=== PATIENT | female | born 1950 | race American Indian/Alaskan Native ===

== ENCOUNTER 2018-04-27 08:47 | Outpatient (CLI) | payer MEDICARE ==
--- NOTE | 2018-04-27 12:02 | Cat Scan Report ---
FINAL REPORT EXAM: CT ABDOMEN PELVIS WO CON HISTORY: K43.2 INCISIONAL HERNIA WITHOUT OBSTRUCTION OR GANGRENE TECHNIQUE: CT of the abdomen and pelvis without IV contrast. Coronal and sagittal reconstructed imaging provided. PRIORS: None currently available. FINDINGS: ABDOMEN: Mild scarring discoid subsegmental atelectasis at the lung bases. Partially imaged mild cardiomegaly. Small pericardial effusion. Liver, gallbladder, stomach, spleen, pancreas, and adrenals unremarkable. Kidneys: No hydronephrosis. No nephroureteral stones. IVC is unremarkable. Mild aortic atherosclerotic disease. No aneurysm. No periaortic or retroperitoneal mass or adenopathy. Wall thickening and inflammatory stranding at the proximal sigmoid colon. Diverticulosis. No perforation. No abscess. [id number] stool in the remainder of the colon without wall thickening or inflammatory changes. Terminal ileum is unremarkable. Appendix is not clearly identified. No pericecal inflammatory changes. Small bowel loops are unremarkable. No obstructive pattern. No free air. No free fluid. Fat containing ventral hernias without strangulation. PELVIS: Enlarged heterogeneous uterus with calcifications suggests fibroid uterus with degenerating fibroids. Bladder is unremarkable. There is no pelvic mass or adenopathy. Inguinal regions are unremarkable. Bones: No suspicious osseous lesions on this limited examination of the skeleton. Metastatic disease better evaluated with bone scan. Degenerative changes are in the spine. IMPRESSION: Multiple fat containing ventral hernias without strangulation. Focal sigmoid diverticulitis without perforation or abscess. Cardiomegaly. Small pericardial effusion.
== END 2018-04-27 08:48 | disposition home or self-care (01) ==
LOC: CT 08:47
PROVIDERS: ATTEND Surgery
DX: K43.2 Incisional hernia without obstruction or gangrene (principal); K57.32 Diverticulitis of large intestine without perforation or abscess without bleeding; I51.7 Cardiomegaly; I31.3 Pericardial effusion (noninflammatory); J98.11 Atelectasis; M47.899 Other spondylosis, site unspecified; E11.65 Type 2 diabetes mellitus with hyperglycemia; I10 Essential (primary) hypertension
CPT/HCPCS: 74176

== ENCOUNTER 2018-12-24 12:10 | Inpatient (IN) | payer MEDICARE ==
--- NOTE | 2018-12-24 12:29 | Emergency Department Report ---
Blank Doc - Documentation Documentation: This is a 68-year-old female that felt very hot and had a syncopal episode. This initial assessment/diagnostic orders/clinical plan/treatment(s) is/are subject to change based on patient's health status, clinical progression and re- assessment by fellow clinical providers in the ED. Further treatment and workup at subsequent clinical providers discretion. Patient/guardians urged not to elope from the ED as their condition may be serious if not clinically assessed and managed. Initial orders include: 1- Patient sent to MAIN for further evaluation and treatment 2- labs 3- EKG 4- CT head
[2018-12-24 12:48] LABS: Basophils # (Auto) 0.1 K/mm3 (0.0-0.1); Basophils % (Auto) 1.1 % (0.0-1.8); Eosinophils # (Auto) 0.1 K/mm3 (0.0-0.4); Hematocrit 30.8 % (30.3-42.9); Lymphocytes # (Auto) 1.5 K/mm3 (1.2-5.4); Lymphocytes % (Auto) 26.5 % (13.4-35.0); Mean Corpuscular HGB Conc 33 % (30-34); Mean Corpuscular Volume 86 fl (79-97); Monocytes # (Auto) 0.4 K/mm3 (0.0-0.8); Monocytes % (Auto) 6.7 % (0.0-7.3); Platelet Count 261 K/mm3 (140-440)
[2018-12-24 12:57] LABS: INR 0.94 (0.87-1.13)
[2018-12-24 12:58] LABS: Partial Thromboplastin Time 28.9 Sec. (24.2-36.6)
--- NOTE | 2018-12-24 13:02 | XRay Report ---
Chest 2 views: History: Syncope. Findings: Borderline cardiomegaly. Trachea is midline. No consolidation, pneumothorax or pleural effusion. There is ill-defined nodular density measuring 2 cm in diameter noted overlying the anterior aspect of lower thoracic vertebral body at the level of the hilum. This may be osteophytes or a lung nodule. Impression: Findings as detailed above. Recommend CT scan for further evaluation.
[2018-12-24] MEDS ORDERED: NACL 0.9% 500 ML 500 ML IV ONE (13:17)
--- NOTE | 2018-12-24 13:18 | Emergency Department Report ---
ED General Adult HPI - General Chief complaint: Syncope Stated complaint: PASSED OUT/DIABETIC Time Seen by Provider: 12/24/18 12:26 Source: patient, EMS (ems notes not available at time of chart dictation), RN notes reviewed Mode of arrival: Stretcher Limitations: No Limitations - History of Present Illness Initial comments: This is a 68-year-old female. Patient is not known to this provider previously. Past medical history includes diabetes, and hypertension. She does not know the name of her primary care doctor. The patient reports feeling in her usual state of health today, when she was at a store, and began to feel "overheated" she reports that after the sensation of feeling overheated, she walked outside, and continued to feel overheated. She then reports nonspecific dizziness, which she describes as a sensation of lightheadedness, nausea, malaise, feeling queasy, and then felt like she was going to pass out. However, she did not pass out. She is not having physical pain. She currently denies headache, neck pain, chest pain, abdominal pain, nausea, shortness of breath, urinary symptoms. The patient denies DVT, pulmonary embolus risk factors. The patient reports that this has not happened to her in the past, that she can recall. -: Gradual Severity scale (0 -10): 0 Consistency: now resolved Improves with: none Worsens with: none - Related Data Previous Rx's Medication Instructions Recorded Last Taken Type Sulfamethoxazole/Trimethoprim 1 each PO BID #20 tablet 11/01/16 12/24/18 09:00 Rx [Bactrim DS TAB] amLODIPine [Norvasc] 5 mg PO DAILY #30 tab 11/01/16 12/24/18 09:00 Rx metFORMIN [Glucophage] 500 mg PO BID #60 tablet 11/01/16 12/24/18 09:00 Rx Allergies Allergy/AdvReac Type Severity Reaction Status Date / Time No Known Allergies Allergy Unverified 06/23/16 14:03 ED Review of Systems ROS: Stated complaint: PASSED OUT/DIABETIC Other details as noted in HPI Constitutional: malaise, weakness. denies: fever Eyes: denies: eye discharge, vision change ENT: denies: epistaxis Respiratory: denies: cough Cardiovascular: syncope. denies: chest pain Gastrointestinal: nausea, vomiting Genitourinary: denies: dysuria Musculoskeletal: denies: back pain Skin: denies: lesions Neurological: weakness Psychiatric: denies: anxiety ED Past Medical Hx - Past Medical History Hx Hypertension: Yes Hx Diabetes: Yes - Social History Smoking Status: Never Smoker Substance Use Type: None - Medications Home Medications: Home Medications Medication Instructions Recorded Confirmed Last Taken Type Sulfamethoxazole/Trimethoprim 1 each PO BID #20 tablet 11/01/16 12/24/18 12/24/18 09:00 Rx [Bactrim DS TAB] amLODIPine [Norvasc] 5 mg PO DAILY #30 tab 11/01/16 12/24/18 12/24/18 09:00 Rx metFORMIN [Glucophage] 500 mg PO BID #60 tablet 11/01/16 12/24/18 12/24/18 09:00 Rx ED Physical Exam - General Limitations: No Limitations General appearance: alert, in no apparent distress - Head Head exam: Present: atraumatic, normocephalic - Eye Eye exam: Present: normal appearance, PERRL, EOMI, other (visual acuity intact to finger counting, color perception, reading at a close distance). Absent: nystagmus - ENT ENT exam: Present: normal exam, normal orophraynx, mucous membranes moist, normal external ear exam - Neck Neck exam: Present: normal inspection, full ROM. Absent: tenderness, meningismus - Respiratory Respiratory exam: Present: normal lung sounds bilaterally. Absent: respiratory distress - Cardiovascular Cardiovascular Exam: Present: regular rate, normal rhythm. Absent: bradycardia, tachycardia, irregular rhythm, diastolic murmur, rubs, gallop - GI/Abdominal GI/Abdominal exam: Present: soft. Absent: distended, tenderness, guarding, rebound, rigid, pulsatile mass - Extremities Exam Extremities exam: Present: normal inspection, full ROM, pedal edema, other (2+ pulses noted in the bilateral upper, lower extremities. Compartments soft. No long bony tenderness. The pelvis is stable.). Absent: calf tenderness - Back Exam Back exam: Present: normal inspection, full ROM. Absent: tenderness, CVA tenderness (R), paraspinal tenderness, vertebral tenderness - Neurological Exam Neurological exam: Present: alert, other (Extraocular movements intact. Tongue midline. No facial droop. Facial sensation intact to light touch in the V1, V2, V3 distribution bilaterally. 5 and 5 strength in 4 extremities.. Sensation is intact to light touch in 4 extremities.). Absent: motor sensory deficit - Psychiatric Psychiatric exam: Present: normal affect, normal mood - Skin Skin exam: Present: warm, dry, intact, normal color. Absent: rash ED Course Vital Signs 12/24/18 12/24/18 12/24/18 12:26 13:19 13:20 Temperature 97.7 F Pulse Rate 62 65 Respiratory 18 14 13 Rate Blood Pressure 142/67 175/86 O2 Sat by Pulse 99 100 100 Oximetry 12/24/18 12/24/18 12/24/18 13:21 13:22 13:23 Temperature 99 F Pulse Rate 62 63 Respiratory 13 14 Rate Blood Pressure 175/86 175/86 O2 Sat by Pulse 100 100 Oximetry 12/24/18 12/24/18 12/24/18 13:30 13:31 13:33 Temperature Pulse Rate 64 65 66 Respiratory 14 14 15 Rate Blood Pressure 185/83 185/83 185/83 O2 Sat by Pulse 100 100 99 Oximetry 12/24/18 12/24/18 12/24/18 13:35 13:37 13:39 Temperature Pulse Rate 63 68 67 Respiratory 17 16 19 Rate Blood Pressure 185/83 185/83 185/83 O2 Sat by Pulse 98 98 100 Oximetry 12/24/18 12/24/18 12/24/18 13:41 13:43 13:45 Temperature Pulse Rate 68 67 66 Respiratory 14 13 13 Rate Blood Pressure 185/83 185/83 185/83 O2 Sat by Pulse 100 99 100 Oximetry 12/24/18 12/24/18 12/24/18 14:05 14:07 14:09 Temperature Pulse Rate Respiratory Rate Blood Pressure 185/83 185/83 185/83 O2 Sat by Pulse 98 97 97 Oximetry 12/24/18 12/24/18 12/24/18 14:11 14:13 14:15 Temperature Pulse Rate Respiratory Rate Blood Pressure 185/83 185/83 185/83 O2 Sat by Pulse 99 98 99 Oximetry 12/24/18 12/24/18 12/24/18 14:17 14:19 14:21 Temperature Pulse Rate Respiratory Rate Blood Pressure 185/83 185/83 185/83 O2 Sat by Pulse 99 99 98 Oximetry 12/24/18 12/24/18 12/24/18 14:23 14:25 14:27 Temperature Pulse Rate Respiratory Rate Blood Pressure 185/83 185/83 185/83 O2 Sat by Pulse 99 99 99 Oximetry 12/24/18 12/24/18 12/24/18 14:29 14:30 14:31 Temperature Pulse Rate Respiratory Rate Blood Pressure 185/83 175/86 185/83 O2 Sat by Pulse 99 98 98 Oximetry 12/24/18 12/24/18 12/24/18 14:33 14:35 14:37 Temperature Pulse Rate Respiratory Rate Blood Pressure 185/83 185/83 185/83 O2 Sat by Pulse 99 98 98 Oximetry 12/24/18 12/24/18 12/24/18 14:39 14:41 14:43 Temperature Pulse Rate Respiratory Rate Blood Pressure 185/83 185/83 185/83 O2 Sat by Pulse 98 98 98 Oximetry 12/24/18 12/24/18 12/24/18 14:45 14:46 14:47 Temperature Pulse Rate Respiratory Rate Blood Pressure 190/104 190/104 190/104 O2 Sat by Pulse 96 97 97 Oximetry 12/24/18 12/24/18 12/24/18 14:49 14:51 14:53 Temperature Pulse Rate Respiratory Rate Blood Pressure 190/104 190/104 190/104 O2 Sat by Pulse 97 97 97 Oximetry 12/24/18 12/24/18 12/24/18 14:55 14:57 14:59 Temperature Pulse Rate Respiratory Rate Blood Pressure 190/104 190/104 190/104 O2 Sat by Pulse 97 97 98 Oximetry 12/24/18 12/24/18 12/24/18 15:01 15:03 15:05 Temperature Pulse Rate Respiratory Rate Blood Pressure 194/148 194/148 194/148 O2 Sat by Pulse 98 99 98 Oximetry 12/24/18 12/24/18 12/24/18 15:07 15:09 15:11 Temperature Pulse Rate Respiratory Rate Blood Pressure 194/148 194/148 194/148 O2 Sat by Pulse 98 98 98 Oximetry 12/24/18 12/24/18 12/24/18 15:13 15:15 15:16 Temperature Pulse Rate Respiratory Rate Blood Pressure 194/148 173/81 173/81 O2 Sat by Pulse 97 98 97 Oximetry 12/24/18 12/24/18 15:17 15:19 Temperature Pulse Rate Respiratory Rate Blood Pressure 173/81 173/81 O2 Sat by Pulse 98 98 Oximetry - Reevaluation(s) Reevaluation #1: 04/04/19 20:00 The nuclear medicine study is low probability for pulmonary embolus. ED Medical Decision Making - Lab Data Result diagrams: 12/24/18 12:31 12/24/18 12:31 Vital Signs 12/24/18 12/24/18 12/24/18 12:26 13:19 13:20 Temperature 97.7 F Pulse Rate 62 65 Respiratory 18 14 13 Rate Blood Pressure 142/67 175/86 O2 Sat by Pulse 99 100 100 Oximetry 12/24/18 12/24/18 12/24/18 13:21 13:22 13:23 Temperature 99 F Pulse Rate 62 63 Respiratory 13 14 Rate Blood Pressure 175/86 175/86 O2 Sat by Pulse 100 100 Oximetry Lab Results 12/24/18 12/24/18 12/24/18 Range/Units 12:31 12:31 12:31 WBC 5.6 (4.5-11.0) K/mm3 RBC 3.60 L (3.65-5.03) M/mm3 Hgb 10.0 L (10.1-14.3) gm/dl Hct 30.8 (30.3-42.9) % MCV 86 (79-97) fl MCH 28 (28-32) pg MCHC 33 (30-34) % RDW 15.0 (13.2-15.2) % Plt Count 261 (140-440) K/mm3 Lymph % (Auto) 26.5 (13.4-35.0) % [place] % (Auto) 6.7 (0.0-7.3) % Eos % (Auto) 2.0 (0.0-4.3) % Baso % (Auto) 1.1 (0.0-1.8) % Lymph # 1.5 (1.2-5.4) K/mm3 [place] # 0.4 (0.0-0.8) K/mm3 Eos # 0.1 (0.0-0.4) K/mm3 Baso # 0.1 (0.0-0.1) K/mm3 Seg Neutrophils % 63.7 (40.0-70.0) % Seg Neutrophils # 3.5 (1.8-7.7) K/mm3 PT 13.1 (12.2-14.9) Sec. INR 0.94 (0.87-1.13) APTT 28.9 (24.2-36.6) Sec. D-Dimer (0-234) ng/mlDDU Sodium 144 (137-145) mmol/L Potassium 4.7 (3.6-5.0) mmol/L Chloride 108.6 H (98-107) mmol/L Carbon Dioxide 20 L (22-30) mmol/L Anion Gap 20 mmol/L BUN 34 H (7-17) mg/dL Creatinine 2.9 H (0.7-1.2) mg/dL Estimated GFR 19 ml/min BUN/Creatinine Ratio 12 % Glucose 180 H (65-100) mg/dL POC Glucose (70-105) Calcium 10.3 H (8.4-10.2) mg/dL Magnesium 2.00 (1.7-2.3) mg/dL Total Bilirubin 0.30 (0.1-1.2) mg/dL Direct Bilirubin < 0.2 (0-0.2) mg/dL Indirect Bilirubin 0.1 mg/dL AST 18 (5-40) units/L ALT 20 (7-56) units/L Alkaline Phosphatase 126 (35-129) units/L Total Creatine Kinase 159 H (30-135) units/L CK-MB (CK-2) 4.4 H (0.0-4.0) ng/mL CK-MB (CK-2) Rel Index 2.7 (0-4) Troponin T 0.052 H (0.00-0.029) ng/mL Total Protein 7.3 (6.3-8.2) g/dL Albumin 3.4 L (3.9-5) g/dL Albumin/Globulin Ratio 0.9 % Triglycerides 132 (2-149) mg/dL Cholesterol 231 H (50-199) mg/dL LDL Cholesterol Direct 170 H (50-130) mg/dL HDL Cholesterol 63 H (40-59) mg/dL Cholesterol/HDL Ratio 3.66 % TSH (0.270-4.200) mlU/mL 12/24/18 12/24/18 12/24/18 Range/Units 12:33 13:22 13:31 WBC (4.5-11.0) K/mm3 RBC (3.65-5.03) M/mm3 Hgb (10.1-14.3) gm/dl Hct (30.3-42.9) % MCV (79-97) fl MCH (28-32) pg MCHC (30-34) % RDW (13.2-15.2) % Plt Count (140-440) K/mm3 Lymph % (Auto) (13.4-35.0) % [place] % (Auto) (0.0-7.3) % Eos % (Auto) (0.0-4.3) % Baso % (Auto) (0.0-1.8) % Lymph # (1.2-5.4) K/mm3 [place] # (0.0-0.8) K/mm3 Eos # (0.0-0.4) K/mm3 Baso # (0.0-0.1) K/mm3 Seg Neutrophils % (40.0-70.0) % Seg Neutrophils # (1.8-7.7) K/mm3 PT (12.2-14.9) Sec. INR (0.87-1.13) APTT (24.2-36.6) Sec. D-Dimer (0-234) ng/mlDDU Sodium (137-145) mmol/L Potassium (3.6-5.0) mmol/L Chloride (98-107) mmol/L Carbon Dioxide (22-30) mmol/L Anion Gap mmol/L BUN (7-17) mg/dL Creatinine (0.7-1.2) mg/dL Estimated GFR ml/min BUN/Creatinine Ratio % Glucose (65-100) mg/dL POC Glucose 174 H 151 H (70-105) Calcium (8.4-10.2) mg/dL Magnesium (1.7-2.3) mg/dL Total Bilirubin (0.1-1.2) mg/dL Direct Bilirubin (0-0.2) mg/dL Indirect Bilirubin mg/dL AST (5-40) units/L ALT (7-56) units/L Alkaline Phosphatase (35-129) units/L Total Creatine Kinase (30-135) units/L CK-MB (CK-2) (0.0-4.0) ng/mL CK-MB (CK-2) Rel Index (0-4) Troponin T (0.00-0.029) ng/mL Total Protein (6.3-8.2) g/dL Albumin (3.9-5) g/dL Albumin/Globulin Ratio % Triglycerides (2-149) mg/dL Cholesterol (50-199) mg/dL LDL Cholesterol Direct (50-130) mg/dL HDL Cholesterol (40-59) mg/dL Cholesterol/HDL Ratio % TSH 3.130 (0.270-4.200) mlU/mL 12/24/18 12/24/18 Range/Units 13:31 Unknown WBC (4.5-11.0) K/mm3 RBC (3.65-5.03) M/mm3 Hgb (10.1-14.3) gm/dl Hct (30.3-42.9) % MCV (79-97) fl MCH (28-32) pg MCHC (30-34) % RDW (13.2-15.2) % Plt Count (140-440) K/mm3 Lymph % (Auto) (13.4-35.0) % [place] % (Auto) (0.0-7.3) % Eos % (Auto) (0.0-4.3) % Baso % (Auto) (0.0-1.8) % Lymph # (1.2-5.4) K/mm3 [place] # (0.0-0.8) K/mm3 Eos # (0.0-0.4) K/mm3 Baso # (0.0-0.1) K/mm3 Seg Neutrophils % (40.0-70.0) % Seg Neutrophils # (1.8-7.7) K/mm3 PT (12.2-14.9) Sec. INR (0.87-1.13) APTT (24.2-36.6) Sec. D-Dimer 305.08 H (0-234) ng/mlDDU Sodium (137-145) mmol/L Potassium (3.6-5.0) mmol/L Chloride (98-107) mmol/L Carbon Dioxide (22-30) mmol/L Anion Gap mmol/L BUN (7-17) mg/dL Creatinine (0.7-1.2) mg/dL Estimated GFR ml/min BUN/Creatinine Ratio % Glucose (65-100) mg/dL POC Glucose (70-105) Calcium (8.4-10.2) mg/dL Magnesium (1.7-2.3) mg/dL Total Bilirubin (0.1-1.2) mg/dL Direct Bilirubin (0-0.2) mg/dL Indirect Bilirubin mg/dL AST (5-40) units/L ALT (7-56) units/L Alkaline Phosphatase (35-129) units/L Total Creatine Kinase 161 H (30-135) units/L CK-MB (CK-2) (0.0-4.0) ng/mL CK-MB (CK-2) Rel Index (0-4) Troponin T (0.00-0.029) ng/mL Total Protein (6.3-8.2) g/dL Albumin (3.9-5) g/dL Albumin/Globulin Ratio % Triglycerides (2-149) mg/dL Cholesterol (50-199) mg/dL LDL Cholesterol Direct (50-130) mg/dL HDL Cholesterol (40-59) mg/dL Cholesterol/HDL Ratio % TSH (0.270-4.200) mlU/mL - EKG Data -: EKG Interpreted by Tn EKG shows normal: sinus rhythm Rate: normal - EKG Data 12/24/18 15:14 This is a sinus rhythm, 68 bpm, normal axis, QTC prolonged, poor R-wave progression, abnormal EKG, not having chest pain, borderline high left ventricu lar voltage lateral leads, abnormal EKG, not consistent with ST elevation myocardial infarction, Q waves noted in the inferior leads, appears unchanged from prior EKG from October 2016. - Radiology Data Radiology results: report reviewed, image reviewed Print Report Referring Physician: JANUSZ TOLENTINO Patient Name: ANATOLIY BARTHOLOMEW Date of : 1950 Sex: Female Report Date: 2018-12-24 Report Status: [place] [address] Cat Scan Report Signed Patient: ANATOLIY BARTHOLOMEW MR#: [id number] : 1950 Acct:[id number] Age/Sex: 68 / F ADM Date: 12/24/18 Loc: ED Attending Dr: Ordering Physician: JANUSZ TOLENTINO NP Date of Service: 12/24/18 Procedure(s): CT head/brain wo con Accession Number(s): [id number] cc: JANUSZ TOLENTINO NP CT scan of head without IV contrast: No previous studies available. History: Syncope. Findings: Ventricles are midline location. There is dilatation noted of the left ventricle compared to the right. There is ill-defined large area of low attenuation left posterior temporal parietal region. No extra-axial fluid collection. Normal brainstem and cerebellum appear Impression: Large ill- defined area of low attenuation left temporoparietal region is probably chronic ischemia and less likely neoplasm. Clinical correlation and if necessary further evaluation with MRI scan may be advised. Transcribed By: PTP Dictated By: CHAITANYA FAGAN MD Electronically Authenticated By: CHAITANYA FAGAN MD Signed Date/Time: 12/24/18 1358 Print Report Referring Physician: JANUSZ TOLENTINO Patient Name: ANATOLIY BARTHOLOMEW Date of : 1950 Sex: Female Report Date: 2018-12-24 Report Status: Finalized Findings [address] [address] XRay Report Signed Patient: ANATOLIY BARTHOLOMEW MR#: [id number] : 1950 Acct:[id number] Age/Sex: 68 / F ADM Date: 12/24/18 Loc: ED Attending Dr: Ordering Physician: JANUSZ TOLENTINO NP Date of Service: 12/24/18 P rocedure(s): XR chest routine 2V Accession Number(s): [id number] cc: JANUSZ TOLENTINO NP Fluoro Time In Minutes: Chest 2 views: History: Syncope. Findings: Borderline cardiomegaly. Trachea is midline. No consolidation, pneumothorax or pleural effusion. There is ill-defined nodular density measuring 2 cm in diameter noted overlying the anterior aspect of lower thoracic vertebral body at the level of the hilum. This may be osteophytes or a lung nodule. Impression: Findings as detailed above. Recommend CT scan for further evaluation. Transcribed By: PTP Dictated By: CHAITANYA FAGAN MD Electronically Authenticated By: CHAITANYA FAGAN MD Signed Date/Time: 12/24/18 1242 DD/ 1240 TD/TT: 12/24/18 1242 - Medical Decision Making Differential diagnosis, including but not limited to: Orthostasis, vasovagal event, structural cardiac disease, acute coronary syndrome, pulmonary embolus, dehydration, renal insufficiency, pneumonia, urinary tract infection Assessment and plan: 68-year-old female, advanced age, multiple cardiovascular risk factors, with nonspecific dizziness, lightheadedness, now resolved, sensation of near syncope, now resolved, GCS of 15, NIH score of 0, with abnormal EKG, acute renal insufficiency, elevated troponin, low risk by well's criteria, no pulmonary embolus or DVT risk factors. She is pain-free at this time. She will be given IV fluids. Nuclear medicine study is pending. Elevated troponin reviewed and appreciated, likely secondary to renal insufficiency, and probable dehydration. Hospital physician, Dr. Jamil, to admit patient to the medical service. Patient will require admission to the medical service for evaluation of near syncope, renal insufficiency, and elevated troponin. Critical care attestation.: If time is entered above; I have spent that time in minutes in the direct care of this critically ill patient, excluding procedure time. ED Disposition Clinical Impression: ESEQUIEL (acute kidney injury), Near syncope, Elevated troponin Disposition: OP ADMIT IP TO THIS HOSP Is pt being admited?: Yes Does the pt Need Aspirin: Yes Condition: Stable
[2018-12-24 13:26] LABS: Creatine Kinase MB 4.4 ng/mL (0.0-4.0)
[2018-12-24 13:28] LABS: Alanine Aminotransferase 20 units/L (7-56); Albumin 3.4 g/dL (3.9-5); BUN/Creatinine Ratio 12; Blood Urea Nitrogen 34 mg/dL (7-17); Calcium 10.3 mg/dL (8.4-10.2); Hemolysis Index 8
[2018-12-24 13:31] LABS: Bilirubin,Direct < 0.2 mg/dL (0-0.2)
[2018-12-24 13:44] LABS: Chol/HDL Ratio 3.66 %; HDL Cholesterol 63 mg/dL (40-59); LDL Cholesterol,Direct 170 mg/dL (50-130)
--- NOTE | 2018-12-24 14:19 | Cat Scan Report ---
CT scan of head without IV contrast: No previous studies available. History: Syncope. Findings: Ventricles are midline location. There is dilatation noted of the left ventricle compared to the right. There is ill-defined large area of low attenuation left posterior temporal parietal region. No extra-axial fluid collection. Normal brainstem and cerebellum appear Impression: Large ill-defined area of low attenuation left temporoparietal region is probably chronic ischemia and less likely neoplasm. Clinical correlation and if necessary further evaluation with MRI scan may be advised.
[2018-12-24] MEDS ORDERED: BABY ASPIRIN PO ONE (14:30)
--- NOTE | 2018-12-24 14:31 | History and Physical Report ---
History of Present Illness Chief complaint: I dont feel good History of present illness: 68 YO Female with HTN, DM, Dementia presents to ED for evaluation. Pt states that she has experienced feeling "dizzy", and "getting Overheated" as well as feeling weak and nauseated and feeling as if she was going to pass out. Pt denies passing out. Pt transported to [facility] ED via private vehicle. Pt seen and evaluated in ED. Pt denies fever, chills, CP, Palpitations, NVD, Syncope, Vertigo, Headache, Productive cough, BRBPR, unintentional weight loss, night sweats, skin rash, or recent ill contacts, prolonged travel/immobility, individual/family history of DVT/PE. Pt found to have ARF, Acidosis, as well as elevated D dimer. Pt admitted to [facility] unit. Nephrology consulted in ED. VQ scan ordered and is pending at time of admission. No prior admissions for review. All listed medication reconciled at time of admission. Past History Past Medical History: diabetes, hypertension, other (Dementia) Past Surgical History: No surgical history, Other (reviewed) Social history: , lives with family. denies: smoking, alcohol abuse, p rescription drug abuse Family history: no significant family history (reviewed) Medications and Allergies Allergies Allergy/AdvReac Type Severity Reaction Status Date / Time No Known Allergies Allergy Unverified 06/23/16 14:03 Home Medications Medication Instructions Recorded Confirmed Last Taken Type Sulfamethoxazole/Trimethoprim 1 each PO BID #20 tablet 11/01/16 Unknown Rx [Bactrim DS TAB] amLODIPine [Norvasc] 5 mg PO DAILY #30 tab 11/01/16 Unknown Rx metFORMIN [Glucophage] 500 mg PO BID #60 tablet 11/01/16 Unknown Rx Review of Systems Constitutional: weakness, malaise, no weight loss, no weight gain, no fever, no chills Ears, nose, mouth and throat: no ear pain, no tinnitis, no decreased hearing, no nose pain Breasts: no change in shape, no swelling, no mass Cardiovascular: no chest pain, no orthopnea, no palpitations, no rapid/irregular heart beat, no edema Respiratory: no cough, no cough with sputum, no excessive sputum, no hemoptysis, no shortness of breath Gastrointestinal: no nausea, no vomiting, no diarrhea, no constipation Genitourinary Female: no pelvic pain, no flank pain, no menorrhagia, no dysuria, no urinary frequency, no urgency Rectal: no pain, no incontinence, no bleeding Musculoskeletal: no neck stiffness, no neck pain, no arm numbness/tingling, no low back pain Integumentary: no rash, no pruritis, no redness, no sores, no wounds Neurological: no head injury, no transient paralysis, no paralysis, no weakness, no parathesias Psychiatric: no anxiety, no memory loss, no hypersomnia, no change in libido, no suicidal ideation Endocrine: no cold intolerance, no heat intolerance, no polyphagia, no excessive thirst, no polydipsia, no polyuria, no nocturia Hematologic/Lymphatic: no easy bruising, no easy bleeding, no lymphadenopathy, no lymphedema Allergic/Immunologic: no urticaria, no allergic rhinitis, no wheezing, no persistent infections, no anaphylaxis Exam - Constitutional Vitals: Temp Pulse Resp BP Pulse Ox 99 F 63 14 175/86 100 12/24/18 13:23 12/24/18 13:22 12/24/18 13:22 12/24/18 13:22 12/24/18 13:22 General appearance: Present: mild distress - EENT Eyes: Present: PERRL ENT: hearing intact, clear oral mucosa - Neck Neck: Present: supple, normal ROM - Respiratory Respiratory effort: normal Respiratory: bilateral: CTA - Cardiovascular Heart Sounds: Present: S1 & S2. Absent: rub, click - Extremities Extremities: pulses symmetrical, No edema Peripheral Pulses: within normal limits - Abdominal General gastrointestinal: Present: soft, non-tender, non-distended, normal bowel sounds Female genitourinary: Present: normal - Integumentary Integumentary: Present: clear, warm, dry - Musculoskeletal Musculoskeletal: gait normal, strength equal bilaterally - Psychiatric Psychiatric: appropriate mood/affect, intact judgment & insight - Neurologic Neurologic: CNII-XII intact, moves all extremities Results - Labs CBC & Chem 7: 12/24/18 12:31 12/24/18 12:31 Labs: Abnormal lab results 12/24/18 12/24/18 12/24/18 Range/Units 12:31 12:31 12:33 RBC 3.60 L (3.65-5.03) M/mm3 Hgb 10.0 L (10.1-14.3) gm/dl D-Dimer (0-234) ng/mlDDU Chloride 108.6 H (98-107) mmol/L Carbon Dioxide 20 L (22-30) mmol/L BUN 34 H (7-17) mg/dL Creatinine 2.9 H (0.7-1.2) mg/dL Glucose 180 H (65-100) mg/dL POC Glucose 174 H (70-105) Calcium 10.3 H (8.4-10.2) mg/dL Total Creatine Kinase 159 H (30-135) units/L CK-MB (CK-2) 4.4 H (0.0-4.0) ng/mL Troponin T 0.052 H (0.00-0.029) ng/mL Albumin 3.4 L (3.9-5) g/dL Cholesterol 231 H (50-199) mg/dL LDL Cholesterol Direct 170 H (50-130) mg/dL HDL Cholesterol 63 H (40-59) mg/dL 12/24/18 12/24/18 Range/Units 13:22 Unknown RBC (3.65-5.03) M/mm3 Hgb (10.1-14.3) gm/dl D-Dimer 305.08 H (0-234) ng/mlDDU Chloride (98-107) mmol/L Carbon Dioxide (22-30) mmol/L BUN (7-17) mg/dL Creatinine (0.7-1.2) mg/dL Glucose (65-100) mg/dL POC Glucose 151 H (70-105) Calcium (8.4-10.2) mg/dL Total Creatine Kinase (30-135) units/L CK-MB (CK-2) (0.0-4.0) ng/mL Troponin T (0.00-0.029) ng/mL Albumin (3.9-5) g/dL Cholesterol (50-199) mg/dL LDL Cholesterol Direct (50-130) mg/dL HDL Cholesterol (40-59) mg/dL Assessment and Plan - Patient Problems (1) ARF (acute renal failure) with tubular necrosis Current Visit: Yes Status: Acute Plan to address problem: INF resuscitation therapy, Nephrology consulted, renal ultrasound, urine electrolytes, hepatitis panel, (2) Acidosis Current Visit: Yes Status: Acute (3) HLD (hyperlipidemia) Current Visit: Yes Status: Acute Plan to address problem: low cholesterol diet, supportive care. (4) D-dimer, elevated Current Visit: Yes Status: Acute Plan to address problem: VQ Scan, Pending at time of admission. (5) Abnormal brain scan Current Visit: Yes Status: Acute Plan to address problem: Frontotemporal hypoattenuation on CT Scan of brain, Neurology consulted, MRI brain, Neuro checks, seizure precautions, (6) DVT prophylaxis Current Visit: Yes Status: Acute Plan to address problem: SCD to BLE while in bed, (7) Diabetes Current Visit: Yes Status: Acute Qualifiers: Diabetes mellitus complication status: with other specified complication Plan to address problem: ADA diet, insulin, accu check
[2018-12-24] MEDS ORDERED: D50W (25GM) Syringe IV PRN (14:32)
[2018-12-24] MEDS ORDERED: ZOFRAN IV PRN (14:51)
[2018-12-24] MEDS ORDERED: SODIUM CHLORIDE FLUSH SYRINGE 10 ML IV PRN (14:51)
[2018-12-24] MEDS ORDERED: TYLENOL PO PRN (14:51)
[2018-12-24] MEDS ORDERED: PROVENTIL IH PRN (14:51)
--- NOTE | 2018-12-24 16:31 | Nuclear Medicine Report ---
PROCEDURE: Nuclear medicine ventilation and perfusion lung scan. TECHNIQUE: Ventilation imaging was done in the posterior projection using 13.56 mCi of xenon-133 gas . Perfusion imaging was done in multiple projections using 3.99 mCi of technetium 99m MAA. HISTORY: Syncope. COMPARISONS: None. FINDINGS: There is slightly inhomogeneous ventilation bilaterally. There is some trapping of xenon gas bilatera lly during the washout phase. This is worse in the left lung. The perfusion images are more homogeneo us than the ventilation images. There are no perfusion defects identified. The scan caries a very low probability of pulmonary embolism. IMPRESSION: Very low probability of pulmonary embolism. This document is electronically signed by Will Bland MD., December 24 2018 04:30:05 PM ET
[2018-12-24 17:17] LABS: Free T4 (Free Thyroxine) 0.89 ng/dL (0.76-1.46); Hepatitis B Surface Antigen Non-Reactive (Negative); Hepatitis C Virus Antibody Non-Reactive (NonReactive)
[2018-12-24] MEDS: HumaLOG SUB-Q SCH ×2 (18:09→22:33)
[2018-12-24 18:33] LABS: Bacteria,Urine 1+ /HPF (Negative); Bilirubin,Urine NEG (Negative); Blood,Urine SM (Negative); Color,Urine Yellow (Yellow); Mucus,Urine FEW /HPF; Urobilinogen,Urine < 2.0 mg/dL (<2.0)
[2018-12-24 18:39] LABS: Creatinine,Urine 64.4 mg/dL (0.1-20.0)
[2018-12-24 18:46] LABS: Protein,Urine >500 mg/dL (Negative)
[2018-12-24] MEDS: SODIUM CHLORIDE FLUSH SYRINGE 10 ML IV SCH (22:34)
[2018-12-25 07:42] LABS: Calcium 9.6 mg/dL (8.4-10.2)
--- NOTE | 2018-12-25 07:48 | Consultation ---
History of Present Illness - Reason for Consult Consult date: 12/25/18 acute renal failure - History of Present Illness Patient is a 68 YO Female with history significant for HTN, DM type 2 and D ementia who presented to [facility] ED yesterday with c/o profuse sweating and felt like overheated. Patient is a poor historian and vague about the symptoms. She also reports having weakness, nausea and some dizziness. No h/o fever, chills, CP, Palpitations, vomiting, diarrhea, abd pain, Syncope, Headache, cough, rash or leg swelling. She was found to have creatinine of 2.9, increased from 1.2 about 2 years ago. Nephrology was consulted for further evaluation. Past History Past Medical History: diabetes, hypertension, other (Dementia) Past Surgical History: No surgical history, Other (reviewed) Social history: , lives with family. denies: smoking, alcohol abuse, prescription drug abuse Family history: no significant family history (reviewed) Medications and Allergies Allergies Allergy/AdvReac Type Severity Reaction Status Date / Time No Known Allergies Allergy Unverified 06/23/16 14:03 Home Medications Medication Instructions Recorded Confirmed Last Taken Type Sulfamethoxazole/Trimethoprim 1 each PO BID #20 tablet 11/01/16 12/24/18 12/24/18 09:00 Rx [Bactrim DS TAB] amLODIPine [Norvasc] 5 mg PO DAILY #30 tab 11/01/16 12/24/18 12/24/18 09:00 Rx metFORMIN [Glucophage] 500 mg PO BID #60 tablet 11/01/16 12/24/18 12/24/18 09:00 Rx Active Meds: Active Medications Acetaminophen (Tylenol) 650 mg PO Q4H PRN PRN Reason: Pain MILD(1-3)/Fever >100.5/VICTORIA Albuterol (Proventil) 2.5 mg IH Q4HRT PRN PRN Reason: Shortness Of Breath Amlodipine Besylate (Norvasc) 5 mg PO DAILY ZACARIAS Dextrose (D50w (25gm) Syringe) 50 ml IV PRN PRN PRN Reason: Hypoglycemia Insulin Human Lispro (Humalog) 0 unit SUB-Q ACHS ZACARIAS; Protocol Last Admin: 12/24/18 22:33 Dose: 2 unit Documented by: Ondansetron HCl (Zofran) 4 mg IV Q8H PRN PRN Reason: Nausea And Vomiting Sodium Chloride (Sodium Chloride Flush Syringe 10 Ml) 10 ml IV BID ZACARIAS Last Admin: 12/24/18 22:34 Dose: 10 ml Documented by: Sodium Chloride (Sodium Chloride Flush Syringe 10 Ml) 10 ml IV PRN PRN PRN Reason: LINE FLUSH Review of Systems Constitutional: no weight loss, no weight gain, no fever, no chills Breasts: deferred Cardiovascular: lightheadedness, high blood pressure, no chest pain, no orthopnea, no palpitations, no edema, no syncope, no shortness of breath, no leg edema Respiratory: no cough, no hemoptysis, no shortness of breath, no dyspnea on exer tion, no sleep apnea, no home oxygen Gastrointestinal: nausea, no abdominal pain, no vomiting, no diarrhea, no melena Genitourinary Female: no dysuria, no hematuria Rectal: no bleeding Integumentary: no wounds, no jaundice Neurological: no double vision, no loss of vision Exam - Vital Signs Vital signs: Vital Signs Temp Pulse Resp BP Pulse Ox 97.7 F 62 18 142/67 99 12/24/18 12:26 12/24/18 12:26 12/24/18 12:26 12/24/18 12:26 12/24/18 12:26 - General Appearance General appearance: well-developed, well-nourished, appears stated age, other ( not in distress) EENT: ATNC, PERRL, mucous membranes moist, hearing intact, vision intact Neck: Present: neck supple, trachea midline Respiratory: Clear to Ascultation Heart: regular, S1S2, no murmurs Gastrointestinal: Present: normoactive bowel sounds. Absent: tenderness, distended Integumentary: no rash, warm and dry Neurologic: no focal deficit, no asterixis Musculoskeletal: Present: other (no edema) Results - Lab Results 12/24/18 12:31 12/25/18 06:50 Most recent lab results Calcium 9.6 mg/dL (8.4-10.2) 12/25/18 06:50 Magnesium 2.00 mg/dL (1.7-2.3) 12/24/18 12:31 Urine Creatinine 64.4 mg/dL (0.1-20.0) H 12/24/18 18:08 Urine Sodium 65 mmol/L 12/24/18 18:08 - Image Kidney/bladder ultrasound: pending Assessment and Plan 1. Acute kidney injury: Likely vasomotor mediated ESEQUIEL superimposed on CKD. Suspect ATN. Patient was also taking Bactrim. Continue IV fluids. Renal US pending. Renal function is better. Monitor renal function. Avoid nephrotoxic agents. Meds dosage based on GFR. 2. FEN: Volume depletion, continue IV fluids. Mild hyeprcalcemia, 2/2 volume depletion, improved now. 3. Hypertension: Monitor BP. 4. Anemia: Present on admission.
[2018-12-25] MEDS ORDERED: NORVASC PO SCH (10:00)
[2018-12-25] MEDS: HumaLOG SUB-Q SCH ×2 (10:19→13:00)
[2018-12-25] MEDS: SODIUM CHLORIDE FLUSH SYRINGE 10 ML IV SCH ×2 (10:20→23:18)
--- NOTE | 2018-12-25 10:43 | Consultation ---
History of Present Illness Consult date: 12/25/18 Requesting physician: JOANNA KEY Reason for Consult: CT brain with attenuation History of present illness: This is a 68 year old right handed female who reports feeling in her usual state of health 12/24/18, when she was at a store, and began to feel "overheated" she reports that after the sensation of feeling overheated, she walked outside, and continued to feel overheated. She then reports nonspecific dizziness, which she describes as a sensation of lightheadedness, nausea, malaise, feeling queasy, and then felt like she was going to pass out. She presented to the ER where evaluation for PE was neg. She was found to have renal compromise. CY brain reveals a left frontal mass effect. The pt. denies headache, nausea, weakness of the extremities or numbness. She denies problems with balance or walking. She denies ever having a seizure. This a.m. she states that she feels well and the symptoms that occurred yesterday have resolved. Past History Past Medical History: diabetes, hypertension, other (Dementia) Past Surgical History: No surgical history, Other (reviewed) Social history: , lives with family. denies: smoking, alcohol abuse, prescription drug abuse Family history: no significant family history (reviewed) Medications and Allergies Allergies Allergy/AdvReac Type Severity Reaction Status Date / Time No Known Allergies Allergy Unverified 06/23/16 14:03 Home Medications Medication Instructions Recorded Confirmed Last Taken Type Sulfamethoxazole/Trimethoprim 1 each PO BID #20 tablet 11/01/16 12/24/18 12/24/18 09:00 Rx [Bactrim DS TAB] amLODIPine [Norvasc] 5 mg PO DAILY #30 tab 11/01/16 12/24/18 12/24/18 09:00 Rx metFORMIN [Glucophage] 500 mg PO BID #60 tablet 11/01/16 12/24/18 12/24/18 09:00 Rx Active Meds: Active Medications Acetaminophen (Tylenol) 650 mg PO Q4H PRN PRN Reason: Pain MILD(1-3)/Fever >100.5/VICTORIA Albuterol (Proventil) 2.5 mg IH Q4HRT PRN PRN Reason: Shortness Of Breath Amlodipine Besylate (Norvasc) 5 mg PO DAILY ZACARIAS Last Admin: 12/25/18 10:20 Dose: 5 mg Documented by: Dextrose (D50w (25gm) Syringe) 50 ml IV PRN PRN PRN Reason: Hypoglycemia Insulin Human Lispro (Humalog) 0 unit SUB-Q ACHS [facility]; Protocol Last Admin: 12/25/18 10:19 Dose: Not Given Documented by: Ondansetron HCl (Zofran) 4 mg IV Q8H PRN PRN Reason: Nausea And Vomiting Sodium Chloride (Sodium Chloride Flush Syringe 10 Ml) 10 ml IV BID [facility] Last Admin: 12/25/18 10:20 Dose: 10 ml Documented by: Sodium Chloride (Sodium Chloride Flush Syringe 10 Ml) 10 ml IV PRN PRN PRN Reason: LINE FLUSH Review of Systems All systems: negative Cardiovascular: lightheadedness Physical Examination - Vital Signs Vital Signs: Vital Signs Temp Pulse Resp BP Pulse Ox 97.7 F 62 18 142/67 99 12/24/18 12:26 12/24/18 12:26 12/24/18 12:26 12/24/18 12:26 12/24/18 12:26 - Physical Exam Narrative exam: General - Resting comfortably in bed Neurological exam - Speech fluent, relates history well. Oriented times 3. optimization consultant - EOMs full, face symmetric, tongue midline. V-1 thru V-3 intact bilaterally. Hearing intact. Motor - 5/5 throughout Reflexes - trace bilaterally. Sensory - intact to touch and sharp. Cerebellar - intact FTN, Nadia and fine finger movements. Results - Laboratory Findings CBC and BMP: 12/24/18 12:31 12/25/18 06:50 Abnormal Lab Findings: Abnormal Labs 12/24/18 12/24/18 12/24/18 12:31 12:31 12:33 RBC 3.60 L Hgb 10.0 L D-Dimer Chloride 108.6 H Carbon Dioxide 20 L BUN 34 H Creatinine 2.9 H Glucose 180 H POC Glucose 174 H Hemoglobin A1c Calcium 10.3 H Total Creatine Kinase 159 H CK-MB (CK-2) 4.4 H Troponin T 0.052 H Albumin 3.4 L Cholesterol 231 H LDL Cholesterol Direct 170 H HDL Cholesterol 63 H Urine Creatinine 12/24/18 12/24/18 12/24/18 13:22 13:31 15:32 RBC Hgb D-Dimer Chloride Carbon Dioxide BUN Creatinine Glucose POC Glucose 151 H 138 H Hemoglobin A1c Calcium Total Creatine Kinase 161 H CK-MB (CK-2) Troponin T Albumin Cholesterol LDL Cholesterol Direct HDL Cholesterol Urine Creatinine 12/24/18 12/24/18 12/24/18 17:27 18:08 21:58 RBC Hgb D-Dimer Chloride Carbon Dioxide BUN Creatinine Glucose POC Glucose 131 H 166 H Hemoglobin A1c Calcium Total Creatine Kinase CK-MB (CK-2) Troponin T Albumin Cholesterol LDL Cholesterol Direct HDL Cholesterol Urine Creatinine 64.4 H 12/24/18 12/24/18 12/25/18 Unknown Unknown 06:50 RBC Hgb D-Dimer 305.08 H Chloride 110.3 H Carbon Dioxide BUN 31 H Creatinine 2.4 H Glucose 106 H POC Glucose Hemoglobin A1c 7.4 H Calcium Total Creatine Kinase CK-MB (CK-2) Troponin T Albumin Cholesterol LDL Cholesterol Direct HDL Cholesterol Urine Creatinine Assessment and Plan 68 year old female who had a spell on 12/24/18 consisting of feeling hot, then light headed and nauseous. These symptoms have resolved. PE has been ruled out. Renal insufficiency was noted. CT reveals attenuation in left frontal lobe. An MRI scan has been ordered. Plan - Await results of MRI. Because of renal compromise she cannot have a contrast study.
--- NOTE | 2018-12-25 11:26 | Progress Note ---
Assessment and Plan Assessment and plan: 68-year-old woman who presents after feeling hot and nauseus and having an episode of syncope. It occurred when she was walking around in a store. Past medical history; hypertension, diabetes, dementia, peripheral vascular disease Labs show elevated creatinine, elevated d-dimer VQ scan is low probability for pulmonary Chest x-ray shows ill-defined nodular density measuring 2 cm in the lower thoracic vertebral body, maybe a osteophytes versus lung nodule CT head shows large ill-defined area of low attenuation in left temporoparietal region which is most likely chronic ischemia, less likely neoplasm Diagnoses Transient autonomic imbalance Dehydration Hypertension Diabetes , a1c 7.4 abnormal chest x-ray, questionable lung nodule Abnormal CT head, chronic ischemia versus neoplasm Acute kidney injury likely due to vasomotor nephropathy htn urgency Plan Syncope/abnormal CT head: , neurology input appreciated, awaiting MRI brain -Acute kidney injury; continue IV fluids, renal function is improving -Questionable lung nodule; obtain CT chest -Sliding-scale insulin for diabetes, optimize blood pressure medications DVT prophylaxis with Lovenox History Interval history: Review of systems Constitutional: No fevers, no malaise, no joint pains CVS: No chest pain, no orthopnea, no dyspnea on exertion, no pedal edema GI: No abdominal pain, no diarrhea, no vomiting, no constipation Respiratory: No shortness of breath, no wheezing, no coughing Hospitalist Physical - Physical exam Narrative exam: General.: Appears well, no distress, nontoxic HEENT: Moist mucous membranes, extraocular muscles intact, no lymphadenopathy Neck: supple Cardiac: S1-S2 heard Lungs: clear to auscultation bilaterally Abdomen: soft , nontender, nondistended, bowel sounds positive Extremities: no edema clubbing or cyanosis Skin: no rash or lesions Neurologic: no gross focal deficits Psych: calm, and cooperative - Constitutional Vitals: Temp Pulse Resp BP Pulse Ox 98.4 F 72 20 173/75 98 12/25/18 08:13 12/25/18 08:13 12/25/18 08:13 12/25/18 10:20 12/25/18 08:13 General appearance: Present: mild distress Results - Labs CBC & Chem 7: 12/24/18 12:31 12/25/18 06:50 Labs: Laboratory Last Values WBC 5.6 K/mm3 (4.5-11.0) 12/24/18 12:31 RBC 3.60 M/mm3 (3.65-5.03) L 12/24/18 12:31 Hgb 10.0 gm/dl (10.1-14.3) L 12/24/18 12:31 Hct 30.8 % (30.3-42.9) 12/24/18 12:31 MCV 86 fl (79-97) 12/24/18 12:31 MCH 28 pg (28-32) 12/24/18 12:31 MCHC 33 % (30-34) 12/24/18 12:31 RDW 15.0 % (13.2-15.2) 12/24/18 12:31 Plt Count 261 K/mm3 (140-440) 12/24/18 12:31 Lymph % (Auto) 26.5 % (13.4-35.0) 12/24/18 12:31 [place] % (Auto) 6.7 % (0.0-7.3) 12/24/18 12:31 Eos % (Auto) 2.0 % (0.0-4.3) 12/24/18 12:31 Baso % (Auto) 1.1 % (0.0-1.8) 12/24/18 12:31 Lymph # 1.5 K/mm3 (1.2-5.4) 12/24/18 12: [place] # 0.4 K/mm3 (0.0-0.8) 12/24/18 12:31 Eos # 0.1 K/mm3 (0.0-0.4) 12/24/18 12:31 Baso # 0.1 K/mm3 (0.0-0.1) 12/24/18 12:31 Seg Neutrophils % 63.7 % (40.0-70.0) 12/24/18 12: Seg Neutrophils # 3.5 K/mm3 (1.8-7.7) 12/24/18 12:31 PT 13.1 Sec. (12.2-14.9) 12/24/18 12:31 INR 0.94 (0.87-1.13) 12/24/18 12:31 APTT 28.9 Sec. (24.2-36.6) 12/24/18 12:31 D-Dimer 305.08 ng/mlDDU (0-234) H 12/24/18 Unknown Sodium 143 mmol/L (137-145) 12/25/18 06:50 Potassium 4.4 mmol/L (3.6-5.0) 12/25/18 06:50 Chloride 110.3 mmol/L (98-107) H 12/25/18 06:50 Carbon Dioxide 23 mmol/L (22-30) 12/25/18 06:50 Anion Gap 14 mmol/L 12/25/18 06:50 BUN 31 mg/dL (7-17) H 12/25/18 06:50 Creatinine 2.4 mg/dL (0.7-1.2) H 12/25/18 06:50 Estimated GFR 24 ml/min 12/25/18 06:50 BUN/Creatinine Ratio 13 % 12/25/18 06:50 Glucose 106 mg/dL (65-100) H 12/25/18 06:50 POC Glucose 102 (70-105) 12/25/18 09:11 Hemoglobin A1c 7.4 % (4-6) H 12/24/18 Unknown Calcium 9.6 mg/dL (8.4-10.2) 12/25/18 06:50 Magnesium 2.00 mg/dL (1.7-2.3) 12/24/18 12:31 Total Bilirubin 0.30 mg/dL (0.1-1.2) 12/24/18 12:31 Direct Bilirubin < 0.2 mg/dL (0-0.2) 12/24/18 12:31 Indirect Bilirubin 0.1 mg/dL 12/24/18 12:31 AST 18 units/L (5-40) 12/24/18 12:31 ALT 20 units/L (7-56) 12/24/18 12:31 Alkaline Phosphatase 126 units/L (35-129) 12/24/18 12:31 Total Creatine Kinase 161 units/L (30-135) H 12/24/18 13:31 CK-MB (CK-2) 4.4 ng/mL (0.0-4.0) H 12/24/18 12:31 CK-MB (CK-2) Rel Index 2.7 (0-4) 12/24/18 12:31 Troponin T 0.052 ng/mL (0.00-0.029) H 12/24/18 12:31 Total Protein 7.3 g/dL (6.3-8.2) 12/24/18 12:31 Albumin 3.4 g/dL (3.9-5) L 12/24/18 12:31 Albumin/Globulin Ratio 0.9 % 12/24/18 12:31 Triglycerides 132 mg/dL (2-149) 12/24/18 12:31 Cholesterol 231 mg/dL (50-199) H 12/24/18 12:31 LDL Cholesterol Direct 170 mg/dL (50-130) H 12/24/18 12:31 HDL Cholesterol 63 mg/dL (40-59) H 12/24/18 12:31 Cholesterol/HDL Ratio 3.66 % 12/24/18 12:31 TSH 2.250 mlU/mL (0.270-4.200) 12/24/18 16:09 Free T4 0.89 ng/dL (0.76-1.46) 12/24/18 16:09 Urine Color Yellow (Yellow) 12/24/18 17:55 Urine Turbidity Clear (Clear) 12/24/18 17:55 Urine pH 6.0 (5.0-7.0) 12/24/18 17:55 Ur Specific [place] 1.009 (1.003-1.030) 12/24/18 17:55 Urine Protein >500 mg/dL (Negative) 12/24/18 17:55 Urine Glucose (UA) 150 mg/dL (Negative) 12/24/18 17:55 Urine Ketones Neg mg/dL (Negative) 12/24/18 17:55 Urine Blood Sm (Negative) 12/24/18 17:55 Urine Nitrite Neg (Negative) 12/24/18 17:55 Urine Bilirubin Neg (Negative) 12/24/18 17:55 Urine Urobilinogen < 2.0 mg/dL (<2.0) 12/24/18 17:55 Ur Leukocyte Esterase Neg (Negative) 12/24/18 17:55 Urine WBC (Auto) 2.0 /HPF (0.0-6.0) 12/24/18 17:55 Urine RBC (Auto) 3.0 /HPF (0.0-6.0) 12/24/18 17:55 U Epithel Cells (Auto) < 1.0 /HPF (0-13.0) 12/24/18 17:55 Urine Bacteria (Auto) 1+ /HPF (Negative) 12/24/18 17:55 Urine Mucus Few /HPF 12/24/18 17:55 Urine Creatinine 64.4 mg/dL (0.1-20.0) H 12/24/18 18:08 Urine Sodium 65 mmol/L 12/24/18 18:08 Hepatitis A IgM Ab Non-reactive (NonReactive) 12/24/18 16:09 Hep Bs Antigen Non-reactive (Negative) 12/24/18 16:09 Hep B Core IgM Ab Non-reactive (NonReactive) 12/24/18 16:09 Hepatitis C Antibody Non-reactive (NonReactive) 12/24/18 16:09 Active Medications - Current Medications Current Medications: Generic Name Dose Route Start Last Admin Trade Name Freq PRN Reason Stop Dose Admin Acetaminophen 650 mg 12/24/18 14:51 Tylenol PO Q4H PRN Pain MILD(1-3)/Fever >100.5/VICTORIA Albuterol 2.5 mg 12/24/18 14:51 Proventil IH Q4HRT PRN Shortness Of Breath Amlodipine Besylate 5 mg 12/25/18 10:00 12/25/18 10:20 Norvasc PO 5 mg DAILY ZACARIAS Administration Dextrose 50 ml 12/24/18 14:32 D50w (25gm) Syringe IV PRN PRN Hypoglycemia Insulin Human Lispro 0 unit 12/24/18 16:30 12/25/18 10:19 Humalog SUB-Q Not Given ACHS [facility] Protocol Ondansetron HCl 4 mg 12/24/18 14:51 Zofran IV Q8H PRN Nausea And Vomiting Sodium Chloride 10 ml 12/24/18 22:00 12/25/18 10:20 Sodium Chloride Flush Syringe 10 Ml IV 10 ml BID ZACARIAS Administration Sodium Chloride 10 ml 12/24/18 14:51 Sodium Chloride Flush Syringe 10 Ml IV PRN PRN LINE FLUSH
[2018-12-25] MEDS ORDERED: APRESOLINE IV PRN (11:31)
[2018-12-25] MEDS: NACL 0.45% 1000 ML 1,000 ML IV SCH ×2 (13:01→23:24)
--- NOTE | 2018-12-25 18:52 | Cat Scan Report ---
PROCEDURE: CT CHEST WO CON TECHNIQUE: Axial images were performed from the lung apices to the bases. Multiplanar reformats were performed on the acquisition scanner. Total exam DLP 937.50 mGy-centimeter HISTORY: lung nodule on cxr COMPARISONS: Chest x-ray 12/24/2018 FINDINGS: No lung windows were provided. There is mild hypoventilatory changes most severe in both lung bases with crowding of the vasculature and bronchi. No pulmonary nodule or focal infiltrate is identified. There are small axillary lymph nodes. There is small to moderate pericardial effusion. Heart size is upper limits normal. Calcific coronary artery disease. Trace bilateral pleural effusions. Small mediastinal lymph nodes. Aorta has normal course and caliber with mild atheromatous disease. Imaged upper abdomen demonstrates distended gallbladder with possible dependent sludge and stone. Oth erwise unremarkable. Degenerative spondylitic change of the thoracic spine. Multiple degenerative sclerotic fissural white es of the endplates. Sclerotic appearing T2 vertebral body diffusely. IMPRESSION: Mild to moderate pericardial effusion. Trace bilateral pleural effusions. No focal nodule. Hypoventilatory changes in the lungs without focal infiltrate. Small lymph nodes in the mediastinum, limited without IV contrast ministration. Diffusely sclerotic T2 vertebral body of uncertain etiology. Correlate for any history of primary tristan plasm. Calcific coronary artery disease advanced for patient's gender. Gallstones and sludge.. This document is electronically signed by Gracia Castellon MD., December 25 2018 06:51:04 PM ET
[2018-12-25] MEDS: PROCARDIA XL PO SCH (23:18)
[2018-12-26 06:50] LABS: Calcium 9.8 mg/dL (8.4-10.2)
--- NOTE | 2018-12-26 07:39 | Progress Note ---
Assessment and Plan 1. Acute kidney injury: Likely vasomotor mediated ESEQUIEL superimposed on CKD. Suspect ATN. Continue IV fluids. Renal US pending. Renal function is better. Monitor renal function. Avoid nephrotoxic agents. Meds dosage based on GFR. 2. FEN: Volume depletion, IV fluids. Mild hypercalcemia, 2/2 volume depletion, improved now. 3. Hypertension: Monitor BP. 4. Anemia: Present on admission. Subjective Date of service: 12/26/18 Interval history: Patient was seen and examined at the bedside. Doing well. Objective - General Appearance General appearance: well-developed, well-nourished, appears stated age, obese, other (not in distress) EENT: ATNC, PERRL, mucous membranes moist, hearing intact, vision intact Neck: supple Respiratory: Present: Clear to Ascultation Cardiology: regular, S1S2, no murmurs Gastrointestinal: normoactive bowel sounds, no tenderness, no distended, obese Integumentary: no rash, warm and dry Neurologic: no focal deficit, no asterixis Musculoskeletal: other (no edema) Psychiatric: cooperative - Lab 12/24/18 12:31 12/27/18 05:27 Most recent lab results Calcium 9.8 mg/dL (8.4-10.2) 12/26/18 06:05 Magnesium 2.00 mg/dL (1.7-2.3) 12/24/18 12:31 Urine Creatinine 64.4 mg/dL (0.1-20.0) H 12/24/18 18:08 Urine Sodium 65 mmol/L 12/24/18 18:08 Medications & Allergies - Medications Allergies/Adverse Reactions: Allergies No Known Allergies Allergy (Unverified 06/23/16 14:03) Home Medications: Home Medications Medication Instructions Recorded Confirmed Last Taken Type Insulin Glargine [Lantus] 7 units SQ QHS #1 vial 12/27/18 Unknown Rx NIFEdipine XL [Procardia Xl] 60 mg PO Q12HR #60 tablet 12/27/18 Unknown Rx Active Medications: Generic Name Dose Route Start Last Admin Trade Name Freq PRN Reason Stop Dose Admin Acetaminophen 650 mg 12/24/18 14:51 Tylenol PO Q4H PRN Pain MILD(1-3)/Fever >100.5/VICTORIA Albuterol 2.5 mg 12/24/18 14:51 Proventil IH Q4HRT PRN Shortness Of Breath Dextrose 50 ml 12/24/18 14:32 D50w (25gm) Syringe IV PRN PRN Hypoglycemia Enoxaparin Sodium 30 mg 12/26/18 10:00 Lovenox SUB-Q QDAY ZACARIAS Hydralazine HCl 10 mg 12/25/18 11:31 Apresoline IV Q4HR PRN BP >160/100 Sodium Chloride 1,000 mls @ 125 mls/hr 12/25/18 12:00 12/25/18 23:24 Nacl 0.45% 1000 Ml IV 125 mls/hr DIRECT ZACARIAS Administration Insulin Human Lispro 0 unit 12/24/18 16:30 12/25/18 13:00 Humalog SUB-Q 2 unit ACHS ZACARIAS Administration Protocol Nifedipine 60 mg 12/25/18 22:00 12/25/18 23:18 Procardia Xl PO 60 mg Q12HR ZACARIAS Administration Ondansetron HCl 4 mg 12/24/18 14:51 Zofran IV Q8H PRN Nausea And Vomiting Sodium Chloride 10 ml 12/24/18 22:00 12/25/18 23:18 Sodium Chloride Flush Syringe 10 Ml IV 10 ml BID ZACARIAS Administration Sodium Chloride 10 ml 12/24/18 14:51 Sodium Chloride Flush Syringe 10 Ml IV PRN PRN LINE FLUSH
[2018-12-26] MEDS: HumaLOG SUB-Q SCH ×5 (08:00→23:20)
--- NOTE | 2018-12-26 09:10 | Progress Note ---
Assessment and Plan Assessment and plan: 68-year-old woman who presents after feeling hot and nauseus and having an episode of syncope. It occurred when she was walking around in a store. Past medical history; hypertension, diabetes, dementia, peripheral vascular disease Labs show elevated creatinine, elevated d-dimer VQ scan is low probability for pulmonary Chest x-ray shows ill-defined nodular density measuring 2 cm in the lower thoracic vertebral body, maybe a osteophytes versus lung nodule CT head shows large ill-defined area of low attenuation in left temporoparietal region which is most likely chronic ischemia, less likely neoplasm CT chest does not show any infiltrates or nodules MRI brain is done, report is pending Diagnoses Transient autonomic imbalance Dehydration Hypertension Diabetes , a1c 7.4 abnormal chest x-ray, Lung nodule ruled out Abnormal CT head, chronic ischemia versus neoplasm Acute kidney injury likely due to vasomotor nephropathy, upon CKD htn urgency Plan Syncope/abnormal CT head: , neurology input appreciated, awaiting MRI brain report -Acute kidney injury; continue IV fluids, renal function is improving -CT chest negative for any nodules or infiltrates -Sliding-scale insulin for diabetes, optimize blood pressure medications DVT prophylaxis with Lovenox History Interval history: Review of systems Constitutional: No fevers, no malaise, no joint pains CVS: No chest pain, no orthopnea, no dyspnea on exertion, no pedal edema GI: No abdominal pain, no diarrhea, no vomiting, no constipation Respiratory: No shortness of breath, no wheezing, no coughing Hospitalist Physical - Physical exam Narrative exam: General.: Appears well, no distress, nontoxic HEENT: Moist mucous membranes, extraocular muscles intact, no lymphadenopathy Neck: supple Cardiac: S1-S2 heard Lungs: clear to auscultation bilaterally Abdomen: soft , nontender, nondistended, bowel sounds positive Extremities: no edema clubbing or cyanosis Skin: no rash or lesions Neurologic: no gross focal deficits Psych: calm, and cooperative - Constitutional Vitals: Temp Pulse Resp BP Pulse Ox 98.3 F 69 20 174/63 96 12/25/18 19:37 12/25/18 19:37 12/25/18 19:37 12/25/18 19:37 12/25/18 19:37 General appearance: Present: mild distress Results - Labs CBC & Chem 7: 12/24/18 12:31 12/26/18 06:05 Labs: Laboratory Last Values WBC 5.6 K/mm3 (4.5-11.0) 12/24/18 12:31 RBC 3.60 M/mm3 (3.65-5.03) L 12/24/18 12:31 Hgb 10.0 gm/dl (10.1-14.3) L 12/24/18 12:31 Hct 30.8 % (30.3-42.9) 12/24/18 12:31 MCV 86 fl (79-97) 12/24/18 12:31 MCH 28 pg (28-32) 12/24/18 12:31 MCHC 33 % (30-34) 12/24/18 12:31 RDW 15.0 % (13.2-15.2) 12/24/18 12:31 Plt Count 261 K/mm3 (140-440) 12/24/18 12:31 Lymph % (Auto) 26.5 % (13.4-35.0) 12/24/18 12:31 [place] % (Auto) 6.7 % (0.0-7.3) 12/24/18 12:31 Eos % (Auto) 2.0 % (0.0-4.3) 12/24/18 12:31 Baso % (Auto) 1.1 % (0.0-1.8) 12/24/18 12: Lymph # 1.5 K/mm3 (1.2-5.4) 12/24/18 12: [place] # 0.4 K/mm3 (0.0-0.8) 12/24/18 12: Eos # 0.1 K/mm3 (0.0-0.4) 12/24/18 12:31 Baso # 0.1 K/mm3 (0.0-0.1) 12/24/18 12: Seg Neutrophils % 63.7 % (40.0-70.0) 12/24/18 12: Seg Neutrophils # 3.5 K/mm3 (1.8-7.7) 12/24/18 12:31 PT 13.1 Sec. (12.2-14.9) 12/24/18 12:31 INR 0.94 (0.87-1.13) 12/24/18 12:31 APTT 28.9 Sec. (24.2-36.6) 12/24/18 12:31 D-Dimer 305.08 ng/mlDDU (0-234) H 12/24/18 Unknown Sodium 142 mmol/L (137-145) 12/26/18 06:05 Potassium 4.0 mmol/L (3.6-5.0) 12/26/18 06:05 Chloride 109.8 mmol/L (98-107) H 12/26/18 06:05 Carbon Dioxide 22 mmol/L (22-30) 12/26/18 06:05 Anion Gap 14 mmol/L 12/26/18 06:05 BUN 27 mg/dL (7-17) H 12/26/18 06:05 Creatinine 2.3 mg/dL (0.7-1.2) H 12/26/18 06:05 Estimated GFR 25 ml/min 12/26/18 06:05 BUN/Creatinine Ratio 12 % 12/26/18 06:05 Glucose 145 mg/dL (65-100) H 12/26/18 06:05 POC Glucose 124 (70-105) H 12/26/18 07:35 Hemoglobin A1c 7.4 % (4-6) H 12/24/18 Unknown Calcium 9.8 mg/dL (8.4-10.2) 12/26/18 06:05 Magnesium 2.00 mg/dL (1.7-2.3) 12/24/18 12:31 Total Bilirubin 0.30 mg/dL (0.1-1.2) 12/24/18 12:31 Direct Bilirubin < 0.2 mg/dL (0-0.2) 12/24/18 12:31 Indirect Bilirubin 0.1 mg/dL 12/24/18 12:31 AST 18 units/L (5-40) 12/24/18 12:31 ALT 20 units/L (7-56) 12/24/18 12:31 Alkaline Phosphatase 126 units/L (35-129) 12/24/18 12:31 Total Creatine Kinase 161 units/L (30-135) H 12/24/18 13:31 CK-MB (CK-2) 4.4 ng/mL (0.0-4.0) H 12/24/18 12:31 CK-MB (CK-2) Rel Index 2.7 (0-4) 12/24/18 12:31 Troponin T 0.052 ng/mL (0.00-0.029) H 12/24/18 12:31 Total Protein 7.3 g/dL (6.3-8.2) 12/24/18 12:31 Albumin 3.4 g/dL (3.9-5) L 12/24/18 12:31 Albumin/Globulin Ratio 0.9 % 12/24/18 12:31 Triglycerides 132 mg/dL (2-149) 12/24/18 12:31 Cholesterol 231 mg/dL (50-199) H 12/24/18 12:31 LDL Cholesterol Direct 170 mg/dL (50-130) H 12/24/18 12:31 HDL Cholesterol 63 mg/dL (40-59) H 12/24/18 12:31 Cholesterol/HDL Ratio 3.66 % 12/24/18 12:31 TSH 2.250 mlU/mL (0.270-4.200) 12/24/18 16:09 Free T4 0.89 ng/dL (0.76-1.46) 12/24/18 16:09 Urine Color Yellow (Yellow) 12/24/18 17:55 Urine Turbidity Clear (Clear) 12/24/18 17:55 Urine pH 6.0 (5.0-7.0) 12/24/18 17:55 Ur Specific [place] 1.009 (1.003-1.030) 12/24/18 17:55 Urine Protein >500 mg/dL (Negative) 12/24/18 17:55 Urine Glucose (UA) 150 mg/dL (Negative) 12/24/18 17:55 Urine Ketones Neg mg/dL (Negative) 12/24/18 17:55 Urine Blood Sm (Negative) 12/24/18 17:55 Urine Nitrite Neg (Negative) 12/24/18 17:55 Urine Bilirubin Neg (Negative) 12/24/18 17:55 Urine Urobilinogen < 2.0 mg/dL (<2.0) 12/24/18 17:55 Ur Leukocyte Esterase Neg (Negative) 12/24/18 17:55 Urine WBC (Auto) 2.0 /HPF (0.0-6.0) 12/24/18 17:55 Urine RBC (Auto) 3.0 /HPF (0.0-6.0) 12/24/18 17:55 U Epithel Cells (Auto) < 1.0 /HPF (0-13.0) 12/24/18 17:55 Urine Bacteria (Auto) 1+ /HPF (Negative) 12/24/18 17:55 Urine Mucus Few /HPF 12/24/18 17:55 Urine Creatinine 64.4 mg/dL (0.1-20.0) H 12/24/18 18:08 Urine Sodium 65 mmol/L 12/24/18 18:08 Hepatitis A IgM Ab Non-reactive (NonReactive) 12/24/18 16:09 Hep Bs Antigen Non-reactive (Negative) 12/24/18 16:09 Hep B Core IgM Ab Non-reactive (NonReactive) 12/24/18 16:09 Hepatitis C Antibody Non-reactive (NonReactive) 12/24/18 16:09 Active Medications - Current Medications Current Medications: Generic Name Dose Route Start Last Admin Trade Name Freq PRN Reason Stop Dose Admin Acetaminophen 650 mg 12/24/18 14:51 Tylenol PO Q4H PRN Pain MILD(1-3)/Fever >100.5/VICTORIA Albuterol 2.5 mg 12/24/18 14:51 Proventil IH Q4HRT PRN Shortness Of Breath Dextrose 50 ml 12/24/18 14:32 D50w (25gm) Syringe IV PRN PRN Hypoglycemia Enoxaparin Sodium 30 mg 12/26/18 10:00 Lovenox SUB-Q QDAY ZACARIAS Hydralazine HCl 10 mg 12/25/18 11:31 Apresoline IV Q4HR PRN BP >160/100 Sodium Chloride 1,000 mls @ 125 mls/hr 12/25/18 12:00 12/25/18 23:24 Nacl 0.45% 1000 Ml IV 125 mls/hr DIRECT ZACARIAS Administration Insulin Human Lispro 0 unit 12/24/18 16:30 12/25/18 13:00 Humalog SUB-Q 2 unit ACHS ZACARIAS Administration Protocol Nifedipine 60 mg 12/25/18 22:00 12/25/18 23:18 Procardia Xl PO 60 mg Q12HR ZACARIAS Administration Ondansetron HCl 4 mg 12/24/18 14:51 Zofran IV Q8H PRN Nausea And Vomiting Sodium Chloride 10 ml 12/24/18 22:00 12/25/18 23:18 Sodium Chloride Flush Syringe 10 Ml IV 10 ml BID ZACARIAS Administration Sodium Chloride 10 ml 12/24/18 14:51 Sodium Chloride Flush Syringe 10 Ml IV PRN PRN LINE FLUSH
[2018-12-26] MEDS: PROCARDIA XL PO SCH ×2 (09:48→21:17)
[2018-12-26] MEDS: LOVENOX SUB-Q SCH (09:48)
[2018-12-26] MEDS: SODIUM CHLORIDE FLUSH SYRINGE 10 ML IV SCH ×2 (09:49→21:17)
--- NOTE | 2018-12-26 09:50 | Magnetic Resonance Report ---
PROCEDURE: MR BRAIN WO CON TECHNIQUE: Multisequence, multiplanar MR imaging is obtained through the brain without contrast HISTORY: brain lesion COMPARISONS: Head CT 12/24/2018 FINDINGS: No abnormal susceptibility artifact in the brain. A small amount of cortical and linear subcortical r estricted diffusion is present in the superior left parietal occipital region on axial series 4, imag es 25-27. Subcortical volume loss/encephalomalacia with adjacent increased T2-weighted/FLAIR signal o n axial series 6 and series 7, images 17-21. No focal mass or mass effect is identified. Mild ex vacu o dilatation of the left occipital horn seen on axial series 7, image 13. Underlying mild parenchymal volume loss. Linear periventricular T2/FLAIR signal on series 7, image 15. There are no other areas of restricted diffusion. Normal spherical shape of the globe status post cat aract extraction. No significant abnormality within the paranasal sinuses or mastoid air cells. 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 Cortical necrosis and possible petech ial hemorrhage may be present with small areas of superimposed acute ischemia. No focal mass is prese nt. Underlying mild parenchymal volume loss and chronic sequela of microvascular angiopathy. Notification initiated via [employer] sales support technician following this dictation on 12/26/2018. This document is electronically signed by Will Houston MD., December 26 2018 09:48:06 AM ET
[2018-12-26] MEDS: NACL 0.45% 1000 ML 1,000 ML IV SCH (18:11)
[2018-12-27 01:42] VITALS: BP 139/52
[2018-12-27] MEDS: NACL 0.45% 1000 ML 1,000 ML IV SCH (01:44)
[2018-12-27 06:28] LABS: Calcium 9.6 mg/dL (8.4-10.2)
[2018-12-27] MEDS: HumaLOG SUB-Q SCH ×2 (08:00→12:09)
--- NOTE | 2018-12-27 08:09 | Discharge Summary ---
Providers - Providers Date of Admission: 12/24/18 14:51 Attending physician: LISY WASSERMAN MD 12/24/18 14:56 Consult to Physician [CONS] Routine Comment: called office/[facility] Consulting Provider: SIENNA GU Physician Instructions: Reason For Exam: ARF 12/24/18 14:59 Consult to Physician [CONS] Routine Comment: called [facility]/ [facility] Consulting Provider: EMILIA DELGADILLO Physician Instructions: Reason For Exam: Brain attenuation on CT Scan 12/25/18 08:03 Physical Therapy Evaluation and Treat [CONS] Routine Comment: Reason For Exam: weakness 12/26/18 11:14 Consult to Dietitian/Nutrition [CONS] Routine Physician Instructions: Reason For Exam: Reason for Consult: Malnutrition Primary care physician: [employer]TER HELPER Hospitalization Condition: Stable Hospital course: 68-year-old woman who presents after feeling hot and nauseus and having an episode of syncope. It occurred when she was walking around in a store. Past medical history; hypertension, diabetes, dementia, peripheral vascular disease Labs show elevated creatinine, elevated d-dimer VQ scan is low probability for pulmonary Chest x-ray shows ill-defined nodular density measuring 2 cm in the lower thoracic vertebral body, maybe a osteophytes versus lung nodule CT head shows large ill-defined area of low attenuation in left temporoparietal region which is most likely chronic ischemia, less likely neoplasm CT chest does not show any infiltrates or nodules MRI brain is done, report is pending Diagnoses Transient autonomic imbalance Dehydration Hypertension Diabetes , a1c 7.4 abnormal chest x-ray, Lung nodule ruled out Abnormal CT head, chronic ischemia versus neoplasm Acute kidney injury likely due to vasomotor nephropathy, upon CKD htn urgency Plan Syncope/abnormal CT head: , neurology input appreciated, MRI brain is normal. 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 She has had improvement of kidney function following IV fluids -CT chest negative for any nodules or infiltrates -Insulins optimized she was in hospital, she received dietitian consult. She was counseled about lifestyle modification including diet and exercise, time spent greater than 30 minutes -Bp meds were optimized DVT prophylaxis with Lovenox Disposition: TO HOME OR SELFCARE Time spent for discharge: 33 mins Core Measure Documentation - Palliative Care Palliative Care/ Comfort Measures: Not Applicable - Core Measures Any of the following diagnoses?: none Exam - Constitutional Vitals: Temp Pulse Resp BP Pulse Ox 98.8 F 72 20 139/52 97 12/27/18 01:39 12/27/18 01:39 12/27/18 01:39 12/27/18 01:39 12/27/18 01:39 General appearance: Present: no acute distress, well-nourished - EENT Eyes: Present: PERRL ENT: hearing intact, clear oral mucosa - Neck Neck: Present: supple, normal ROM - Respiratory Respiratory effort: normal Respiratory: bilateral: CTA - Cardiovascular Heart Sounds: Present: S1 & S2. Absent: rub, click - Extremities Extremities: pulses symmetrical, No edema Peripheral Pulses: within normal limits - Abdominal General gastrointestinal: Present: soft, non-tender, non-distended, normal bowel sounds Female genitourinary: Present: normal - Integumentary Integumentary: Present: clear, warm, dry - Musculoskeletal Musculoskeletal: gait normal, strength equal bilaterally - Psychiatric Psychiatric: appropriate mood/affect, intact judgment & insight - Neurologic Neurologic: CNII-XII intact, moves all extremities Plan Follow up with: PRIMARY CAREMD [Primary Care Provider] - 3-5 Days SIENNA GU MD [Staff Physician] - 7 Days Prescriptions: Insulin Glargine [Lantus] 7 units SQ QHS #1 vial NIFEdipine XL [Procardia Xl] 60 mg PO Q12HR #60 tablet
[2018-12-27] MEDS: LOVENOX SUB-Q SCH (09:23)
[2018-12-27] MEDS: PROCARDIA XL PO SCH (09:27)
[2018-12-27] MEDS: SODIUM CHLORIDE FLUSH SYRINGE 10 ML IV SCH (09:27)
--- NOTE | 2018-12-27 10:28 | Progress Note ---
Assessment and Plan 1. Acute kidney injury: Likely vasomotor mediated ESEQUIEL superimposed on CKD. Renal US pending. Renal function is slightly better. Creatinine level is stable. Suspect CKD stage 4. Monitor renal function. Avoid nephrotoxic agents. Meds dosage based on GFR. 2. FEN: Volume depletion, improved. Mild hypercalcemia, 2/2 volume depletion, improved now. 3. Hypertension: Monitor BP. 4. Anemia: Present on admission. F/u with me in 1-2 weeks. Subjective Date of service: 12/27/18 Interval history: Patient was seen and examined at the bedside. Doing well. Objective - Vital Signs Vital signs: Vital Signs - 12hr 12/27/18 01:39 Temperature 98.8 F Pulse Rate 72 Respiratory 20 Rate Blood Pressure 139/52 O2 Sat by Pulse 97 Oximetry - General Appearance General appearance: well-developed, well-nourished, appears stated age, obese, other (not in distress) EENT: ATNC, PERRL, mucous membranes moist, hearing intact, vision intact Neck: supple Respiratory: Present: Clear to Ascultation Cardiology: regular, S1S2, no murmurs Gastrointestinal: normoactive bowel sounds, no tenderness, no distended Integumentary: no rash, warm and dry Neurologic: no focal deficit, no asterixis Musculoskeletal: other (no edema) - Lab 12/24/18 12:31 12/27/18 05:27 Most recent lab results Calcium 9.6 mg/dL (8.4-10.2) 12/27/18 05:27 Magnesium 2.00 mg/dL (1.7-2.3) 12/24/18 12:31 Urine Creatinine 64.4 mg/dL (0.1-20.0) H 12/24/18 18:08 Urine Sodium 65 mmol/L 12/24/18 18:08 Medications & Allergies - Medications Allergies/Adverse Reactions: Allergies No Known Allergies Allergy (Unverified 06/23/16 14:03) Home Medications: Home Medications Medication Instructions Recorded Confirmed Last Taken Type Insulin Glargine [Lantus] 7 units SQ QHS #1 vial 12/27/18 Unknown Rx NIFEdipine XL [Procardia Xl] 60 mg PO Q12HR #60 tablet 12/27/18 Unknown Rx Active Medications: Generic Name Dose Route Start Last Admin Trade Name Freq PRN Reason Stop Dose Admin Acetaminophen 650 mg 12/24/18 14:51 Tylenol PO Q4H PRN Pain MILD(1-3)/Fever >100.5/VICTORIA Albuterol 2.5 mg 12/24/18 14:51 Proventil IH Q4HRT PRN Shortness Of Breath Dextrose 50 ml 12/24/18 14:32 D50w (25gm) Syringe IV PRN PRN Hypoglycemia Enoxaparin Sodium 30 mg 12/26/18 10:00 12/27/18 09:23 Lovenox SUB-Q 30 mg QDAY ZACARIAS Administration Hydralazine HCl 10 mg 12/25/18 11:31 Apresoline IV Q4HR PRN BP >160/100 Sodium Chloride 1,000 mls @ 125 mls/hr 12/25/18 12:00 12/27/18 01:44 Nacl 0.45% 1000 Ml IV 125 mls/hr DIRECT ZACARIAS Administration Insulin Human Lispro 0 unit 12/24/18 16:30 12/27/18 08:00 Humalog SUB-Q Not Given ACHS ZACARIAS Protocol Nifedipine 60 mg 12/25/18 22:00 12/27/18 09:27 Procardia Xl PO 60 mg Q12HR ZACARIAS Administration Ondansetron HCl 4 mg 12/24/18 14:51 Zofran IV Q8H PRN Nausea And Vomiting Sodium Chloride 10 ml 12/24/18 22:00 12/27/18 09:27 Sodium Chloride Flush Syringe 10 Ml IV 10 ml BID ZACARIAS Administration Sodium Chloride 10 ml 12/24/18 14:51 Sodium Chloride Flush Syringe 10 Ml IV PRN PRN LINE FLUSH
--- NOTE | 2018-12-28 09:21 | Ultrasound Report ---
Renal ultrasound: Renal failure. Transabdominal imaging of the right kidney demonstrates a slightly lobulated contour with a length of 12.3 cm. The left renal contour is also lobulated with a length of 12.7 cm. Both kidneys have a slightly increased echogenic pattern. No evidence of parenchymal narrowing. No evidence of mass and no obstructive uropathy nor calculus noted. Imaging of the urinary bladder is grossly normal. Impressions: The mild increased echogenicity is consistent with medical renal disease.
== END 2018-12-27 12:15 | disposition home or self-care (01) | DRG 73 ==
LOC: ED 12:10 → 2B-ACE 14:51
PROVIDERS: ADMIT Internal Medicine; ATTEND Internal Medicine
DX: G90.8 Other disorders of autonomic nervous system (principal); N17.0 Acute kidney failure with tubular necrosis; E87.2 Acidosis; I16.0 Hypertensive urgency; E78.5 Hyperlipidemia, unspecified; E86.9 Volume depletion, unspecified; E83.52 Hypercalcemia; D64.9 Anemia, unspecified; E86.0 Dehydration; I12.9 Hypertensive chronic kidney disease with stage 1 through stage 4 chronic kidney disease, or unspecified chronic kidney disease; N18.9 Chronic kidney disease, unspecified; E11.22 Type 2 diabetes mellitus with diabetic chronic kidney disease; E11.51 Type 2 diabetes mellitus with diabetic peripheral angiopathy without gangrene; F03.90 Unspecified dementia, unspecified severity, without behavioral disturbance, psychotic disturbance, mood disturbance, and anxiety; Z79.899 Other long term (current) drug therapy
CPT/HCPCS: 36415; 70450; 70551; 71046; 71250; 76770; 78582; 80048; 80061; 80074; 80076; 81001; 82550; 82553; 82570; 82962; 83036; 83735; 84300; 84439; 84443; 84484; 85025; 85379; 85610; 85730; 87086; 93005; 93010; G0378; A9540; A9558; J1650; J1815; J7030; J7040

== ENCOUNTER 2019-01-22 11:19 | Emergency (ER) | payer MEDICARE ==
--- NOTE | 2019-01-22 11:38 | Emergency Department Report ---
Blank Doc - Documentation Documentation: 68 Y/0 female referred to ER by her Nephrology since her BP was elevated in his office. Hx/o of HTN. Missed 1 dose of blood pressure medication. Currently on Procardia.
[2019-01-22] MEDS ORDERED: APRESOLINE IV ONE ×2 (11:48→13:23)
--- NOTE | 2019-01-22 11:51 | Emergency Department Report ---
HPI - General Chief Complaint: High BP Time Seen by Provider: 01/22/19 11:45 - HPI HPI: 68-year-old female presents to the emergency department, brought in by her daughter, from her nephrologists office secondary to very elevated blood pressure. The patient takes Procardia but did not take her morning dose today. She has a past medical history of end-stage renal disease not on dialysis, hypertension and diabetes. She denies any headache, vision change, chest pain, shortness of breath or any physical complaints. She is unable to tell me the name of her bone drier whom she saw today. ED Past Medical Hx - Past Medical History Previous Medical History?: Yes Hx Hypertension: Yes Hx Heart Attack/AMI: No Hx Diabetes: Yes Hx Liver Disease: No Hx Renal Disease: Yes - Surgical History Past Surgical History?: No - Social History Smoking Status: Never Smoker Substance Use Type: None - Medications Home Medications: Home Medications Medication Instructions Recorded Confirmed Last Taken Type Insulin Glargine [Lantus] 7 units SQ QHS #1 vial 12/27/18 Unknown Rx NIFEdipine XL [Procardia Xl] 60 mg PO Q12HR #60 tablet 12/27/18 Unknown Rx ED Review of Systems ROS: Stated complaint: HBP Other details as noted in HPI Comment: All other systems reviewed and negative Constitutional: denies: chills, fever Eyes: denies: eye pain, vision change ENT: denies: ear pain, throat pain Respiratory: denies: cough, shortness of breath Cardiovascular: denies: chest pain, palpitations Gastrointestinal: denies: abdominal pain, vomiting Genitourinary: denies: dysuria, discharge Musculoskeletal: denies: back pain, arthralgia Skin: denies: rash, lesions Neurological: denies: headache, weakness Physical Exam - Physical Exam Vital Signs: Vital Signs 01/22/19 11:31 Temperature 97.8 F Pulse Rate 66 Respiratory 18 Rate Blood Pressure 215/91 O2 Sat by Pulse 99 Oximetry Physical Exam: GENERAL: The patient is well-developed well-nourished. HENT: Normocephalic. Atraumatic. Patient has moist mucous membranes. EYES: Extraocular motions are intact. NECK: Supple. Trachea is midline. CHEST/LUNGS: Clear to auscultation. There is no respiratory distress noted. HEART/CARDIOVASCULAR: Regular. There is no tachycardia. There is no murmur. ABDOMEN: Abdomen is soft, nontender. Patient has normal bowel sounds. There is no abdominal distention. SKIN: Skin is warm and dry. NEURO: The patient is awake, alert, and cooperative. The patient has no focal neurologic deficits. The patient has normal speech. MUSCULOSKELETAL: There is no tenderness or deformity. There is no evidence of acute injury. ED Course Vital Signs 01/22/19 11:31 Temperature 97.8 F Pulse Rate 66 Respiratory 18 Rate Blood Pressure 215/91 O2 Sat by Pulse 99 Oximetry ED Medical Decision Making - Lab Data Result diagrams: 01/22/19 11:49 01/22/19 11:49 - Medical Decision Making Patient was sent in by Dr. Gu after she was found to have a blood pressure of about 240 systolic during a follow-up in his office. The patient has no physical complaints. Labs show some chronic kidney disease but otherwise are unremarkable. She was given 2 doses of IV blood pressure medication, hydralazine, and her blood pressure came down to a much more reasonable level. I spoke with her bone drier and updated him on the vitals and labs and he agrees that the patient appears safe for discharge home at this time. He suggested that she take her medications as prescribed but no new medications or orders have been added. She will return to the ER with any worsening of her symptoms or any acute distress. Critical Care Time: No Critical care attestation.: If time is entered above; I have spent that time in minutes in the direct care of this critically ill patient, excluding procedure time. ED Disposition Clinical Impression: Asymptomatic hypertensive urgency CKD (chronic kidney disease) Qualifiers: Chronic kidney disease stage: unspecified stage Qualified Code(s): N18.9 - Chronic kidney disease, unspecified Disposition: - TO HOME OR SELFCARE Is pt being admited?: No Condition: Stable Instructions: Chronic Kidney Disease (ED), Hypertension (ED) Additional Instructions: Please follow-up with your primary care physician and her bone drier. Make sure to take all your medications as prescribed. Return to the emergency Department with any worsening of your symptoms or any acute distress. Referrals: SIENNA GU MD [Staff Physician] - 2-3 Days Time of Disposition: 15:03
[2019-01-22 12:19] LABS: Basophils # (Auto) 0.1 K/mm3 (0.0-0.1); Basophils % (Auto) 1.9 % (0.0-1.8); Eosinophils # (Auto) 0.1 K/mm3 (0.0-0.4); Eosinophils % (Auto) 2.4 % (0.0-4.3); Hematocrit 33.1 % (30.3-42.9); Hemoglobin 10.8 gm/dl (10.1-14.3); Lymphocytes # (Auto) 1.8 K/mm3 (1.2-5.4); Lymphocytes % (Auto) 30.1 % (13.4-35.0); Mean Corpuscular HGB Conc 33 % (30-34); Mean Corpuscular Volume 87 fl (79-97); Monocytes # (Auto) 0.5 K/mm3 (0.0-0.8); Monocytes % (Auto) 8.6 % (0.0-7.3); Platelet Count 282 K/mm3 (140-440)
[2019-01-22 12:38] LABS: Albumin 3.6 g/dL (3.9-5)
[2019-01-22 13:26] LABS: Bacteria,Urine 1+ /HPF (Negative); Bilirubin,Urine NEG (Negative); Blood,Urine SM (Negative); Color,Urine Yellow (Yellow); Urobilinogen,Urine < 2.0 mg/dL (<2.0)
[2019-01-22 13:28] LABS: Protein,Urine >500 mg/dL (Negative)
[2019-01-22 17:55] VITALS: BP 117/64
== END 2019-01-22 15:28 | disposition home or self-care (01) ==
LOC: ED 11:19
DX: E11.22 Type 2 diabetes mellitus with diabetic chronic kidney disease (principal); I12.9 Hypertensive chronic kidney disease with stage 1 through stage 4 chronic kidney disease, or unspecified chronic kidney disease; N18.9 Chronic kidney disease, unspecified
CPT/HCPCS: 36415; 80053; 81001; 82962; 85025; 96374; 96376; 99284; J0360

== ENCOUNTER 2019-03-29 11:52 | Inpatient (IN) | payer MEDICARE ==
--- NOTE | 2019-03-29 12:39 | Emergency Department Report ---
ED General Adult HPI - General Chief complaint: Syncope Stated complaint: OFF BALANCE Time Seen by Provider: 03/29/19 12:20 Source: patient, family, RN notes reviewed Mode of arrival: Wheelchair Limitations: Other (patient is demented. Patient is a poor historian) - History of Present Illness Initial comments: This is a 68-year-old female. Patient is known to this provider previously. The patient has no complaints. History is obtained entirely from the patient's youngest daughter. Primary care Dr.: Flora Flores, [facility] Neurology: Dr. Thais Balbuena; [phone] Nephrology: Dr. Som beard Past medical history includes dementia, renal insufficiency, diabetes, hypertension, abnormal CT scan of the brain in the past, had MRI in the past at this hospital, which suggested left occipital volume loss likely corresponding to prior infarct, cortical necrosis, and possible petechial hemorrhage, with superimposed ischemia. Does not carry a formal diagnosis of epilepsy or seizures, and does not take any antiepileptic drug medications. As per youngest daughter, who is currently accompanying the patient, patient's eldest daughter is the healthcare power of managing attorney, and advanced directives and goals of care have not been clarified. This is a 68-year-old female who presents to the ER with daughter for complaint of weakness, frequent falls, frequently loosing consciousness and passing out. Her latest episode of loss of consciousness was today, in the waiting room, apparently, the patient had an unwitnessed nontraumatic convulsive event, witnessed only by her youngest daughter, which was described as "I think it looks like a seizure." This has not happened to the patient in the past. No DVT or pulmonary embolus risk factors. Patient denies physical pain at this time. Patient indicates no exacerbating or relieving factors that she is aware of. Was evaluated for undifferentiated syncope at this hospital in December 2018, and had a low probability nuclear medicine study. The patient's youngest daughter is not sure if the patient started any new or different medications. The patient is also not certain at this time. -: Sudden Severity scale (0 -10): 7 Consistency: intermittent Improves with: none Worsens with: none - Related Data Previous Rx's Medication Instructions Recorded Last Taken Type Insulin Glargine [Lantus] 7 units SQ QHS #1 vial 12/27/18 Unknown Rx NIFEdipine XL [Procardia Xl] 60 mg PO Q12HR #60 tablet 12/27/18 Unknown Rx Allergies Allergy/AdvReac Type Severity Reaction Status Date / Time No Known Allergies Allergy Unverified 06/23/16 14:03 ED Review of Systems ROS: Stated complaint: OFF BALANCE Other details as noted in HPI Constitutional: denies: fever Eyes: denies: eye discharge ENT: denies: epistaxis Respiratory: denies: cough Cardiovascular: syncope Gastrointestinal: denies: abdominal pain, hematemesis, melena, hematochezia Genitourinary: denies: dysuria Musculoskeletal: denies: back pain Neurological: weakness, confusion Psychiatric: denies: anxiety Hematological/Lymphatic: denies: easy bleeding ED Past Medical Hx - Past Medical History Previous Medical History?: Yes Hx Hypertension: Yes Hx Heart Attack/AMI: No Hx Diabetes: Yes Hx Liver Disease: No Hx Renal Disease: Yes Additional medical history: dementia - Social History Smoking Status: Never Smoker Substance Use Type: None - Medications Home Medications: Home Medications Medication Instructions Recorded Confirmed Last Taken Type Insulin Glargine [Lantus] 7 units SQ QHS #1 vial 12/27/18 Unknown Rx NIFEdipine XL [Procardia Xl] 60 mg PO Q12HR #60 tablet 12/27/18 Unknown Rx ED Physical Exam - General Limitations: Altered Mental Status General appearance: alert, in no apparent distress - Head Head exam: Present: atraumatic, normocephalic - Eye Eye exam: Present: normal appearance (right pupil demonstrates evidence of old cataract surgery), EOMI, other (visual acuity intact to finger counting, color perception, reading at a close distance). Absent: nystagmus - ENT ENT exam: Present: normal exam, normal orophraynx, mucous membranes moist, normal external ear exam - Neck Neck exam: Present: normal inspection, full ROM. Absent: tenderness, meningismus - Respiratory Respiratory exam: Present: normal lung sounds bilaterally. Absent: respiratory distress - Cardiovascular Cardiovascular Exam: Present: regular rate, normal rhythm, normal heart sounds. Absent: bradycardia, tachycardia, irregular rhythm, systolic murmur, diastolic murmur, rubs, gallop - GI/Abdominal GI/Abdominal exam: Present: soft. Absent: distended, tenderness, guarding, rebound, rigid, pulsatile mass - Rectal Rectal exam: Present: normal inspection, normal rectal tone, heme (-) stool, other (chaperoned by ER product engineer Darryl De Leon) - Extremities Exam Extremities exam: Present: normal inspection, full ROM, other (2+ pulses noted in the bilateral upper, lower extremities. Compartments soft. No long bony tenderness. The pelvis is stable.). Absent: calf tenderness - Back Exam Back exam: Present: normal inspection, full ROM. Absent: tenderness, CVA tenderness (R), CVA tenderness (L), paraspinal tenderness, vertebral tenderness - Neurological Exam Neurological exam: Present: alert, other (Extraocular movements intact. Tongue midline. No facial droop. Facial sensation intact to light touch in the V1, V2, V3 distribution bilaterally. 5 and 5 strength in 4 extremities.. Sensation is intact to light touch in 4 extremities.). Absent: motor sensory deficit - Psychiatric Psychiatric exam: Present: normal affect, normal mood - Skin Skin exam: Present: warm, dry, intact, normal color. Absent: rash ED Course Vital Signs 03/29/19 03/29/19 03/29/19 12:19 12:20 13:00 Temperature 97.9 F Pulse Rate 62 63 Respiratory 13 12 17 Rate Blood Pressure 169/83 149/78 Blood Pressure 169/83 [Right] O2 Sat by Pulse 98 97 99 Oximetry 03/29/19 14:00 Temperature Pulse Rate Respiratory Rate Blood Pressure 212/85 Blood Pressure [Right] O2 Sat by Pulse 100 Oximetry - Reevaluation(s) Reevaluation #1: 03/29/19 13:06 Differential diagnosis, including but not limited to: Orthostasis, vagal event, structural cardiac disease, TIA, focal seizure, dementia, pneumonia, urinary tract infection, pulmonary embolism, acute coronary syndrome Assessment and plan: 68-year-old female, not tachycardic, not hypoxic, no endors ed pulmonary embolism or DVT risk factors, low risk by well's criteria, with episodes of unresponsiveness, loss of consciousness, question syncope, headache and loss of event today. NIH score chronically at 1 secondary to chronic confusion, patient not a TPA candidate as she has a low NIH score, and her NIH exam today is unchanged from her prior examination. Her history and physical are not consistent with a large vessel occlusion. Patient is not tachycardic, she is not hypoxic. Patient will be evaluated for pneumonia, urinary tract infection, pulmonary embolism. A noncontrast CT scan of the brain is pending at this time. Consulted stroke neurology, Dr. Stiles, we awaiting his recommendations. Reevaluation #2: 03/29/19 14:30 CT scan of the brain negative for acute disease. CT scan of the cervical spine negative for acute disease. X-ray of the chest negative for acute disease. Nuclear medicine study is pending interpretation at this time. Reevaluation #3: 03/29/19 14:31 Elevated troponin is chronic. This is likely a type II troponin leak. Hemoglobin, hematocrit lower than on prior evaluations. The patient is guaiac-negative on her examination. Reevaluation #4: 03/29/19 16:32 Nuclear medicine study is low probability for pulmonary embolus. Urinalysis suggests urinary tract infection. Hospital physician, Dr. Deborah Duvall, to admit ED Medical Decision Making - Lab Data Result diagrams: 03/29/19 12:50 03/29/19 12:50 Vital Signs 03/29/19 12:20 Temperature 97.9 F Pulse Rate 62 Respiratory 12 Rate Blood Pressure 169/83 Blood Pressure 169/83 [Right] O2 Sat by Pulse 97 Oximetry - EKG Data -: EKG Interpreted by [place] EKG shows normal: sinus rhythm Rate: normal - EKG Data 03/29/19 13:07 EKG today shows a normal sinus rhythm, normal axis, QTC 478 ms, left ventricular hypertrophy, QTC prolonged, and this EKG is abnormal, the EKG today appears to be unchanged from prior EKG from 12/24/2018. - Radiology Data Radiology results: pending Critical care attestation.: If time is entered above; I have spent that time in minutes in the direct care of this critically ill patient, excluding procedure time. ED Disposition Clinical Impression: Syncope, Convulsion, UTI (urinary tract infection) Disposition: OP ADMIT IP TO THIS HOSP Is pt being admited?: Yes Does the pt Need Aspirin: Yes Condition: Fair Instructions: Syncope (ED) Referrals: HANG EL MD [Primary Care Provider] - 3-5 Days - Assessment Assessment Interval: Baseline - Level of Consciousness 1a. Level of Consciousness: alert/keenly responsive - LOC Questions 1b. LOC Questions: answers 1 question correctly - LOC Command 1c. LOC Commands: performs tasks correctly - Best Gaze 2. Best Gaze: normal - Visual 3. Visual: no visual loss - Facial Palsy 4. Facial Palsy: normal symmetrical movement - Motor Arm 5a. Motor Arm Left: no drift 5b. Motor Arm Right: no drift - Motor Leg 6a. Motor Leg Left: no drift 6b. Motor Leg Right: no drift - Limb Ataxia 7. Limb Ataxia: absent - Sensory 8. Sensory: normal - Best Language 9. Best Language: no aphasia - Dysarthria 10. Dysarthria: normal - Extinction and Inattention 11. Extinction/Inattention: no abnormality - Scoring Total Score: 1 Stroke Severity: Minor Stroke
[2019-03-29 13:21] LABS: Basophils # (Auto) 0.1 K/mm3 (0.0-0.1); Eosinophils # (Auto) 0.2 K/mm3 (0.0-0.4); Eosinophils % (Auto) 2.4 % (0.0-4.3); Hematocrit 22.4 % (30.3-42.9); Hemoglobin 7.7 gm/dl (10.1-14.3); Lymphocytes # (Auto) 1.8 K/mm3 (1.2-5.4); Mean Corpuscular HGB Conc 34 % (30-34); Mean Corpuscular Volume 87 fl (79-97); Monocytes # (Auto) 0.4 K/mm3 (0.0-0.8); Platelet Count 320 K/mm3 (140-440); Red Blood Count 2.59 M/mm3 (3.65-5.03); Red Cell Distribution Width 13.7 % (13.2-15.2)
[2019-03-29 13:32] LABS: INR 1.01 (0.87-1.13); Partial Thromboplastin Time 24.7 Sec. (24.2-36.6)
[2019-03-29 13:35] LABS: Thrombin Time 16.8 Sec. (15.1-19.6)
[2019-03-29 13:39] LABS: Creatine Kinase MB 3.8 ng/mL (0.0-4.0)
[2019-03-29] MEDS ORDERED: KEPPRA 500 MG in D5W 100 ML IV ONE (13:42)
[2019-03-29 13:51] LABS: Chol/HDL Ratio 4.86 %
[2019-03-29 13:55] LABS: BUN/Creatinine Ratio TNR; Blood Urea Nitrogen TNR mg/dL (7-17); Calcium TNR mg/dL (8.4-10.2)
[2019-03-29 13:56] LABS: Hemolysis Index TNR
--- NOTE | 2019-03-29 14:00 | XRay Report ---
CHEST 1 VIEW INDICATION: Syncope for 2 weeks, weakness, seizure. COMPARISON: FINDINGS: Support devices: None. Heart: Within normal limits. Lungs/Pleura: No acute air space or interstitial disease. Additional findings: None. IMPRESSION: 1. No acute findings. Signer Name: Abiel Gee Jr, MD Signed: 03/29/2019 1:55 PM Workstation Name: [id number]
[2019-03-29] MEDS ORDERED: KEPPRA 1,000 MG/NS 0.75% 100ML 0 MG/0 ML BAG IV ONE (14:04)
--- NOTE | 2019-03-29 14:20 | Cat Scan Report ---
CT cervical spine without contrast INDICATION: Seizure, syncope for one day. Hypertension.. TECHNIQUE: Axial imaging performed through the cervical spine without the use of contrast. Sagittal and coronal reconstructed images were also reviewed. All CT scans at this location are performed us ing CT dose reduction for ALARA by means of automated exposure control. COMPARISON: None FINDINGS: Alignment: Spinal alignment is normal. Bones: There is no acute osseous abnormality. There is normal height and alignment of the cervical vertebral bodies. The disc spaces are normal height. The posterior elements are in appropriate relati onship. No significant degenerative disease. There is increased trabeculation and cortical thickenin g in the T2 vertebral body and posterior elements suggestive of Paget's disease. Soft tissues: No acute or significant incidental soft tissue abnormality. IMPRESSION: No evidence for acute injury of the cervical spine. Abnormal appearance of T2, Paget's d isease Signer Name: Abiel Gee Jr, MD Signed: 03/29/2019 2:16 PM Workstation Name: [id number]
--- NOTE | 2019-03-29 14:28 | Cat Scan Report ---
CT HEAD WITHOUT CONTRAST INDICATION : Seizure, syncope for one day. TECHNIQUE: Axial imaging performed from the skull apex through the skull base without the use of con trast. All CT scans at this location are performed using CT dose reduction for ALARA by means of aut omated exposure control. COMPARISON: 12/24/2018 FINDINGS: Parenchyma: Moderate chronic cortical infarct in the left parietal lobe measures up to 6.0 x 3.4 cm in axial plane. This is unchanged since the previous examination. Mild chronic small vessel disease i s identified in the white matter bilaterally but is most pronounced in the occipital regions. There i s no evidence for hemorrhage, mass, mass effect or extra-axial fluid collection. Ventricles: Ventricles are normal in size and appear symmetric. Soft tissues: Soft tissues including the orbits appear normal. Bones: No acute osseous abnormality. Sinuses: Sinuses and mastoid air cells are clear. IMPRESSION: No acute intracranial abnormality. 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 No ch kasey since 12/24/2018. Signer Name: Abiel Gee Jr, MD Signed: 03/29/2019 2:24 PM Workstation Name: [id number]
[2019-03-29 15:13] LABS: Bacteria,Urine 4+ /HPF (Negative); Bilirubin,Urine NEG (Negative); Blood,Urine SM (Negative); Color,Urine Yellow (Yellow); Hyaline Casts,Urine 3 /LPF; Mucus,Urine FEW /HPF; Urobilinogen,Urine < 2.0 mg/dL (<2.0)
[2019-03-29 15:17] LABS: Protein,Urine >500 mg/dL (Negative); WBC,Urine > 182.0 /HPF (0.0-6.0)
[2019-03-29] MEDS ORDERED: ROCEPHIN/NS 1 GM/50 ML 1 GM/50 ML BAG IV ONE ×2 (15:49→17:14)
--- NOTE | 2019-03-29 16:10 | Nuclear Medicine Report ---
VENTILATION PERFUSION PULMONARY SCINTIGRAPHY HISTORY: Syncope for 2 weeks COMPARISON: 03/29/2019 chest radiograph. TECHNIQUE: Radiopharmaceutical was inhaled. Tc-99m-MAA was then injected. Ventilation and perfusion images were acquired. RADIOPHARMACEUTICAL: mCi of Xe-133 inhaled mCi of Tc-99m-MAA injected FINDINGS: VENTILATION: No significant air trapping or defect. PERFUSION: No significant segmental or non-segmental defect. Additional Findings: None. IMPRESSION: 1. Low probability for pulmonary embolism. Signer Name: Abiel Gee Jr, MD Signed: 03/29/2019 4:06 PM Workstation Name: [id number]
--- NOTE | 2019-03-29 16:29 | Emergency Department Report ---
ED General Adult HPI - General Chief complaint: Syncope Stated complaint: OFF BALANCE Time Seen by Provider: 03/29/19 12:20 Source: patient, family, RN notes reviewed Mode of arrival: Wheelchair Limitations: Altered Mental Status - History of Present Illness Initial comments: [facility] Impression: Seizure, first time, and did not have a seizure before. She is back to normal herself, EEG, of her brain and MRI of her brain. CT head pending. Comments: STAT Recommendations: Start antiplatelet if no obvious contraindication Stroke protocol admission/ orderset suggested with placement on stroke floor tele monitoring Bedside swallow evaluation HOB less than 30 degrees IV Fluid hydration with NS Euglycemia avoid hyperthermia, PRN acetaminophen dvt ppx Consider inpatient neurology consultation Discussed with ED MD Please call with questions CC History of Present Illness MRs. Daigle with ESRd, and she had seizures, and accucheck was normal, she had a seizure, and MRI showed, petechial lesion on the brain and she was normal now. She was still confused, and she has baseline dementia, and is back at abase line. She has no documented history of diagnosed seizures, and has been going on. She is stage IV not on dialysis. She had a stroke previously, in 2017. She had to be cut upen in the middle of her stomach. She collapsed, on her, and she walked and was unbalanced. She did see a kidney doctor and primary care doctor. she was blacked out and eyes closed, and did not touch. Diagnostic: CT head is negative(OLD PARIEAL LEFT INFARCT) Exam: Patient is in no apparent distress. Patient appears as stated age. No obvious acute respiratory or cardiac distress. Patient is well groomed and well-nourished. NIHSS score: 1A: Level of Consciousness - Requires repeated stimulation to arouse 0 1B: Ask Month and Age - 0 Questions Right 0 1C: 'Blink Eyes' & 'Squeeze Hands' - Performs 0 Tasks 0 2: Test Horizontal Extraocular Movements - Partial Gaze Palsy: Corrects with Oculocephalic Reflex 0 3: Test Visual [place] - No Visual Loss 0 4: Test Facial Palsy - Normal symmetry 0 5A: Test Left Arm Motor Drift - Some Effort Against [place] 0 5B: Test Right Arm Motor Drift - Some Effort Against Gravity0 6A: Test Left Leg Motor Drift - Some Effort Against [place] 0 6B: Test Right Leg Motor Drift - Some Effort Against [place] 0 7: Test Limb Ataxia - Ataxia in 2 Limbs 0 8: Test Sensation - Complete Loss: Cannot Sense Being Touched At All 0 9: Test Language/Aphasia- Severe Aphasia: Fragmentary Expression, Inference Needed, Cannot Identify Materials 0 10: Test Dysarthria - Mute/Anarthric 0 11: Test Extinction/Inattention - Extinction to bilateral simultaneous stimulation 0 Medical Decision Making: - Extensive number of diagnosis or management options are considered above. - Extensive amount of complex data reviewed. - High risk of complication and/or morbidity or mortality are associated with differential diagnostic considerations above. - There may be Uncertain outcome and increased probability of prolonged functional impairment or high probability of severe prolonged functional impairment associated with some of these differential diagnosis. Medical Data Reviewed: 1.Data reviewed include clinical labs, radiology,Medical Tests; 2.Tests results discussed w/performing or interpreting physician; 3.Obtaining/reviewing old medical records; 4.Obtaining case history from another source; 5.Independent review of image, tracing or specimen Severity scale (0 -10): 7 Improves with: none Worsens with: none - Related Data Previous Rx's Medication Instructions Recorded Last Taken Type Insulin Glargine [Lantus] 7 units SQ QHS #1 vial 12/27/18 Unknown Rx NIFEdipine XL [Procardia Xl] 60 mg PO Q12HR #60 tablet 12/27/18 Unknown Rx Allergies Allergy/AdvReac Type Severity Reaction Status Date / Time No Known Allergies Allergy Unverified 06/23/16 14:03 ED Review of Systems ROS: Stated complaint: OFF BALANCE Other details as noted in HPI Constitutional: denies: fever Eyes: denies: eye discharge ENT: denies: epistaxis Respiratory: denies: cough Cardiovascular: syncope Gastrointestinal: denies: abdominal pain, hematemesis, melena, hematochezia Genitourinary: denies: dysuria Musculoskeletal: denies: back pain Neurological: weakness, confusion Psychiatric: denies: anxiety Hematological/Lymphatic: denies: easy bleeding ED Past Medical Hx - Past Medical History Previous Medical History?: Yes Hx Hypertension: Yes Hx Heart Attack/AMI: No Hx Diabetes: Yes Hx Liver Disease: No Hx Renal Disease: Yes Additional medical history: dementia - Social History Smoking Status: Never Smoker Substance Use Type: None - Medications Home Medications: Home Medications Medication Instructions Recorded Confirmed Last Taken Type Insulin Glargine [Lantus] 7 units SQ QHS #1 vial 12/27/18 Unknown Rx NIFEdipine XL [Procardia Xl] 60 mg PO Q12HR #60 tablet 12/27/18 Unknown Rx ED Physical Exam - General Limitations: Altered Mental Status General appearance: alert, in no apparent distress ED Course Vital Signs 03/29/19 03/29/19 03/29/19 12:19 12:20 13:00 Temperature 97.9 F Pulse Rate 62 63 Respiratory 13 12 17 Rate Blood Pressure 169/83 149/78 Blood Pressure 169/83 [Right] O2 Sat by Pulse 98 97 99 Oximetry 03/29/19 14:00 Temperature Pulse Rate Respiratory Rate Blood Pressure 212/85 Blood Pressure [Right] O2 Sat by Pulse 100 Oximetry ED Medical Decision Making - Lab Data Result diagrams: 03/29/19 12:50 03/29/19 12:50 Critical care attestation.: If time is entered above; I have spent that time in minutes in the direct care of this critically ill patient, excluding procedure time. ED Disposition Disposition: OP ADMIT IP TO THIS HOSP Condition: Fair Instructions: Syncope (ED) Referrals: HANG EL MD [Primary Care Provider] - 3-5 Days
[2019-03-29] MEDS ORDERED: BABY ASPIRIN PO ONE (16:32)
[2019-03-29 16:44] LABS: Calcium 10.3 mg/dL (8.4-10.2)
[2019-03-29] MEDS ORDERED: BABY ASPIRIN ONE (17:14)
[2019-03-29] MEDS ORDERED: APRESOLINE IV ONE (17:28)
[2019-03-29] MEDS ORDERED: APRESOLINE ONE (17:32)
[2019-03-29] MEDS ORDERED: NON-FORMULARY (Nifedipine [Nifedipine Er] 60 MG) PO SCH (22:00)
--- NOTE | 2019-03-29 22:07 | History and Physical Report ---
History of Present Illness Date of examination: 03/29/19 Date of admission: 03/29/19 16:32 Chief complaint: Recurrent syncopal episodes History of present illness: This is a 68-year-old female who presents to the ER with daughter for complaint of weakness, frequent falls, frequently loosing consciousness and passing out. Her latest episode of loss of consciousness was today, in the waiting room, apparently, the patient had an unwitnessed nontraumatic convulsive event, witnessed only by her youngest daughter, which was described as "I think it looks like a seizure." This has not happened to the patient in the past. No DVT or pulmonary embolus risk factors. Patient denies physical pain at this time. Patient indicates no exacerbating or relieving factors that she is aware of. Was evaluated for undifferentiated syncope at this hospital in December 2018, and had a low probability nuclear medicine study. The patient's youngest daughter is not sure if the patient started any new or different medications. The patient is also not certain at this time. - Past Medical History Previous Medical History?: Yes Hypertension: Yes Diabetes: Yes Renal Disease: Yes Additional medical history: dementia Surgical History None Social History Smoking Status: Never Smoker Substance Use Type: None Family history Htn - Medications Home Medications: Home Medications Medication Instructions Recorded Confirmed Last Taken Type Insulin Glargine [Lantus] 7 units SQ QHS #1 vial 12/27/18 Unknown Rx NIFEdipine XL [Procardia Xl] 60 mg PO Q12HR #60 tablet 12/27/18 Unknown Rx Review of Systems ROS: Stated complaint: OFF BALANCE Other details as noted in HPI Constitutional: denies: fever Eyes: denies: eye discharge ENT: denies: epistaxis Respiratory: denies: cough Cardiovascular: syncope Gastrointestinal: denies: abdominal pain, hematemesis, melena, hematochezia Genitourinary: denies: dysuria Musculoskeletal: denies: back pain Neurological: weakness, confusion Psychiatric: denies: anxiety Hematological/Lymphatic: denies: easy bleeding Medications and Allergies Allergies Allergy/AdvReac Type Severity Reaction Status Date / Time No Known Allergies Allergy Unverified 06/23/16 14:03 Home Medications Medication Instructions Recorded Confirmed Last Taken Type AtorvaSTATin [Lipitor] 40 mg PO DAILY 03/29/19 03/29/19 Unknown History Carvedilol [Coreg] 25 mg PO BID 03/29/19 03/29/1903/29/19 History Citalopram [celeXA] 10 mg PO QDAY 03/29/19 03/29/19 03/29/19 History Clopidogrel [Plavix] 75 mg PO QDAY 03/29/19 03/29/19 03/29/19 History Furosemide [Lasix TAB] 40 mg PO QDAY 03/29/19 03/29/19 03/29/19 History Insulin Glargine,Hum.rec.anlog 15 units SUB-Q QAM 03/29/19 03/29/19 03/29/19 History [Basaglar Kwikpen U-100] NIFEdipine [Nifedipine ER] 60 mg PO Q12H 03/29/19 03/29/19 03/29/19 History Active Meds: Active Medications Atorvastatin Calcium (Lipitor) 40 mg PO DAILY ZACARIAS Carvedilol (Coreg) 25 mg PO BID ZACARIAS Citalopram Hydrobromide (Celexa) 10 mg PO QDAY ZACARIAS Clopidogrel Bisulfate (Plavix) 75 mg PO QDAY ZACARIAS Furosemide (Lasix) 40 mg PO QDAY ZACARIAS Miscellaneous Medication (Insulin Glargine,Hum.Rec.Anlog [Basaglar Kwikpen U- 100]) 15 units SUB-Q QAM ZACARIAS Miscellaneous Medication (Nifedipine [Nifedipine Er]) 60 mg PO Q12H [facility] Exam - Constitutional Vitals: Temp Pulse Resp BP Pulse Ox 98.0 F 79 18 184/73 99 03/29/19 19:15 03/29/19 19:15 03/29/19 19:15 03/29/19 19:15 03/29/19 19:15 General appearance: Present: no acute distress, well-nourished - EENT Eyes: Present: PERRL ENT: hearing intact, clear oral mucosa - Neck Neck: Present: supple, normal ROM - Respiratory Respiratory effort: normal Respiratory: bilateral: CTA - Cardiovascular Heart rate: 78 Rhythm: regular Heart Sounds: Present: S1 & S2. Absent: rub, click - Extremities Extremities: pulses symmetrical, No edema Peripheral Pulses: within normal limits - Abdominal General gastrointestinal: Present: soft, non-tender, non-distended, normal bowel sounds Female genitourinary: Present: normal - Rectal Rectal Exam: deferred - Integumentary Integumentary: Present: clear, warm, dry - Musculoskeletal Musculoskeletal: gait normal, strength equal bilaterally - Psychiatric Psychiatric: appropriate mood/affect, intact judgment & insight - Neurologic Neurologic: CNII-XII intact, moves all extremities - Allied Health Allied health notes reviewed: nursing, case management Results - Labs CBC & Chem 7: 03/30/19 07:07 03/30/19 07:07 Labs: Laboratory Last Values WBC 6.5 K/mm3 (4.5-11.0) 03/29/19 12:50 RBC 2.59 M/mm3 (3.65-5.03) L 03/29/19 12:50 Hgb 7.7 gm/dl (10.1-14.3) L 03/29/19 12:50 Hct 22.4 % (30.3-42.9) L 03/29/19 12:50 MCV 87 fl (79-97) 03/29/19 12:50 MCH 30 pg (28-32) 03/29/19 12:50 MCHC 34 % (30-34) 03/29/19 12:50 RDW 13.7 % (13.2-15.2) 03/29/19 12:50 Plt Count 320 K/mm3 (140-440) 03/29/19 12:50 Lymph % (Auto) 28.0 % (13.4-35.0) 03/29/19 12:50 [place] % (Auto) 6.0 % (0.0-7.3) 03/29/19 12:50 Eos % (Auto) 2.4 % (0.0-4.3) 03/29/19 12:50 Baso % (Auto) 2.0 % (0.0-1.8) H 03/29/19 12:50 Lymph # 1.8 K/mm3 (1.2-5.4) 03/29/19 12:50 [place] # 0.4 K/mm3 (0.0-0.8) 03/29/19 12:50 Eos # 0.2 K/mm3 (0.0-0.4) 03/29/19 12:50 Baso # 0.1 K/mm3 (0.0-0.1) 03/29/19 12:50 Seg Neutrophils % 61.6 % (40.0-70.0) 03/29/19 12:50 Seg Neutrophils # 4.0 K/mm3 (1.8-7.7) 03/29/19 12:50 PT 13.0 Sec. (12.2-14.9) 03/29/19 12:50 INR 1.01 (0.87-1.13) 03/29/19 12:50 APTT 24.7 Sec. (24.2-36.6) 03/29/19 12:50 16.8 Sec. (15.1-19.6) 03/29/19 12:50 439.71 ng/mlDDU (0-234) H 03/29/19 12:50 Sodium 133 mmol/L (137-145) L 03/29/19 16:08 Potassium 4.3 mmol/L (3.6-5.0) 03/29/19 16:08 Chloride 99.8 mmol/L (98-107) 03/29/19 16:08 Carbon Dioxide 22 mmol/L (22-30) 03/29/19 16:08 16 mmol/L 03/29/19 16:08 BUN 30 mg/dL (7-17) H 03/29/19 16:08 2.6 mg/dL (0.7-1.2) H 03/29/19 16:08 Estimated GFR 22 ml/min 03/29/19 16:08 12 % 03/29/19 16:08 Glucose 216 mg/dL (65-100) H 03/29/19 16:08 POC Glucose 269 (70-105) H 03/29/19 20:08 Calcium 10.3 mg/dL (8.4-10.2) H 03/29/19 16:08 Magnesium 1.80 mg/dL (1.7-2.3) 03/29/19 12:50 155 units/L (30-135) H 03/29/19 12:50 CK-MB (CK-2) 3.8 ng/mL (0.0-4.0) 03/29/19 12:50 CK-MB (CK-2) Rel Index 2.4 (0-4) 03/29/19 12:50 0.054 ng/mL (0.00-0.029) H 03/29/19 12:50 Triglycerides 167 mg/dL (2-149) H 03/29/19 12:50 Cholesterol 248 mg/dL (50-199) H 03/29/19 12:50 166 mg/dL (50-130) H 03/29/19 12:50 51 mg/dL (40-59) 03/29/19 12:50 4.86 % 03/29/19 12:50 TSH 2.400 mlU/mL (0.270-4.200) 03/29/19 12:50 Yellow (Yellow) 03/29/19 14:24 Cloudy (Clear) 03/29/19 14:24 6.0 (5.0-7.0) 03/29/19 14:24 Ur Specific [place] 1.010 (1.003-1.030) 03/29/19 14:24 >500 mg/dL (Negative) 03/29/19 14:24 50 mg/dL (Negative) 03/29/19 14:24 Neg mg/dL (Negative) 03/29/19 14:24 Sm (Negative) 03/29/19 14:24 Neg (Negative) 03/29/19 14:24 Neg (Negative) 03/29/19 14:24 < 2.0 mg/dL (<2.0) 03/29/19 14:24 Ur Leukocyte Esterase Lg (Negative) 03/29/19 14:24 > 182.0 /HPF (0.0-6.0) H 03/29/19 14:24 18.0 /HPF (0.0-6.0) 03/29/19 14:24 U Epithel Cells (Auto) < 1.0 /HPF (0-13.0) 03/29/19 14:24 4+ /HPF (Negative) 03/29/19 14:24 Hyaline Casts 3 /LPF 03/29/19 14:24 Few /HPF 03/29/19 14:24 Salicylates < 0.3 mg/dL (2.8-20.0) L 03/29/19 12:50 Acetaminophen < 5.0 ug/mL (10.0-30.0) L 03/29/19 12:50 Short CBC 03/29/19 03/30/19 Range/Units 12:50 07:07 WBC 6.5 7.5 (4.5-11.0) K/mm3 Hgb 7.7 L 7.9 L (10.1-14.3) gm/dl Hct 22.4 L 23.7 L (30.3-42.9) % Plt Count 320 293 (140-440) K/mm3 BMP 03/29/19 03/29/19 03/30/19 12:50 16:08 07:07 Sodium TNR 133 L 139 Potassium TNR 4.3 3.9 Chloride TNR 99.8 104.4 Carbon Dioxide TNR 22 22 BUN TNR 30 H 32 H Creatinine TNR 2.6 H 2.6 H Glucose TNR 216 H 172 H Calcium TNR 10.3 H 9.9 Cardiac Enzymes 03/29/19 Range/Units 12:50 Total Creatine Kinase 155 H (30-135) units/L CK-MB (CK-2) 3.8 (0.0-4.0) ng/mL Troponin T 0.054 H (0.00-0.029) ng/mL Liver Function 03/30/19 Range/Units 07:07 Total Bilirubin 0.20 (0.1-1.2) mg/dL AST 18 (5-40) units/L ALT 15 (7-56) units/L Alkaline Phosphatase 115 (35-129) units/L Albumin 2.8 L (3.9-5) g/dL Urine 03/29/19 Range/Units 14:24 Urine Color Yellow (Yellow) Urine pH 6.0 (5.0-7.0) Ur Specific [place] 1.010 (1.003-1.030) Urine Protein >500 (Negative) mg/dL Urine Glucose (UA) 50 (Negative) mg/dL - Imaging and Cardiology EKG: report reviewed Chest x-ray: report reviewed (NAF) Imaging and Cardiology: CT scan of the brain negative for acute disease. CT scan of the cervical spine negative for acute disease. X-ray of the chest negative for acute disease. Nuclear medicine study is low probability for pulmonary embolus. Assessment and Plan Advance Directives: Yes (Full code) VTE prophylaxis?: Chemical Plan of care discussed with patient/family: Yes - Patient Problems (1) Syncope Current Visit: Yes Status: Acute Qualifiers: Syncope type: unspecified Qualified Code(s): R55 - Syncope and collapse Plan to address problem: Recurrent Echo CDS and Lexiscan ordered Tilt test as out patient (2) Seizure disorder Current Visit: Yes Status: Acute Plan to address problem: JENNIFER Fofana initiated Not sure whether she is having seizures and passing out Neuro consult requested (3) Anemia Current Visit: Yes Status: Chronic Qualifiers: Anemia type: unspecified type Qualified Code(s): D64.9 - Anemia, unspecified Plan to address problem: Anemia work up (4) ESEQUIEL (acute kidney injury) Current Visit: Yes Status: Acute Plan to address problem: sec to ATN Defer to Nephrology (5) HTN (hypertension) Current Visit: Yes Status: Chronic Qualifiers: Hypertension type: essential hypertension Qualified Code(s): I10 - Essential (primary) hypertension Plan to address problem: Cont antihypertensives (6) IDDM (insulin dependent diabetes mellitus) Current Visit: Yes Status: Chronic Plan to address problem: ContInsulinand coverage Check A1c (7) HLD (hyperlipidemia) Current Visit: Yes Status: Chronic Qualifiers: Hyperlipidemia type: mixed hyperlipidemia Qualified Code(s): E78.2 - Mixed hyperlipidemia Plan to address problem: COnt statins (8) Depression Current Visit: Yes Status: Chronic Plan to address problem: On Celexa (9) CAD (coronary artery disease) Current Visit: Yes Status: Chronic Qualifiers: Coronary Disease-Associated Artery/Lesion type: [place] artery [place] vs. transplanted heart: [place] heart Plan to address problem: On Plavix and ASA (10) DVT prophylaxis Current Visit: Yes Status: Acute Plan to address problem: On Lovenox and GI prophylaxis
[2019-03-29] MEDS ORDERED: PERCOCET 5/325 PO PRN (22:09)
[2019-03-29] MEDS ORDERED: DILAUDID IV PRN (22:09)
[2019-03-29] MEDS ORDERED: ZOFRAN IV PRN (22:09)
[2019-03-29] MEDS ORDERED: TYLENOL PO PRN (22:09)
[2019-03-29] MEDS ORDERED: SODIUM CHLORIDE FLUSH SYRINGE 10 ML IV PRN (22:09)
[2019-03-29] MEDS: PROCARDIA XL PO SCH (22:46)
[2019-03-29] MEDS: NACL 0.9% 1000 ML 1,000 ML IV SCH (22:46)
[2019-03-29] MEDS: KEPPRA 750 MG in D5W 100 ML IV SCH (22:46)
[2019-03-29] MEDS: COREG PO SCH (22:47)
[2019-03-29] MEDS: SODIUM CHLORIDE FLUSH SYRINGE 10 ML IV SCH (22:47)
[2019-03-30 07:38] LABS: Basophils # (Auto) 0.1 K/mm3 (0.0-0.1); Basophils % (Auto) 1.5 % (0.0-1.8); Eosinophils # (Auto) 0.2 K/mm3 (0.0-0.4); Hematocrit 23.7 % (30.3-42.9); Hemoglobin 7.9 gm/dl (10.1-14.3); Lymphocytes # (Auto) 2.2 K/mm3 (1.2-5.4); Lymphocytes % (Auto) 29.5 % (13.4-35.0); Mean Corpuscular HGB Conc 33 % (30-34); Mean Corpuscular Volume 86 fl (79-97); Monocytes # (Auto) 0.6 K/mm3 (0.0-0.8); Monocytes % (Auto) 8.4 % (0.0-7.3); Platelet Count 293 K/mm3 (140-440); Red Blood Count 2.76 M/mm3 (3.65-5.03); Red Cell Distribution Width 13.8 % (13.2-15.2)
[2019-03-30 07:52] LABS: Albumin 2.8 g/dL (3.9-5); Calcium 9.9 mg/dL (8.4-10.2)
[2019-03-30] MEDS: HumaLOG SUB-Q SCH ×4 (09:43→22:51)
[2019-03-30] MEDS: COREG PO SCH ×2 (09:43→22:48)
[2019-03-30] MEDS: PLAVIX PO SCH (09:43)
[2019-03-30] MEDS: PROCARDIA XL PO SCH ×2 (09:43→22:48)
[2019-03-30] MEDS: LASIX PO SCH (09:43)
[2019-03-30] MEDS: SODIUM CHLORIDE FLUSH SYRINGE 10 ML IV SCH ×2 (09:44→22:49)
[2019-03-30] MEDS ORDERED: INSULIN GLARGINE HUM REC ANLOG 15 UNIT SUB-Q SCH (10:00)
--- NOTE | 2019-03-30 10:22 | Vascular Lab Report ---
BILATERAL CAROTID DOPPLER ULTRASOUND INDICATION : Syncope for 2 weeks TECHNIQUE: Grayscale and color Doppler imaging performed through the neck. COMPARISON: None FINDINGS: Right: There is mild partially calcified plaque in the CCA and carotid bulb.. Peak systolic velocit y in the CCA is 91 cm/s with end-diastolic velocity of 23 cm/s. Peak systolic velocity in the proxima l ICA is 118 cm/s with end-diastolic velocity of 23 cm/s. ICA to CCA ratio is less than 2. There is a ntegrade flow in the ECA and the vertebral artery. Left: There is mild partially calcified plaque in the proximal ICA. Peak systolic velocity in the CCA is 110 cm/s with end-diastolic velocity of 24 cm/s. Peak systolic velocity in the proximal ICA is 80 cm/s with end-diastolic velocity of 25 cm/s. ICA to CCA ratio is less than 2. There is antegrade fl ow in the ECA and the vertebral artery. Velocities in the proximal left subclavian artery are elevated measuring 192 cm/s. IMPRESSION: No hemodynamically significant stenosis of the carotid systems by NASCET criteria. Mildly elevated velocities in the proximal left subclavian artery are identified suggestive of mild stenosi s. Correlate for subclavian steal syndrome. Signer Name: Abiel Gee Jr, MD Signed: 03/30/2019 10:18 AM Workstation Name: [id number]
--- NOTE | 2019-03-30 10:54 | Consultation ---
History of Present Illness Consult date: 03/30/19 Consult reason: syncope History of present illness: This is a 68 year old woman with a history of Dementia, Hypertension, chronic kidney disease, Diabetes, and prior CVA on plavix therapy. There is no history of coronary artery disease and she had no prior cardiac workup. Patient was brought to the emergency department with reports of syncope during an outpatient lab draw. In addition, while in the waiting area, family member at the bedside reports the patient became unresponsive and appeared to have had a seizure. A cardiac consultation has been requested for evaluation of syncope. Patient denies chest pain, denies shortness of breath, denies palpitations and denies dizziness. Chest x-ray is negative and a ventilation perfusion scan reports a low probability for PE. Head CT reports chronic left parietal lobe infarct. No acute intracranial abnormalities. Labs revealed a hematocrit of 22.4 and a creatinine of 2.6. Urinalysis suggestive of UTI. 12 lead ECG is sinus rhythm with LVH. No acute ischemic changes. Medications and Allergies Allergies Allergy/AdvReac Type Severity Reaction Status Date / Time No Known Allergies Allergy Unverified 06/23/16 14:03 Home Medications Medication Instructions Recorded Confirmed Last Taken Type AtorvaSTATin [Lipitor] 40 mg PO DAILY 03/29/19 03/29/19 Unknown History Carvedilol [Coreg] 25 mg PO BID 03/29/19 03/29/19 03/29/19 History Citalopram [celeXA] 10 mg PO QDAY 03/29/19 03/29/19 03/29/19 History Clopidogrel [Plavix] 75 mg PO QDAY 03/29/19 03/29/19 03/29/19 History Furosemide [Lasix TAB] 40 mg PO QDAY 03/29/19 03/29/19 03/29/19 History Insulin Glargine,Hum.rec.anlog 15 units SUB-Q QAM 03/29/19 03/29/19 03/29/19 History [Jaswinder Fallon U-100] NIFEdipine [Nifedipine ER] 60 mg PO Q12H 03/29/19 03/29/19 03/29/19 History Active Meds: Active Medications Acetaminophen (Tylenol) 650 mg PO Q4H PRN PRN Reason: Pain MILD(1-3)/Fever >100.5/VICTORIA Atorvastatin Calcium (Lipitor) 40 mg PO DAILY@2200 ZACARIAS Last Admin: 03/29/19 22:46 Dose: 40 mg Documented by: Carvedilol (Coreg) 25 mg PO BID [facility] Last Admin: 03/30/19 09:43 Dose: 25 mg Documented by: Citalopram Hydrobromide (Celexa) 10 mg PO QDAY [facility] Clopidogrel Bisulfate (Plavix) 75 mg PO QDAY [facility] Last Admin: 03/30/19 09:43 Dose: 75 mg Documented by: Furosemide (Lasix) 40 mg PO QDAY [facility] Last Admin: 03/30/19 09:43 Dose: 40 mg Documented by: Hydromorphone HCl (Dilaudid) 0.5 mg IV Q3H PRN PRN Reason: Pain , Severe (7-10) Sodium Chloride (Nacl 0.9% 1000 Ml) 1,000 mls @ 75 mls/hr IV DIRECT [facility] Stop: 03/30/19 23:59 Last Admin: 03/29/19 22:46 Dose: 75 mls/hr Documented by: Levetiracetam 750 mg/ Dextrose 107.5 mls @ 400 mls/hr IV Q12HR [facility] Last Admin: 03/29/19 22:46 Dose: 400 mls/hr Documented by: Ceftriaxone Sodium (Rocephin/Ns 1 Gm/50 Ml) 1 gm in 50 mls @ 100 mls/hr IV Q24HR [facility]; Protocol Insulin Glargine (Lantus) 15 units SUB-Q QAM [facility] Insulin Human Lispro (Humalog) 0 unit SUB-Q ACHS [facility]; Protocol Last Admin: 03/30/19 09:43 Dose: 2 unit Documented by: Nifedipine (Procardia Xl) 60 mg PO Q12H [facility] Last Admin: 03/30/19 09:43 Dose: 60 mg Documented by: Ondansetron HCl (Zofran) 4 mg IV Q8H PRN PRN Reason: Nausea And Vomiting Oxycodone/Acetaminophen (Percocet 5/325) 1 tab PO Q6H PRN PRN Reason: Pain, Moderate (4-6) Sodium Chloride (Sodium Chloride Flush Syringe 10 Ml) 10 ml IV BID [facility] Last Admin: 03/30/19 09:44 Dose: 10 ml Documented by: Sodium Chloride (Sodium Chloride Flush Syringe 10 Ml) 10 ml IV PRN PRN PRN Reason: LINE FLUSH Physical Examination Vital Signs Resp Pulse Ox 13 98 03/29/19 12:19 03/29/19 12:19 General appearance: no acute distress HEENT: Positive: PERRL Neck: Positive: trachea midline Cardiac: Positive: Reg Rate and Rhythm Lungs: Positive: Decreased Breath Sounds Neuro: Positive: Grossly Intact Extremities: Absent: edema Results 03/30/19 07:07 03/30/19 07:07 Cardiac Enzymes 03/29/19 03/30/19 Range/Units 12:50 07:07 AST 18 (5-40) units/L CK-MB (CK-2) 3.8 (0.0-4.0) ng/mL Coagulation 03/29/19 Range/Units 12:50 PT 13.0 (12.2-14.9) Sec. INR 1.01 (0.87-1.13) APTT 24.7 (24.2-36.6) Sec. Lipids 03/29/19 Range/Units 12:50 Triglycerides 167 H (2-149) mg/dL Cholesterol 248 H (50-199) mg/dL HDL Cholesterol 51 (40-59) mg/dL Cholesterol/HDL Ratio 4.86 % CBC 03/29/19 03/30/19 Range/Units 12:50 07:07 WBC 6.5 7.5 (4.5-11.0) K/mm3 RBC 2.59 L 2.76 L (3.65-5.03) M/mm3 Hgb 7.7 L 7.9 L (10.1-14.3) gm/dl Hct 22.4 L 23.7 L (30.3-42.9) % Plt Count 320 293 (140-440) K/mm3 Lymph # 1.8 2.2 (1.2-5.4) K/mm3 [place] # 0.4 0.6 (0.0-0.8) K/mm3 Eos # 0.2 0.2 (0.0-0.4) K/mm3 Baso # 0.1 0.1 (0.0-0.1) K/mm3 Comprehensive Metabolic Panel 03/29/19 03/29/19 03/30/19 Range/Units 12:50 16:08 07:07 Sodium TNR 133 L 139 Potassium TNR 4.3 3.9 Chloride TNR 99.8 104.4 Carbon Dioxide TNR 22 22 BUN TNR 30 H 32 H Creatinine TNR 2.6 H 2.6 H Glucose TNR 216 H 172 H Calcium TNR 10.3 H 9.9 AST 18 (5-40) units/L ALT 15 (7-56) units/L Alkaline Phosphatase 115 (35-129) units/L Total Protein 6.7 (6.3-8.2) g/dL Albumin 2.8 L (3.9-5) g/dL Assessment and Plan Syncope vs Seizure UTI Anemia Dementia Hypertension Chronic kidney disease Diabetes Prior CVA on plavix therapy Echocardiogram for LVEF assessment. Neurology consultation and evaluation of syncope.
[2019-03-30] MEDS: celeXA PO SCH (11:58)
[2019-03-30] MEDS: KEPPRA 750 MG in D5W 100 ML IV SCH (11:59)
[2019-03-30] MEDS: ROCEPHIN/NS 1 GM/50 ML 1 GM/50 ML BAG IV SCH (14:15)
--- NOTE | 2019-03-30 18:53 | Consultation ---
History of Present Illness Consult date: 03/30/19 Chief complaint: Loss of consciousness, altered mental status History of present illness: Patient is a 68-year-old woman with a history of end-stage renal disease not on hemodialysis, diabetes, hypertension, history of stroke with residual cognitive deficits and right-sided weakness and tremors. Patient is then noted to have frequent passing out and falling episodes over the past few months. Yesterday, patient was being taken by her daughter to have blood drawn. While there, patient was noted to fall forwards, and was noted to have her eyes open at the time. Her daughter then brought her to the emergency room, and while there in the waning, the daughter states that her mother once again lost consciousness and was noted to have generalized convulsions. She states that during the generalized convulsions, her eyes were closed. Upon waking up, the daughter noted that she seemed to be more confused. At baseline, the daughter states that she does have cognitive deficits, however she usually knows her age, the year, and the month. The daughter states that she has been confused since yesterday. Past History Past Medical History: hyperlipidemia, renal failure, stroke, other (HLD) Social history: no significant social history Family history: no significant family history Medications and Allergies Allergies Allergy/AdvReac Type Severity Reaction Status Date / Time No Known Allergies Allergy Unverified 06/23/16 14:03 Home Medications Medication Instructions Recorded Confirmed Last Taken Type AtorvaSTATin [Lipitor] 40 mg PO DAILY 03/29/19 03/29/19 Unknown History Carvedilol [Coreg] 25 mg PO BID 03/29/19 03/29/19 03/29/19 History Citalopram [celeXA] 10 mg PO QDAY 03/29/19 03/29/19 03/29/19 History Clopidogrel [Plavix] 75 mg PO QDAY 03/29/19 03/29/19 03/29/19 History Furosemide [Lasix TAB] 40 mg PO QDAY 03/29/19 03/29/19 03/29/19 History Insulin Glargine,Hum.rec.anlog 15 units SUB-Q QAM 03/29/19 03/29/19 03/29/19 History [Jaswinder Fallon U-100] NIFEdipine [Nifedipine ER] 60 mg PO Q12H 03/29/19 03/29/19 03/29/19 History Active Meds: Active Medications Acetaminophen (Tylenol) 650 mg PO Q4H PRN PRN Reason: Pain MILD(1-3)/Fever >100.5/VICTORIA Atorvastatin Calcium (Lipitor) 40 mg PO DAILY@2200 [facility] Last Admin: 03/29/19 22:46 Dose: 40 mg Documented by: Carvedilol (Coreg) 25 mg PO BID [facility] Last Admin: 03/30/19 09:43 Dose: 25 mg Documented by: Citalopram Hydrobromide (Celexa) 10 mg PO QDAY [facility] Last Admin: 03/30/19 11:58 Dose: 10 mg Documented by: Clopidogrel Bisulfate (Plavix) 75 mg PO QDAY [facility] Last Admin: 03/30/19 09:43 Dose: 75 mg Documented by: Furosemide (Lasix) 40 mg PO QDAY [facility] Last Admin: 03/30/19 09:43 Dose: 40 mg Documented by: Hydromorphone HCl (Dilaudid) 0.5 mg IV Q3H PRN PRN Reason: Pain , Severe (7-10) Sodium Chloride (Nacl 0.9% 1000 Ml) 1,000 mls @ 75 mls/hr IV DIRECT [facility] Stop: 03/30/19 23:59 Last Admin: 03/29/19 22:46 Dose: 75 mls/hr Documented by: Levetiracetam 750 mg/ Dextrose 107.5 mls @ 400 mls/hr IV Q12HR [facility] Last Admin: 03/30/19 11:59 Dose: 400 mls/hr Documented by: Ceftriaxone Sodium (Rocephin/Ns 1 Gm/50 Ml) 1 gm in 50 mls @ 100 mls/hr IV Q24HR [facility]; Protocol Last Admin: 03/30/19 14:15 Dose: 100 mls/hr Documented by: Insulin Glargine (Lantus) 15 units SUB-Q QAM [facility] Insulin Human Lispro (Humalog) 0 unit SUB-Q ACHS [facility]; Protocol Last Admin: 03/30/19 17:44 Dose: 1 unit Documented by: Nifedipine (Procardia Xl) 60 mg PO Q12H [facility] Last Admin: 03/30/19 09:43 Dose: 60 mg Documented by: Ondansetron HCl (Zofran) 4 mg IV Q8H PRN PRN Reason: Nausea And Vomiting Oxycodone/Acetaminophen (Percocet 5/325) 1 tab PO Q6H PRN PRN Reason: Pain, Moderate (4-6) Sodium Chloride (Sodium Chloride Flush Syringe 10 Ml) 10 ml IV BID [facility] Last Admin: 03/30/19 09:44 Dose: 10 ml Documented by: Sodium Chloride (Sodium Chloride Flush Syringe 10 Ml) 10 ml IV PRN PRN PRN Reason: LINE FLUSH Review of Systems All systems: negative Neurological: convulsions, confusion Physical Examination - Vital Signs Vital Signs: Vital Signs Resp Pulse Ox 13 98 03/29/19 12:19 03/29/19 12:19 - Constitutional General appearance: comfortable - EENT EENT: Present: ATNC, PERRL, mucous membranes moist - Respiratory Respiratory: Present: lungs clear, normal breath sounds - Cardiovascular Cardiovascular: Present: regular rate Extremities: Present: no peripheral edema bilatateraly, no clubbing, cyanosis - Gastrointestinal Gastrointestinal: Present: normoactive bowel sounds, soft, non-tender - Integumentary Integumentary: Present: normal - Neurologic Cranial nerve examination: PERRL, EOMI, other (Decreased vision on Rt. visual field) Speech examination: intact Motor examination - right side: 4/5: biceps, triceps, hip flexors, knee extensors, dorsiflexion, plantarflexion Motor examination - left side: 5/5: biceps, triceps, hip flexors, knee extensors, dorsiflexion, plantarflexion Detailed sensory examination: intact Reflex and gait examination: other (deferred) Reflexes: 2+: ankle, bicep, knee, tricep - Additional Exam Additional Exam: Alert, oriented to name and age, minus month. Follows 2-step commands intermittently Results - Laboratory Findings CBC and BMP: 03/30/19 07:07 03/30/19 07:07 Abnormal Lab Findings: Abnormal Labs 03/29/19 03/29/19 03/29/19 12:50 12:50 12:50 RBC 2.59 L Hgb 7.7 L Hct 22.4 L Branch % (Auto) Baso % (Auto) 2.0 H D-Dimer 439.71 H Sodium BUN Creatinine Glucose POC Glucose Hemoglobin A1c Calcium Total Creatine Kinase 155 H Troponin T 0.054 H Albumin Triglycerides 167 H Cholesterol 248 H LDL Cholesterol Direct 166 H Urine WBC (Auto) Salicylates Acetaminophen 03/29/19 03/29/19 03/29/19 12:50 12:50 14:24 RBC Hgb Hct Branch % (Auto) Baso % (Auto) D-Dimer Sodium BUN Creatinine Glucose POC Glucose Hemoglobin A1c Calcium Total Creatine Kinase Troponin T Albumin Triglycerides Cholesterol LDL Cholesterol Direct Urine WBC (Auto) > 182.0 H Salicylates < 0.3 L Acetaminophen < 5.0 L 03/29/19 03/29/19 03/29/19 16:08 20:08 22:10 RBC Hgb Hct Branch % (Auto) Baso % (Auto) D-Dimer Sodium 133 L BUN 30 H Creatinine 2.6 H Glucose 216 H POC Glucose 269 H Hemoglobin A1c 7.9 H Calcium 10.3 H Total Creatine Kinase Troponin T Albumin Triglycerides Cholesterol LDL Cholesterol Direct Urine WBC (Auto) Salicylates Acetaminophen 03/30/19 03/30/19 03/30/19 07:07 07:07 09:05 RBC 2.76 L Hgb 7.9 L Hct 23.7 L Branch % (Auto) 8.4 H Baso % (Auto) D-Dimer Sodium BUN 32 H Creatinine 2.6 H Glucose 172 H POC Glucose 154 H Hemoglobin A1c Calcium Total Creatine Kinase Troponin T 0.054 H Albumin 2.8 L Triglycerides Cholesterol LDL Cholesterol Direct Urine WBC (Auto) Salicylates Acetaminophen 03/30/19 17:33 RBC Hgb Hct Branch % (Auto) Baso % (Auto) D-Dimer Sodium BUN Creatinine Glucose POC Glucose 164 H Hemoglobin A1c Calcium Total Creatine Kinase Troponin T Albumin Triglycerides Cholesterol LDL Cholesterol Direct Urine WBC (Auto) Salicylates Acetaminophen Assessment and Plan Patient is a 68-year-old woman with a history of end-stage renal disease not on hemodialysis, diabetes, hypertension, history of stroke with residual cognitive deficits and right-sided weakness and tremors, who presents with loss of consciousness and convulsions. According the patient's clinical findings, it is possible that the patient has had a seizure. Alternatively, the patient may have had a syncopal event. The altered mental status is likely due to underlying UTI which was discovered on urinalysis. Plan: 1. Loss of consciousness: Will obtain an EEG to rule out seizures. We'll also perform MRI brain. We'll hold Keppra until EEG is performed. It is possible that the patient may have had a single seizure in the setting of UTI with history of stroke, and may not need long-term anticonvulsant therapy. Recommend checking orthostatic vital signs. 2. UTI: Continue to treat UTI per primary team. 3. History of stroke: Cont. statin and plavix. - Will continue to follow patient. - Plan was discussed with the patient's daughter, the patient, and primary team. Thank you for allowing me to take part in the care of this patient. Allen Winters MD Neurology - Patient Problems (1) Metabolic encephalopathy Current Visit: Yes Status: Acute (2) Convulsion Current Visit: Yes Status: Acute (3) Syncope Current Visit: Yes Status: Acute Qualifiers: Syncope type: unspecified Qualified Code(s): R55 - Syncope and collapse
--- NOTE | 2019-03-30 19:18 | Progress Note ---
Assessment and Plan Assessment and plan: Assessment and plan 68-year-old with history of weakness frequent falls and unsteady gait syncope presented with what appeared to be seizure. #1 syncope exact etiology at this particular time unknown. Could've potentially been seizure. Patient has a history of previous CVA current UTI. Clearly he victoria s potential to have seizure. Spoke with neurology and agree with not giving patient the diagnoses of chronic seizure prior to his central workup. And poor history all witnessed seizure. We'll perform EEG in a.m. Hold Keppra for now and treat with Ativan when necessary for any further seizure disorder. Additional workup for syncope has been unremarkable. Awaiting orthostatics. Underlying dementia is also on my differential. #2 anemia will rule out GI bleed obtain Hemoccult blood stool GI consult. Transfuse as tolerated. When required. 3 Acute on Chronic Kidney Disease Also Could Be a Potential for Making Patient Very Weak and Unsteady on Gait. Electrolytes Appear to Be Fairly Well Controlled. Obtain nephrology consult. Creatinine. To be at baseline 30 and 2.6 at this particular time. #3 hypertension fairly well controlled we'll rule out orthostatics. #4 insulin-dependent diabetes mellitus we'll continue to treat with sliding scale. Patient has poor appetite at this particular time. We'll not be too aggressive to prevent hypoglycemia. #5 hyperlipidemia LDL 166 we'll add statin. #6 depression continue antidepressant medications. #7 past history of coronary artery disease continue aspirin and Plavix as mentioned above. #8 minimal cognitive impairment. Workup of underlying dementia may be warranted. Disposition Plan: assessment and plan 68-year-old History Interval history: Patient 68-year-old that presents with weakness. Patient has a history of frequent falls unsteady gait, syncope dementia and unwitnessed seizure. According to family patient has had multiple syncopal episodes. CT scan presently negative cervical spine CT negative chest x-ray unremarkable and chest angiogram unremarkable for PE. It was initially thought the patient may have had a seizure was started on IV Keppra upon presentation. Patient able to lay in bed flat alert to me that she feels okay no seizures. Full conversation. Hospitalist Physical - Constitutional Vitals: Temp Pulse Resp BP Pulse Ox 98.3 F 67 18 141/65 96 03/30/19 17:27 03/30/19 17:27 03/30/19 17:27 03/30/19 17:27 03/30/19 17:27 General appearance: Present: no acute distress - EENT Eyes: Present: PERRL, EOM intact ENT: hearing intact, clear oral mucosa, dentition normal, poor dentition, no oropharyngeal erythema, no thrush - Neck Neck: Present: supple, normal ROM - Respiratory Respiratory: bilateral: CTA - Cardiovascular Rhythm: regular Heart Sounds: Present: S1 & S2 - Extremities Extremities: no ischemia, pulses intact, pulses symmetrical, No edema, normal temperature, normal color, Full ROM Peripheral Pulses: within normal limits - Abdominal General gastrointestinal: soft, non-tender, normal bowel sounds, other, no hepatomegaly, no splenomegaly - Integumentary Integumentary: Present: clear, warm, dry - Psychiatric Psychiatric: other - Neurologic Neurologic: moves all extremities, other (cognitive deficit.) Results - Labs CBC & Chem 7: 03/30/19 07:07 03/30/19 07:07 Labs: Laboratory Last Values WBC 7.5 K/mm3 (4.5-11.0) 03/30/19 07:07 RBC 2.76 M/mm3 (3.65-5.03) L 03/30/19 07:07 Hgb 7.9 gm/dl (10.1-14.3) L 03/30/19 07:07 Hct 23.7 % (30.3-42.9) L 03/30/19 07:07 MCV 86 fl (79-97) 03/30/19 07:07 MCH 29 pg (28-32) 03/30/19 07:07 MCHC 33 % (30-34) 03/30/19 07:07 RDW 13.8 % (13.2-15.2) 03/30/19 07:07 Plt Count 293 K/mm3 (140-440) 03/30/19 07:07 Lymph % (Auto) 29.5 % (13.4-35.0) 03/30/19 07:07 [place] % (Auto) 8.4 % (0.0-7.3) H 03/30/19 07:07 Eos % (Auto) 2.0 % (0.0-4.3) 03/30/19 07:07 Baso % (Auto) 1.5 % (0.0-1.8) 03/30/19 07:07 Lymph # 2.2 K/mm3 (1.2-5.4) 03/30/19 07:07 [place] # 0.6 K/mm3 (0.0-0.8) 03/30/19 07:07 Eos # 0.2 K/mm3 (0.0-0.4) 03/30/19 07:07 Baso # 0.1 K/mm3 (0.0-0.1) 03/30/19 07:07 Seg Neutrophils % 58.6 % (40.0-70.0) 03/30/19 07:07 Seg Neutrophils # 4.4 K/mm3 (1.8-7.7) 03/30/19 07:07 PT 13.0 Sec. (12.2-14.9) 03/29/19 12:50 INR 1.01 (0.87-1.13) 03/29/19 12:50 APTT 24.7 Sec. (24.2-36.6) 03/29/19 12:50 16.8 Sec. (15.1-19.6) 03/29/19 12:50 439.71 ng/mlDDU (0-234) H 03/29/19 12:50 Sodium 139 mmol/L (137-145) 03/30/19 07:07 Potassium 3.9 mmol/L (3.6-5.0) 03/30/19 07:07 Chloride 104.4 mmol/L (98-107) 03/30/19 07:07 Carbon Dioxide 22 mmol/L (22-30) 03/30/19 07:07 17 mmol/L 03/30/19 07:07 BUN 32 mg/dL (7-17) H 03/30/19 07:07 2.6 mg/dL (0.7-1.2) H 03/30/19 07:07 Estimated GFR 22 ml/min 03/30/19 07:07 12 % 03/30/19 07:07 Glucose 172 mg/dL (65-100) H 03/30/19 07:07 POC Glucose 164 (70-105) H 03/30/19 17:33 7.9 % (4-6) H 03/29/19 22:10 Calcium 9.9 mg/dL (8.4-10.2) 03/30/19 07:07 Magnesium 1.80 mg/dL (1.7-2.3) 03/29/19 12:50 0.20 mg/dL (0.1-1.2) 03/30/19 07:07 AST 18 units/L (5-40) 03/30/19 07:07 ALT 15 units/L (7-56) 03/30/19 07:07 115 units/L (35-129) 03/30/19 07:07 155 units/L (30-135) H 03/29/19 12:50 CK-MB (CK-2) 3.8 ng/mL (0.0-4.0) 03/29/19 12:50 CK-MB (CK-2) Rel Index 2.4 (0-4) 03/29/19 12:50 0.054 ng/mL (0.00-0.029) H 03/30/19 07:07 6.7 g/dL (6.3-8.2) 03/30/19 07:07 2.8 g/dL (3.9-5) L 03/30/19 07:07 0.7 % 03/30/19 07:07 Triglycerides 167 mg/dL (2-149) H 03/29/19 12:50 Cholesterol 248 mg/dL (50-199) H 03/29/19 12:50 166 mg/dL (50-130) H 03/29/19 12:50 51 mg/dL (40-59) 03/29/19 12:50 4.86 % 03/29/19 12:50 TSH 2.400 mlU/mL (0.270-4.200) 03/29/19 12:50 Yellow (Yellow) 03/29/19 14:24 Cloudy (Clear) 03/29/19 14:24 6.0 (5.0-7.0) 03/29/19 14:24 Ur Specific [place] 1.010 (1.003-1.030) 03/29/19 14:24 >500 mg/dL (Negative) 03/29/19 14:24 50 mg/dL (Negative) 03/29/19 14:24 Neg mg/dL (Negative) 03/29/19 14:24 Sm (Negative) 03/29/19 14:24 Neg (Negative) 03/29/19 14:24 Neg (Negative) 03/29/19 14:24 < 2.0 mg/dL (<2.0) 03/29/19 14:24 Ur Leukocyte Esterase Lg (Negative) 03/29/19 14:24 > 182.0 /HPF (0.0-6.0) H 03/29/19 14:24 18.0 /HPF (0.0-6.0) 03/29/19 14:24 U Epithel Cells (Auto) < 1.0 /HPF (0-13.0) 03/29/19 14:24 4+ /HPF (Negative) 03/29/19 14:24 Hyaline Casts 3 /LPF 03/29/19 14:24 Few /HPF 03/29/19 14:24 Salicylates < 0.3 mg/dL (2.8-20.0) L 03/29/19 12:50 Acetaminophen < 5.0 ug/mL (10.0-30.0) L 03/29/19 12:50 - Imaging and Cardiology EKG: image reviewed Chest x-ray: image reviewed CT Scan - head: report reviewed, image reviewed Imaging and Cardiology: Echocardiogram Active Medications - Current Medications Current Medications: Generic Name Dose Route Start Last Admin Trade Name Freq PRN Reason Stop Dose Admin Acetaminophen 650 mg 03/29/19 22:09 Tylenol PO Q4H PRN Pain MILD(1-3)/Fever >100.5/VICTORIA Atorvastatin Calcium 40 mg 03/29/19 22:00 03/29/19 22:46 Lipitor PO 40 mg DAILY@2200 [facility] Administration Carvedilol 25 mg 03/29/19 22:00 03/30/19 09:43 Coreg PO 25 mg BID [facility] Administration Citalopram Hydrobromide 10 mg 03/30/19 10:00 03/30/19 11:58 Celexa PO 10 mg QDAY [facility] Administration Clopidogrel Bisulfate 75 mg 03/30/19 10:00 03/30/19 09:43 Plavix PO 75 mg QDAY [facility] Administration Furosemide 40 mg 03/30/19 10:00 03/30/19 09:43 Lasix PO 40 mg QDAY [facility] Administration Hydromorphone HCl 0.5 mg 03/29/19 22:09 Dilaudid IV Q3H PRN Pain , Severe (7-10) Sodium Chloride 1,000 mls @ 75 mls/hr 03/29/19 23:00 03/29/19 22:46 Nacl 0.9% 1000 Ml IV 03/30/19 23:59 75 mls/hr DIRECT [facility]ARI[facility] Administration Levetiracetam 750 mg/ Dextrose 107.5 mls @ 400 mls/hr 03/29/19 23:00 03/30/19 11:59 IV 400 mls/hr Q12HR [facility] Administration Ceftriaxone Sodium 1 gm in 50 mls @ 100 mls/hr 03/30/19 10:00 03/30/19 14:15 Rocephin/Ns 1 Gm/50 Ml IV 100 mls/hr Q24HR [facility] Administration Protocol Insulin Glargine 15 units 03/30/19 10:00 Lantus SUB-Q QAM [facility] Insulin Human Lispro 0 unit 03/30/19 07:30 03/30/19 17:44 Humalog SUB-Q 1 unit ACHS [facility] Administration Protocol Nifedipine 60 mg 03/29/19 22:00 03/30/19 09:43 Procardia Xl PO 60 mg Q12H [facility] Administration Ondansetron HCl 4 mg 03/29/19 22:09 Zofran IV Q8H PRN Nausea And Vomiting Oxycodone/Acetaminophen 1 tab 03/29/19 22:09 Percocet 5/325 PO Q6H PRN Pain, Moderate (4-6) Sodium Chloride 10 ml 03/29/19 23:00 03/30/19 09:44 Sodium Chloride Flush Syringe 10 Ml IV 10 ml BID [facility] Administration Sodium Chloride 10 ml 03/29/19 22:09 Sodium Chloride Flush Syringe 10 Ml IV PRN PRN LINE FLUSH
[2019-03-30] MEDS: LANTUS SUB-Q SCH (19:48)
[2019-03-30] MEDS ORDERED: ATIVAN IV PRN (22:00)
[2019-03-30] MEDS: NACL 0.9% 1000 ML 1,000 ML IV SCH (22:48)
[2019-03-31 08:09] LABS: Basophils # (Auto) 0.1 K/mm3 (0.0-0.1); Eosinophils # (Auto) 0.1 K/mm3 (0.0-0.4); Eosinophils % (Auto) 2.5 % (0.0-4.3); Lymphocytes # (Auto) 1.7 K/mm3 (1.2-5.4); Lymphocytes % (Auto) 33.2 % (13.4-35.0); Mean Corpuscular HGB Conc 33 % (30-34); Mean Corpuscular Volume 86 fl (79-97); Monocytes # (Auto) 0.4 K/mm3 (0.0-0.8); Platelet Count 265 K/mm3 (140-440); Red Cell Distribution Width 14.1 % (13.2-15.2)
[2019-03-31 08:16] LABS: Hematocrit 33.5 % (30.3-42.9); Hemoglobin 11.1 gm/dl (10.1-14.3)
[2019-03-31] MEDS: HumaLOG SUB-Q SCH ×4 (08:44→21:52)
--- NOTE | 2019-03-31 08:55 | Progress Note ---
<HARINI LARA - Last Filed: 03/31/19 10:45> Assessment and Plan Syncope vs Seizure UTI Anemia Dementia Hypertension Chronic kidney disease Diabetes Prior CVA on plavix therapy PVD Echocardiogram reports a normal left ventricular function, ejection fraction 60- 65%. Recommendations: Continue telemetry monitoring. Further cardiac evaluation and likely would depend on clinical course. We will consider outpatient event monitoring if needed post hospitalization. Subjective Date of service: 03/31/19 Interval history: No events on telemetry monitoring. Objective Vital Signs Temp Pulse Resp BP Pulse Ox 03/31/19 03:37 97.9 F 63 18 143/61 96 03/31/19 00:01 98.0 F 63 18 158/79 95 03/30/19 22:48 66 137/61 03/30/19 20:36 65 03/30/19 20:34 18 96 03/30/19 20:12 98.1 F 66 18 137/61 95 03/30/19 19:51 95 03/30/19 19:44 98.3 F 67 18 149/69 97 03/30/19 17:27 98.3 F 67 18 141/65 96 03/30/19 13:02 98 03/30/19 10:00 65 18 97 03/30/19 09:43 78 03/30/19 08:59 98.2 F 69 18 108/52 96 - Physical Examination General: No Apparent Distress HEENT: Positive: PERRL Neck: Positive: trachea midline Cardiac: Positive: Reg Rate and Rhythm Lungs: Positive: Decreased Breath Sounds Neuro: Positive: Grossly Intact Extremities: Absent: edema - Labs and Meds CBC 03/31/19 Range/Units 07:28 WBC 5.0 (4.5-11.0) K/mm3 RBC 3.90 (3.65-5.03) M/mm3 Hgb 11.1 D (10.1-14.3) gm/dl Hct 33.5 D (30.3-42.9) % Plt Count 265 (140-440) K/mm3 Lymph # 1.7 (1.2-5.4) K/mm3 [place] # 0.4 (0.0-0.8) K/mm3 Eos # 0.1 (0.0-0.4) K/mm3 Baso # 0.1 (0.0-0.1) K/mm3 Comprehensive Metabolic Panel 03/31/19 Range/Units 07:28 Sodium 141 (137-145) mmol/L Potassium 3.9 (3.6-5.0) mmol/L Chloride 107.6 H (98-107) mmol/L Carbon Dioxide 24 (22-30) mmol/L BUN 32 H (7-17) mg/dL Creatinine 2.5 H (0.7-1.2) mg/dL Glucose 147 H (65-100) mg/dL Calcium 10.0 (8.4-10.2) mg/dL <LAZARO BOOKER - Last Filed: 03/31/19 19:03> Assessment and Plan I have seen and evaluated the patient and agree with the assessment and plan. Echo shows normal LV function. Check TSH and FT4. Check carotid dopplers. We will consider outpatient event monitoring if needed dependent on outcome of current workup. Objective Vital Signs Temp Pulse Resp BP Pulse Ox 03/31/19 17:05 98.1 F 79 18 177/78 98 03/31/19 12:44 97 03/31/19 11:36 90/53 03/31/19 11:33 145/58 03/31/19 11:32 131/68 03/31/19 10:00 60 20 03/31/19 03:37 97.9 F 63 18 143/61 96 03/31/19 00:01 98.0 F 63 18 158/79 95 03/30/19 22:48 66 137/61 03/30/19 20:36 65 03/30/19 20:34 18 96 03/30/19 20:12 98.1 F 66 18 137/61 95 03/30/19 19:51 95 03/30/19 19:44 98.3 F 67 18 149/69 97 - Labs and Meds CBC 03/31/19 Range/Units 07:28 WBC 5.0 (4.5-11.0) K/mm3 RBC 3.90 (3.65-5.03) M/mm3 Hgb 11.1 D (10.1-14.3) gm/dl Hct 33.5 D (30.3-42.9) % Plt Count 265 (140-440) K/mm3 Lymph # 1.7 (1.2-5.4) K/mm3 [place] # 0.4 (0.0-0.8) K/mm3 Eos # 0.1 (0.0-0.4) K/mm3 Baso # 0.1 (0.0-0.1) K/mm3 Comprehensive Metabolic Panel 03/31/19 Range/Units 07:28 Sodium 141 (137-145) mmol/L Potassium 3.9 (3.6-5.0) mmol/L Chloride 107.6 H (98-107) mmol/L Carbon Dioxide 24 (22-30) mmol/L BUN 32 H (7-17) mg/dL Creatinine 2.5 H (0.7-1.2) mg/dL Glucose 147 H (65-100) mg/dL Calcium 10.0 (8.4-10.2) mg/dL
[2019-03-31] MEDS ORDERED: NACL 0.9% 1000 ML 1,000 ML IV SCH (09:00)
--- NOTE | 2019-03-31 09:10 | Consultation ---
History of Present Illness - Reason for Consult Consult date: 03/31/19 chronic renal failure - History of Present Illness The patient is a 68 YO Female, who is followed by our service in the office for CKD, with history significant for HTN, DM type 2, CVA, Dementia and CKD stage 4 who presented to [facility] ED with complaint of weakness, frequent falls and frequently loosing consciousness. Patient passed out in the ED in the waiting room, witnessed only by her youngest daughter. Patient is a poor historian and no family member at the bedside. She denies any symptoms at this time. Patient was admitted for possible seizures. She was found to have creatinine of 2.6 on admission. Nephrology was consulted for further evaluation. Past History Past Medical History: hypertension, hyperlipidemia, renal failure, stroke, other (HLD) Social history: no significant social history Family history: no significant family history Medications and Allergies Allergies Allergy/AdvReac Type Severity Reaction Status Date / Time No Known Allergies Allergy Unverified 06/23/16 14:03 Home Medications Medication Instructions Recorded Confirmed Last Taken Type AtorvaSTATin [Lipitor] 40 mg PO DAILY 03/29/19 03/29/19 Unknown History Carvedilol [Coreg] 25 mg PO BID 03/29/19 03/29/19 03/29/19 History Citalopram [celeXA] 10 mg PO QDAY 03/29/19 03/29/19 03/29/19 History Clopidogrel [Plavix] 75 mg PO QDAY 03/29/19 03/29/19 03/29/19 History Furosemide [Lasix TAB] 40 mg PO QDAY 03/29/19 03/29/19 03/29/19 History Insulin Glargine,Hum.rec.anlog 15 units SUB-Q QAM 03/29/19 03/29/19 03/29/19 History [Basaglar Kwikpen U-100] NIFEdipine [Nifedipine ER] 60 mg PO Q12H 03/29/19 03/29/19 03/29/19 History Active Meds: Active Medications Acetaminophen (Tylenol) 650 mg PO Q4H PRN PRN Reason: Pain MILD(1-3)/Fever >100.5/VICTORIA Atorvastatin Calcium (Lipitor) 40 mg PO DAILY@2200 [facility] Last Admin: 03/30/19 22:48 Dose: 40 mg Documented by: Carvedilol (Coreg) 25 mg PO BID [facility] Last Admin: 03/30/19 22:48 Dose: 25 mg Documented by: Citalopram Hydrobromide (Celexa) 10 mg PO QDAY [facility] Last Admin: 03/30/19 11:58 Dose: 10 mg Documented by: Clopidogrel Bisulfate (Plavix) 75 mg PO QDAY [facility] Last Admin: 03/30/19 09:43 Dose: 75 mg Documented by: Furosemide (Lasix) 40 mg PO QDAY [facility] Last Admin: 03/30/19 09:43 Dose: 40 mg Documented by: Hydromorphone HCl (Dilaudid) 0.5 mg IV Q3H PRN PRN Reason: Pain , Severe (7-10) Ceftriaxone Sodium (Rocephin/Ns 1 Gm/50 Ml) 1 gm in 50 mls @ 100 mls/hr IV Q24HR [facility]; Protocol Last Admin: 03/30/19 14:15 Dose: 100 mls/hr Documented by: Sodium Chloride (Nacl 0.9% 1000 Ml) 1,000 mls @ 75 mls/hr IV DIRECT [facility] Insulin Glargine (Lantus) [facility] [place] Admin: 03/30/19 19:48 Dose: Not Given Documented by: Insulin Human Lispro (Humalog) 0 unit SUB-Q [facility]; Protocol Last Admin: 03/30/19 22:51 Dose: 2 unit Documented by: Lorazepam (Ativan) 1 mg IV ONCE PRN PRN Reason: Seizures Nifedipine (Procardia Xl) 60 mg PO Q12H [facility] Last Admin: 03/30/19 22:48 Dose: 60 mg Documented by: Ondansetron HCl (Zofran) 4 mg IV Q8H PRN PRN Reason: Nausea And Vomiting Oxycodone/Acetaminophen (Percocet 5/325) 1 tab PO Q6H PRN PRN Reason: Pain, Moderate (4-6) Sodium Chloride (Sodium Chloride Flush Syringe 10 Ml) 10 ml IV BID [facility] Last Admin: 03/30/19 22:49 Dose: 10 ml Documented by: Sodium Chloride (Sodium Chloride Flush Syringe 10 Ml) 10 ml IV PRN PRN PRN Reason: LINE FLUSH Review of Systems ROS unobtainable: due to mental status Exam - Vital Signs Vital signs: Vital Signs Resp Pulse Ox 13 98 03/29/19 12:19 03/29/19 12:19 - General Appearance General appearance: well-developed, well-nourished, appears stated age, other (no distress) EENT: ATNC, PERRL, vision intact, hearing diminished Neck: Present: neck supple, trachea midline Respiratory: Clear to Ascultation Heart: regular, S1S2, no murmurs Gastrointestinal: Present: normoactive bowel sounds. Absent: tenderness, distended Integumentary: no rash, warm and dry Neurologic: no focal deficit, no asterixis, confused, disoriented Musculoskeletal: Present: other (no edema) Results - Lab Results 03/31/19 07:28 03/31/19 07:28 Most recent lab results Calcium 10.0 mg/dL (8.4-10.2) 03/31/19 07:28 Magnesium 1.80 mg/dL (1.7-2.3) 03/29/19 12:50 Assessment and Plan 1. CKD stage 4: Patient with known h/o CKD stage 4. CKD likely secondary to hypertensive nephropathy. Renal function is around her baseline. Monitor renal function. Avoid nephrotoxic agents. Meds dosage based on GFR. 2. FEN: Monitor lytes. 3. Syncope vs Seizure: Followed by Neuro and Cards. Started on Keppra. 4. Anemia: 5. Orthostatic hypotension. 6. UTI. 7. DM type 2. 8. Cognitive impairment: Dementia per daughter.
--- NOTE | 2019-03-31 11:12 | Magnetic Resonance Report ---
MR brain wo con INDICATION / CLINICAL INFORMATION: 68 years Female; possible seizure. TECHNIQUE: Multiplanar, multisequence MR images of the brain were obtained. COMPARISON: None available. FINDINGS: BRAIN / INTRACRANIAL CONTENTS: Chronic, moderately sized branch MCA infarct seen in the left parietal region. Cortical laminar necrosis noted. Otherwise, no acute ischemia, acute hemorrhage, mass effect, midline shift, or hydrocephalus. Mild c erebral atrophy noted. Mild hippocampal atrophy noted as well. There are mild to moderate areas of increased signal intensity on FLAIR imaging in the white matter o f the cerebral hemispheres. These are nonspecific findings and may be related to microangiopathy (hyp ertension, diabetes, atherosclerosis), given the patient's age. Findings are also seen in the middle cerebellar peduncles bilaterally-right greater than left. Mild pontine disease noted. CRANIOCERVICAL JUNCTION: No significant abnormality. VASCULAR FLOW-VOIDS: No significant abnormality. ORBITS: No significant abnormality of visualized orbits. SINUSES / MASTOIDS: Moderate mucosal thickening seen in the ethmoids. There is mild mucosal thickenin g in the frontal sinuses and maxillary antra. ADDITIONAL FINDINGS: None. IMPRESSION: 1. No focal mass, hemorrhage, hydrocephalus, or acute ischemia. Signer Name: Demetrius Alas MD, III Signed: 03/31/2019 11:08 AM Workstation Name: [id number]
[2019-03-31] MEDS: PLAVIX PO SCH (11:41)
[2019-03-31] MEDS: LASIX PO SCH (11:41)
[2019-03-31] MEDS: LANTUS SUB-Q SCH (11:41)
[2019-03-31] MEDS: celeXA PO SCH (11:41)
[2019-03-31] MEDS: SODIUM CHLORIDE FLUSH SYRINGE 10 ML IV SCH ×2 (11:42→21:52)
[2019-03-31] MEDS: COREG PO SCH ×2 (11:42→21:52)
[2019-03-31] MEDS: PROCARDIA XL PO SCH ×2 (11:48→21:53)
[2019-03-31] MEDS: ROCEPHIN/NS 1 GM/50 ML 1 GM/50 ML BAG IV SCH (11:48)
--- NOTE | 2019-03-31 17:52 | Electroencephalogram Report ---
Electroencephalogram EEG Date of exam: 03/31/19 History: 68 y/o woman w/ a h/o stroke, DM, HTN, HLD, p/w syncope and possible seizure. Impression: Impression: Normal waking EEG. Description: The waking background shows an appropriate organization with well-defined anterior posterior voltage and frequency gradients. Posteriorly, there is a well-developed alpha rhythm of [9] Hz which is symmetrical and bilaterally reactive. Anteriorly, there is a pattern of lower voltage and slightly irregular theta and beta range frequencies. Patient did not sleep during EEG. Photic stimulation done, without photic drive noted. Throughout, the recording there are no epileptiform abnormalities, focal or lateralizing features, or significant interhemispheric findings. Artifact noted in F8 lead.
--- NOTE | 2019-03-31 18:20 | Progress Note ---
Assessment and Plan Patient is a 68-year-old woman with a history of end-stage renal disease not on hemodialysis, diabetes, hypertension, history of stroke with residual cognitive deficits and right-sided weakness and tremors, who presents with loss of consci ousness and convulsions. According the patient's clinical findings, it is possible that the patient has had a seizure. Alternatively, the patient may have had a syncopal event. The altered mental status is likely due to underlying UTI which was discovered on urinalysis. Plan: 1. Loss of consciousness/possible seizure: EEG did not show any epileptiform activity. MRI brain showed previous occipito-parietal stroke, but no acute abnormalities. It is possible that the patient may have had a single seizure in the setting of UTI with history of stroke. Discussed at length with daughter, Natalie (medical POA), regarding starting AED, and daughter decided that she would like to start Keppra at this time. Will start patient on keppra 500mg BID. Ordered ativan 1mg IV if patient has a seizure while inpatient. Please page neurology stat if patient has a seizure. 2. Orthostatic hypotension: Orthostatic vital signs positive yesterday. Recommend further management per primary team and cardiology, as it is likely that orthostatic hypotension has caused recent episodes of syncope. 3. UTI: Continue to treat UTI per primary team. 4. History of stroke: Cont. statin and plavix. -Recommend for patient to follow up with neurology outpatient for continuity of care for possible seizures, as well as dementia and h/o stroke. - Plan was discussed with the patient's daughter and patient. - Recommend for patient not to drive due to possible seizures, as well as h/o dementia. Patient and family understood and accepted this. - Will sign off. Please call with any questions. Allen Winters MD Neurology - Patient Problems (1) Metabolic encephalopathy Current Visit: Yes Status: Acute (2) Convulsion Current Visit: Yes Status: Acute (3) Syncope Current Visit: Yes Status: Acute Qualifiers: Syncope type: unspecified Qualified Code(s): R55 - Syncope and collapse Subjective Date of service: 03/31/19 Principal diagnosis: Syncope Interval history: No acute events overnight. Orthostatic vital signs showed orthostatic hy potension. Objective - Vital Sign Vital Signs - 12hr 03/31/19 03/31/19 10:00 12:44 Pulse Rate 60 Respiratory 20 Rate O2 Sat by Pulse 97 Oximetry - General Apperance Constitutional: comfortable - EENT EENT: ATNC, PERRL, mucous membranes moist - Respiratory Respiratory: lungs clear, normal breath sounds - Cardiovascular Cardiovascular: regular rate, normal S1, normal S2 Extremities: no peripheral edema bilat, no clubbing, cyanosis - Gastrointestinal Gastrointestinal: normoactive bowel sounds, soft, non-tender - Integumentary Integumentary: normal - Neurologic Cranial nerve examination: PERRL, EOMI, V1/V2/V3 grossly intact, face symmetric, tongue midline, intact shoulder shrug, other (Decreased vision in right visual field) Speech examination: intact Motor examination - right side: 5/5: biceps, triceps, bacteriology technician, hip flexors, knee extensors, dorsiflexion, plantarflexion Motor examination - left side: 5/5: biceps, triceps, bacteriology technician, hip flexors, knee extensors, dorsiflexion, plantarflexion Detailed sensory examination: intact, light touch Reflex and gait examination: other (deferred gait) Reflexes: 2+: ankle, bicep, knee, tricep Cerebellar examination: other (b/l intact FTN and HTS) - Musculoskeletal Musculoskeletal: no fluid collection, no pain, normal range of motion - Psychiatric Psychiatric: mood/affect appropriate (alert, oriented to name, age, minus year, month. Follows 2-step commands. ) - Laboratory Findings CBC and BMP: 03/31/19 07:28 03/31/19 07:28 Abnormal Lab Findings: Abnormal Labs 03/29/19 03/29/19 03/29/19 12:50 12:50 12:50 RBC 2.59 L Hgb 7.7 L Hct 22.4 L [place] % (Auto) Baso % (Auto) 2.0 H D-Dimer 439.71 H Sodium Chloride BUN Creatinine Glucose POC Glucose Hemoglobin A1c Calcium Total Creatine Kinase 155 H Troponin T 0.054 H Albumin Triglycerides 167 H Cholesterol 248 H LDL Cholesterol Direct 166 H Urine WBC (Auto) Salicylates Acetaminophen 03/29/19 03/29/19 03/29/19 12:50 12:50 14:24 RBC Hgb Hct [place] % (Auto) Baso % (Auto) D-Dimer Sodium Chloride BUN Creatinine Glucose POC Glucose Hemoglobin A1c Calcium Total Creatine Kinase Troponin T Albumin Triglycerides Cholesterol LDL Cholesterol Direct Urine WBC (Auto) > 182.0 H Salicylates < 0.3 L Acetaminophen < 5.0 L 03/29/19 03/29/19 03/29/19 16:08 20:08 22:10 RBC Hgb Hct [place] % (Auto) Baso % (Auto) D-Dimer Sodium 133 L Chloride BUN 30 H Creatinine 2.6 H Glucose 216 H POC Glucose 269 H Hemoglobin A1c 7.9 H Calcium 10.3 H Total Creatine Kinase Troponin T Albumin Triglycerides Cholesterol LDL Cholesterol Direct Urine WBC (Auto) Salicylates Acetaminophen 03/30/19 03/30/19 03/30/19 07:07 07:07 09:05 RBC 2.76 L Hgb 7.9 L Hct 23.7 L [place] % (Auto) 8.4 H Baso % (Auto) D-Dimer Sodium Chloride BUN 32 H Creatinine 2.6 H Glucose 172 H POC Glucose 154 H Hemoglobin A1c Calcium Total Creatine Kinase Troponin T 0.054 H Albumin 2.8 L Triglycerides Cholesterol LDL Cholesterol Direct Urine WBC (Auto) Salicylates Acetaminophen 03/30/19 03/30/19 03/31/19 17:33 22:57 07:28 RBC Hgb Hct [place] % (Auto) Baso % (Auto) D-Dimer Sodium Chloride 107.6 H BUN 32 H Creatinine 2.5 H Glucose 147 H POC Glucose 164 H 188 H Hemoglobin A1c Calcium Total Creatine Kinase Troponin T Albumin Triglycerides Cholesterol LDL Cholesterol Direct Urine WBC (Auto) Salicylates Acetaminophen 03/31/19 03/31/19 03/31/19 11:50 13:01 16:02 RBC Hgb Hct [place] % (Auto) Baso % (Auto) D-Dimer Sodium Chloride BUN Creatinine Glucose POC Glucose 224 H 230 H 158 H Hemoglobin A1c Calcium Total Creatine Kinase Troponin T Albumin Triglycerides Cholesterol LDL Cholesterol Direct Urine WBC (Auto) Salicylates Acetaminophen
--- NOTE | 2019-03-31 18:54 | Progress Note ---
Assessment and Plan Assessment and plan: Assessment and plan 68-year-old with history of weakness frequent falls and unsteady gait syncope presented with what appeared to be seizure. #1 syncope exact etiology at this particular time unknown. Potential seizure especially with a past history of CVA a UTI. Appreciate neurology note. Daughter wants to start Keppra 500 twice a day. We'll follow up outpatient with neurology.. She EEG is unremarkable. . Additional workup for syncope has been unremarkable. Awaiting orthostatics. Underlying dementia is also on my differential. #2 anemia will rule out GI bleed obtain Hemoccult blood stool GI consult. No anemia so needed this time stable. 3 Acute on Chronic Kidney Disease Also Could Be a Potential for Making Patient Very Weak and Unsteady on Gait. Electrolytes Appear to Be Fairly Well Controlled. Obtain nephrology consult. Creatinine. To be at baseline 30 and 2.6 at this particular time. 4 orthostatic hypotension. We'll encourage by mouth intake as well as increase fluids gently. A bradley at echocardiogram normal ejection fraction of 60%. #4 insulin-dependent diabetes mellitus we'll continue to treat with sliding scale. Patient has poor appetite at this particular time. We'll not be too aggressive to prevent hypoglycemia. We'll treat with Lantus at 15 units and titrate accordingly. #5 hyperlipidemia LDL 166 we'll add statin. #6 depression continue antidepressant medications. #7 past history of coronary artery disease continue aspirin and Plavix as mentioned above. #8 minimal cognitive impairment. Workup of underlying dementia may be warranted. #9 moderate malnutrition IV fluids as well as dietitian consult and control of diabetes. History Interval history: Patient 68-year-old that presents with weakness. Patient has a history of frequent falls unsteady gait, syncope dementia and unwitnessed seizure. Acco rding to family patient has had multiple syncopal episodes. CT scan presently negative cervical spine CT negative chest x-ray unremarkable and chest angiogram unremarkable for PE. It was initially thought the patient may have had a seizure was started on IV Keppra upon presentation. Patient able to lay in bed flat alert to me that she feels okay no seizures. Full conversation. No further seizures hospital course uncomplicated over p.m. Hospitalist Physical - Constitutional Vitals: Temp Pulse Resp BP Pulse Ox 98.1 F 79 18 177/78 98 03/31/19 17:05 03/31/19 17:05 03/31/19 17:05 03/31/19 17:05 03/31/19 17:05 General appearance: Present: no acute distress - EENT Eyes: Present: PERRL, EOM intact ENT: hearing intact, clear oral mucosa, dentition normal, oropharyngeal erythema, no poor dentition, no thrush, no ulcerations - Respiratory Respiratory: bilateral: CTA - Cardiovascular Rhythm: regular - Extremities Extremities: no ischemia, pulses intact, pulses symmetrical, No edema, normal te mperature, normal color Peripheral Pulses: within normal limits - Abdominal General gastrointestinal: soft, non-tender, non-distended, normal bowel sounds - Integumentary Integumentary: Present: clear, warm, dry - Psychiatric Psychiatric: appropriate mood/affect, intact judgment & insight, memory intact Results - Labs CBC & Chem 7: 03/31/19 07:28 03/31/19 07:28 Labs: Laboratory Last Values WBC 5.0 K/mm3 (4.5-11.0) 03/31/19 07:28 RBC 3.90 M/mm3 (3.65-5.03) 03/31/19 07:28 Hgb 11.1 gm/dl (10.1-14.3) D 03/31/19 07:28 Hct 33.5 % (30.3-42.9) D 03/31/19 07:28 MCV 86 fl (79-97) 03/31/19 07:28 MCH 28 pg (28-32) 03/31/19 07:28 MCHC 33 % (30-34) 03/31/19 07:28 RDW 14.1 % (13.2-15.2) 03/31/19 07:28 Plt Count 265 K/mm3 (140-440) 03/31/19 07:28 Lymph % (Auto) 33.2 % (13.4-35.0) 03/31/19 07:28 [place] % (Auto) 7.0 % (0.0-7.3) 03/31/19 07:28 Eos % (Auto) 2.5 % (0.0-4.3) 03/31/19 07:28 Baso % (Auto) [place] 03/31/19 07:28 Lymph # 1.7 K/mm3 (1.2-5.4) 03/31/19 07:28 [place] # 0.4 K/mm3 (0.0-0.8) 03/31/19 07:28 Eos # 0.1 K/mm3 (0.0-0.4) 03/31/19 07:28 Baso # 0.1 K/mm3 (0.0-0.1) 03/31/19 07:28 Seg Neutrophils % 55.8 % (40.0-70.0) 03/31/19 07:28 Seg Neutrophils # 2.8 K/mm3 (1.8-7.7) 03/31/19 07:28 PT 13.0 Sec. (12.2-14.9) 03/29/19 12:50 INR 1.01 (0.87-1.13) 03/29/19 12:50 APTT 24.7 Sec. (24.2-36.6) 03/29/19 12:50 16.8 Sec. (15.1-19.6) 03/29/19 12:50 439.71 ng/mlDDU (0-234) H 03/29/19 12:50 Sodium 141 mmol/L (137-145) 03/31/19 07:28 Potassium 3.9 mmol/L (3.6-5.0) 03/31/19 07:28 Chloride 107.6 mmol/L (98-107) H 03/31/19 07:28 Carbon Dioxide 24 mmol/L (22-30) 03/31/19 07:28 13 mmol/L 03/31/19 07:28 BUN 32 mg/dL (7-17) H 03/31/19 07:28 2.5 mg/dL (0.7-1.2) H 03/31/19 07:28 Estimated GFR 23 ml/min 03/31/19 07:28 13 % 03/31/19 07:28 Glucose 147 mg/dL (65-100) H 03/31/19 07:28 POC Glucose 158 (70-105) H 03/31/19 16:02 7.9 % (4-6) H 03/29/19 22:10 Calcium 10.0 mg/dL (8.4-10.2) 03/31/19 07:28 Magnesium 1.80 mg/dL (1.7-2.3) 03/29/19 12:50 0.20 mg/dL (0.1-1.2) 03/30/19 07:07 AST 18 units/L (5-40) 03/30/19 07:07 ALT 15 units/L (7-56) 03/30/19 07:07 115 units/L (35-129) 03/30/19 07:07 155 units/L (30-135) H 03/29/19 12:50 CK-MB (CK-2) 3.8 ng/mL (0.0-4.0) 03/29/19 12:50 CK-MB (CK-2) Rel Index 2.4 (0-4) 03/29/19 12:50 0.054 ng/mL (0.00-0.029) H 03/30/19 07:07 6.7 g/dL (6.3-8.2) 03/30/19 07:07 2.8 g/dL (3.9-5) L 03/30/19 07:07 0.7 % 03/30/19 07:07 Triglycerides 167 mg/dL (2-149) H 03/29/19 12:50 Cholesterol 248 mg/dL (50-199) H 03/29/19 12:50 166 mg/dL (50-130) H 03/29/19 12:50 51 mg/dL (40-59) 03/29/19 12:50 4.86 % 03/29/19 12:50 TSH 2.400 mlU/mL (0.270-4.200) 03/29/19 12:50 Yellow (Yellow) 03/29/19 14:24 Cloudy (Clear) 03/29/19 14:24 6.0 (5.0-7.0) 03/29/19 14:24 Ur Specific [place] 1.010 (1.003-1.030) 03/29/19 14:24 >500 mg/dL (Negative) 03/29/19 14:24 50 mg/dL (Negative) 03/29/19 14:24 Neg mg/dL (Negative) 03/29/19 14:24 Sm (Negative) 03/29/19 14:24 Neg (Negative) 03/29/19 14:24 Neg (Negative) 03/29/19 14:24 < 2.0 mg/dL (<2.0) 03/29/19 14:24 Ur Leukocyte Esterase Lg (Negative) 03/29/19 14:24 > 182.0 /HPF (0.0-6.0) H 03/29/19 14:24 18.0 /HPF (0.0-6.0) 03/29/19 14:24 U Epithel Cells (Auto) < 1.0 /HPF (0-13.0) 03/29/19 14:24 4+ /HPF (Negative) 03/29/19 14:24 Hyaline Casts 3 /LPF 03/29/19 14:24 Few /HPF 03/29/19 14:24 Salicylates < 0.3 mg/dL (2.8-20.0) L 03/29/19 12:50 Acetaminophen < 5.0 ug/mL (10.0-30.0) L 03/29/19 12:50 Active Medications - Current Medications Current Medications: Generic Name Dose Route Start Last Admin Trade Name Erick PRN Reason Stop Dose Admin Acetaminophen 650 mg 03/29/19 22:09 Tylenol PO Q4H PRN Pain MILD(1-3)/Fever >100.5/VICTORIA Atorvastatin Calcium 40 mg 03/29/19 22:00 03/30/19 22:48 Lipitor PO 40 mg DAILY@2200 [facility] Administration Carvedilol 25 mg 03/29/19 22:00 03/31/19 11:42 Coreg PO 25 mg BID [facility] Administration Citalopram Hydrobromide 10 mg 03/30/19 10:00 03/31/19 11:41 Celexa PO 10 mg QDAY [facility] Administration Clopidogrel Bisulfate 75 mg 03/30/19 10:00 03/31/19 11:41 Plavix PO 75 mg QDAY [facility] Administration Furosemide 40 mg 03/30/19 10:00 03/31/19 11:41 Lasix PO 40 mg QDAY [facility] Administration Hydromorphone HCl 0.5 mg 03/29/19 22:09 Dilaudid IV Q3H PRN Pain , Severe (7-10) Ceftriaxone Sodium 1 gm in 50 mls @ 100 mls/hr 03/30/19 10:00 03/31/19 11:48 Rocephin/Ns 1 Gm/50 Ml IV 100 mls/hr Q24HR [facility] Administration Protocol Sodium Chloride 1,000 mls @ 75 mls/hr 03/31/19 09:00 Nacl 0.9% 1000 Ml IV DIRECT [facility] Insulin Glargine 15 units 03/30/19 10:00 03/31/19 11:41 Lantus SUB-Q 15 units QAM [facility] Administration Insulin Human Lispro 0 unit 03/30/19 07:30 03/31/19 17:35 Humalog SUB-Q 2 unit ACHS [facility] Administration Protocol Levetiracetam 500 mg 03/31/19 22:00 Keppra PO BID [facility] Lorazepam 1 mg 03/30/19 22:00 Ativan IV ONCE PRN Seizures Nifedipine 60 mg 03/29/19 22:00 03/31/19 11:48 Procardia Xl PO 60 mg Q12H [facility] Administration Ondansetron HCl 4 mg 03/29/19 22:09 Zofran IV Q8H PRN Nausea And Vomiting Oxycodone/Acetaminophen 1 tab 03/29/19 22:09 Percocet 5/325 PO Q6H PRN Pain, Moderate (4-6) Sodium Chloride 10 ml 03/29/19 23:00 03/31/19 11:42 Sodium Chloride Flush Syringe 10 Ml IV 10 ml BID [facility] Administration Sodium Chloride 10 ml 03/29/19 22:09 Sodium Chloride Flush Syringe 10 Ml IV PRN PRN LINE FLUSH
[2019-03-31] MEDS: NACL 0.9% 1000 ML 1,000 ML IV SCH (19:49)
[2019-03-31] MEDS: KEPPRA PO SCH (21:52)
[2019-04-01] MEDS ORDERED: LEXISCAN IV ONE ×2 (07:23→07:32)
[2019-04-01] MEDS: HumaLOG SUB-Q SCH ×4 (08:16→23:12)
[2019-04-01 08:53] LABS: Calcium 9.9 mg/dL (8.4-10.2)
--- NOTE | 2019-04-01 09:47 | Progress Note ---
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 Plan: No further cardiac workup indicated. As an outpatient we will recommend a 30 day event monitor. Subjective Date of service: 04/01/19 Principal diagnosis: Syncope Interval history: No events on telemetry monitoring. Objective Vital Signs Temp Pulse Resp BP Pulse Ox 04/01/19 08:16 97.6 F 64 16 140/73 95 04/01/19 03:34 98.0 F 73 18 128/65 97 03/31/19 23:20 97.9 F 73 20 188/90 96 03/31/19 21:52 74 173/69 03/31/19 20:20 18 97 03/31/19 19:21 74 03/31/19 19:16 98.2 F 74 19 173/69 100 03/31/19 17:05 98.1 F 79 18 177/78 98 03/31/19 12:44 97 03/31/19 11:36 90/53 03/31/19 11:33 145/58 03/31/19 11:32 131/68 03/31/19 10:00 60 20 - Physical Examination General: No Apparent Distress HEENT: Positive: PERRL Neck: Positive: trachea midline Cardiac: Positive: Reg Rate and Rhythm Lungs: Positive: Decreased Breath Sounds Neuro: Positive: Grossly Intact Extremities: Absent: edema - Labs and Meds Comprehensive Metabolic Panel 04/01/19 Range/Units Unknown Sodium 135 L (137-145) mmol/L Potassium 4.3 (3.6-5.0) mmol/L Chloride 105.2 (98-107) mmol/L Carbon Dioxide 17 L D (22-30) mmol/L BUN 33 H (7-17) mg/dL Creatinine 2.3 H (0.7-1.2) mg/dL Glucose 139 H (65-100) mg/dL Calcium 9.9 (8.4-10.2) mg/dL - Imaging and Cardiology EKG: image reviewed
[2019-04-01] MEDS: ROCEPHIN/NS 1 GM/50 ML 1 GM/50 ML BAG IV SCH (10:06)
[2019-04-01] MEDS: KEPPRA PO SCH ×2 (10:07→23:12)
[2019-04-01] MEDS: LASIX PO SCH (10:07)
[2019-04-01] MEDS: PLAVIX PO SCH (10:07)
[2019-04-01] MEDS: COREG PO SCH ×2 (10:08→23:11)
[2019-04-01] MEDS: SODIUM CHLORIDE FLUSH SYRINGE 10 ML IV SCH ×2 (10:09→23:13)
[2019-04-01] MEDS: celeXA PO SCH (10:09)
[2019-04-01] MEDS: LANTUS SUB-Q SCH (10:16)
[2019-04-01] MEDS: PROCARDIA XL PO SCH ×2 (10:16→23:11)
--- NOTE | 2019-04-01 10:22 | Progress Note ---
Assessment and Plan 1. CKD stage 4: Patient with known h/o CKD stage 4. CKD likely secondary to hypertensive nephropathy. Renal function is around her baseline. Monitor renal function. Avoid nephrotoxic agents. Meds dosage based on GFR. 2. FEN: Monitor lytes. 3. Syncope vs Seizure: Followed by Neuro and Cards. On Keppra. 4. Anemia: 5. Orthostatic hypotension. 6. UTI. 7. DM type 2. 8. Cognitive impairment: Likely Dementia. Subjective Date of service: 04/01/19 Principal diagnosis: Syncope Interval history: Patient was seen and examined at the bedside. Doing ok. Objective - Vital Signs Vital signs: Vital Signs - 12hr 03/31/19 04/01/19 04/01/19 23:20 03:34 08:16 Temperature 97.9 F 98.0 F 97.6 F Pulse Rate 73 73 64 Respiratory 20 18 16 Rate Blood Pressure 188/90 128/65 140/73 O2 Sat by Pulse 96 97 95 Oximetry 04/01/19 10:08 Temperature Pulse Rate 64 Respiratory Rate Blood Pressure 140/73 O2 Sat by Pulse Oximetry - General Appearance General appearance: well-developed, well-nourished, appears stated age, other (no distress) EENT: ATNC, PERRL, hearing intact, vision intact Neck: supple Respiratory: Present: Clear to Ascultation Cardiology: regular, S1S2, no murmurs Gastrointestinal: normoactive bowel sounds, no tenderness, no distended Integumentary: no rash, warm and dry Neurologic: no focal deficit, no asterixis, confused, disoriented Musculoskeletal: other (no edema) Psychiatric: cooperative - Lab 04/01/19 12:01 04/01/19 Unknown Most recent lab results Calcium 9.9 mg/dL (8.4-10.2) 04/01/19 Unknown Phosphorus 4.10 mg/dL (2.5-4.5) 04/01/19 04:08 Magnesium 1.80 mg/dL (1.7-2.3) 03/29/19 12:50 Medications & Allergies - Medications Allergies/Adverse Reactions: Allergies No Known Allergies Allergy (Unverified 06/23/16 14:03) Home Medications: Home Medications Medication Instructions Recorded Confirmed Last Taken Type AtorvaSTATin [Lipitor] 40 mg PO DAILY 03/29/19 03/29/19 Unknown History Carvedilol [Coreg] 25 mg PO BID 03/29/19 03/29/19 03/29/19 History Citalopram [celeXA] 10 mg PO QDAY 03/29/19 03/29/19 03/29/19 History Clopidogrel [Plavix] 75 mg PO QDAY 03/29/19 03/29/19 03/29/19 History Furosemide [Lasix TAB] 40 mg PO QDAY 03/29/19 03/29/19 03/29/19 History Insulin Glargine,Hum.rec.anlog 15 units SUB-Q QAM 03/29/19 03/29/19 03/29/19 History [Basaglar Kwikpen U-100] NIFEdipine [Nifedipine ER] 60 mg PO Q12H 03/29/19 03/29/19 03/29/19 History Active Medications: Generic Name Dose Route Start Last Admin Trade Name Freq PRN Reason Stop Dose Admin Acetaminophen 650 mg 03/29/19 22:09 Tylenol PO Q4H PRN Pain MILD(1-3)/Fever >100.5/VICTORIA Atorvastatin Calcium 40 mg 03/29/19 22:00 03/31/19 21:52 Lipitor PO 40 mg DAILY@2200 ZACARIAS Administration Carvedilol 25 mg 03/29/19 22:00 04/01/19 10:08 Coreg PO 25 mg BID ZACARIAS Administration Citalopram Hydrobromide 10 mg 03/30/19 10:00 04/01/19 10:09 Celexa PO 10 mg QDAY ZACARIAS Administration Clopidogrel Bisulfate 75 mg 03/30/19 10:00 04/01/19 10:07 Plavix PO 75 mg QDAY ZACARIAS Administration Furosemide 40 mg 03/30/19 10:00 04/01/19 10:07 Lasix PO 40 mg QDAY ZACARIAS Administration Hydromorphone HCl 0.5 mg 03/29/19 22:09 Dilaudid IV Q3H PRN Pain , Severe (7-10) Ceftriaxone Sodium 1 gm in 50 mls @ 100 mls/hr 03/30/19 10:00 04/01/19 10:06 Rocephin/Ns 1 Gm/50 Ml IV 100 mls/hr Q24HR ZACARIAS Administration Protocol Sodium Chloride 1,000 mls @ 60 mls/hr 03/31/19 19:00 03/31/19 19:49 Nacl 0.9% 1000 Ml IV 100 mls/hr DIRECT ZACARIAS Administration Insulin Glargine 15 units 03/30/19 10:00 03/31/19 11:41 Lantus SUB-Q 15 units QAM ZACARIAS Administration Insulin Human Lispro 0 unit 03/30/19 07:30 04/01/19 08:16 Humalog SUB-Q Not Given ACHS [facility] Protocol Levetiracetam 500 mg 03/31/19 22:00 04/01/19 10:07 Keppra PO 500 mg BID ZACARIAS Administration Lorazepam 1 mg 03/30/19 22:00 Ativan IV ONCE PRN Seizures Nifedipine 60 mg 03/29/19 22:00 04/01/19 10:16 Procardia Xl PO 60 mg Q12H ZACARIAS Administration Ondansetron HCl 4 mg 03/29/19 22:09 Zofran IV Q8H PRN Nausea And Vomiting Oxycodone/Acetaminophen 1 tab 03/29/19 22:09 Percocet 5/325 PO Q6H PRN Pain, Moderate (4-6) Sodium Chloride 10 ml 03/29/19 23:00 04/01/19 10:09 Sodium Chloride Flush Syringe 10 Ml IV 10 ml BID ZACARIAS Administration Sodium Chloride 10 ml 03/29/19 22:09 Sodium Chloride Flush Syringe 10 Ml IV PRN PRN LINE FLUSH
[2019-04-01 12:37] LABS: Hemoglobin 10.6 gm/dl (10.1-14.3); Mean Corpuscular HGB Conc 33 % (30-34); Mean Corpuscular Volume 86 fl (79-97); Platelet Count 270 K/mm3 (140-440); Red Blood Count 3.73 M/mm3 (3.65-5.03)
--- NOTE | 2019-04-01 13:50 | Progress Note ---
Assessment and Plan Assessment and plan: Assessment and plan 68-year-old with history of weakness frequent falls and unsteady gait syncope presented with what appeared to be seizure. No further evidence of seizure. #1 syncope exact etiology at this particular time unknown. Potential seizure especially with a past history of CVA a UTI. . Daughter wants to start Keppra 500 twice a day. We'll follow up outpatient with neurology.. She EEG is unremarkable. . Additional workup for syncope has been unremarkable. Follow-up orthostatics improved with fluid can probably discontinue fluid at this time. Underlying dementia is also on my differential. Patient to have outpatient Holter monitor can follow with cardiology. #2 anemia will rule out GI bleed obtain Hemoccult blood stool GI consult. No anemia so needed this time stable. 3 Acute on Chronic Kidney Disease Also Could Be a Potential for Making Patient Very Weak and Unsteady on Gait. Electrolytes Appear to Be Fairly Well Controlled. Obtain nephrology consult. Creatinine. To be at baseline 30 and 2.6 at this particular time. At this particular time appears to be more chronic in nature. Renal following. 4 orthostatic hypotension. We'll encourage by mouth intake as well as increase fluids gently. Has improved with repeat orthostatics after IV fluid hydration. A bradley at echocardiogram normal ejection fraction of 60%. #4 insulin-dependent diabetes mellitus we'll continue to treat with sliding scale. Patient has poor appetite at this particular time. We'll not be too aggressive to prevent hypoglycemia. We'll treat with Lantus at 15 units and titrate accordingly. #5 hyperlipidemia LDL 166 we'll add statin. #6 depression continue antidepressant medications. #7 past history of coronary artery disease continue aspirin and Plavix as mentioned above. #8 minimal cognitive impairment. Workup of underlying dementia may be warranted. Can be done as outpatient. #9 moderate malnutrition IV fluids as well as dietitian consult and control of diabetes. History Interval history: Patient doing well. Looks much better. Clinically improved able to talk speak make needs known. Hospital course complicated by Nares positive for methicillin-resistant staph aureus. No evidence of infection or sepsis at this time. Hospitalist Physical - Constitutional Vitals: Temp Pulse Resp BP Pulse Ox 97.6 F 64 16 140/73 95 04/01/19 08:16 04/01/19 10:08 04/01/19 08:16 04/01/19 10:08 04/01/19 08:16 General appearance: Present: no acute distress - EENT Eyes: Present: PERRL, EOM intact ENT: hearing intact, clear oral mucosa, dentition normal - Neck Neck: Present: supple, normal ROM - Respiratory Respiratory effort: normal Respiratory: bilateral: CTA - Cardiovascular Rhythm: regular - Extremities Extremities: no ischemia, pulses intact, pulses symmetrical, normal temperature Extremity abnormal: edema Peripheral Pulses: within normal limits - Abdominal General gastrointestinal: soft, non-tender, non-distended, normal bowel sounds, no hepatomegaly, no splenomegaly, no mass - Integumentary Integumentary: Present: clear, warm, dry - Psychiatric Psychiatric: appropriate mood/affect, memory intact, other (poor judgment minimal cognitive impairment) - Neurologic Neurologic: CNII-XII intact, moves all extremities Results - Labs CBC & Chem 7: 04/01/19 12:01 04/01/19 Unknown Labs: Laboratory Last Values WBC 4.8 K/mm3 (4.5-11.0) 04/01/19 12:01 RBC 3.73 M/mm3 (3.65-5.03) 04/01/19 12:01 Hgb 10.6 gm/dl (10.1-14.3) 04/01/19 12:01 Hct 32.0 % (30.3-42.9) 04/01/19 12:01 MCV 86 fl (79-97) 04/01/19 12:01 MCH 29 pg (28-32) 04/01/19 12:01 MCHC 33 % (30-34) 04/01/19 12:01 RDW 14.0 % (13.2-15.2) 04/01/19 12:01 Plt Count 270 K/mm3 (140-440) 04/01/19 12:01 Lymph % (Auto) Band And Cuff Cutter 04/01/19 12:01 [place] % (Auto) Band And Cuff Cutter 04/01/19 12:01 Eos % (Auto) Band And Cuff Cutter 04/01/19 12:01 Baso % (Auto) Band And Cuff Cutter 04/01/19 12:01 Lymph # Band And Cuff Cutter 04/01/19 12:01 [place] # Band And Cuff Cutter 04/01/19 12:01 Eos # Band And Cuff Cutter 04/01/19 12:01 Baso # Band And Cuff Cutter 04/01/19 12:01 Seg Neutrophils % Band And Cuff Cutter 04/01/19 12:01 Seg Neutrophils # Band And Cuff Cutter 04/01/19 12:01 PT 13.0 Sec. (12.2-14.9) 03/29/19 12:50 INR 1.01 (0.87-1.13) 03/29/19 12:50 APTT 24.7 Sec. (24.2-36.6) 03/29/19 12:50 16.8 Sec. (15.1-19.6) 03/29/19 12:50 439.71 ng/mlDDU (0-234) H 03/29/19 12:50 Sodium 135 mmol/L (137-145) L 04/01/19 Unknown Potassium 4.3 mmol/L (3.6-5.0) 04/01/19 Unknown Chloride 105.2 mmol/L (98-107) 04/01/19 Unknown Carbon Dioxide 17 mmol/L (22-30) L D 04/01/19 Unknown 17 mmol/L 04/01/19 Unknown BUN 33 mg/dL (7-17) H 04/01/19 Unknown 2.3 mg/dL (0.7-1.2) H 04/01/19 Unknown Estimated GFR 25 ml/min 04/01/19 Unknown 14 % 04/01/19 Unknown Glucose 139 mg/dL (65-100) H 04/01/19 Unknown POC Glucose 232 (70-105) H 04/01/19 11:58 7.9 % (4-6) H 03/29/19 22:10 Calcium 9.9 mg/dL (8.4-10.2) 04/01/19 Unknown Phosphorus 4.10 mg/dL (2.5-4.5) 04/01/19 04:08 Magnesium 1.80 mg/dL (1.7-2.3) 03/29/19 12:50 0.20 mg/dL (0.1-1.2) 03/30/19 07:07 AST 18 units/L (5-40) 03/30/19 07:07 ALT 15 units/L (7-56) 03/30/19 07:07 115 units/L (35-129) 03/30/19 07:07 155 units/L (30-135) H 03/29/19 12:50 CK-MB (CK-2) 3.8 ng/mL (0.0-4.0) 03/29/19 12:50 CK-MB (CK-2) Rel Index 2.4 (0-4) 03/29/19 12:50 0.054 ng/mL (0.00-0.029) H 03/30/19 07:07 6.7 g/dL (6.3-8.2) 03/30/19 07:07 2.8 g/dL (3.9-5) L 03/30/19 07:07 0.7 % 03/30/19 07:07 Triglycerides 167 mg/dL (2-149) H 03/29/19 12:50 Cholesterol 248 mg/dL (50-199) H 03/29/19 12:50 166 mg/dL (50-130) H 03/29/19 12:50 51 mg/dL (40-59) 03/29/19 12:50 4.86 % 03/29/19 12:50 TSH 2.400 mlU/mL (0.270-4.200) 03/29/19 12:50 Yellow (Yellow) 03/29/19 14:24 Cloudy (Clear) 03/29/19 14:24 6.0 (5.0-7.0) 03/29/19 14:24 Ur Specific [place] 1.010 (1.003-1.030) 03/29/19 14:24 >500 mg/dL (Negative) 03/29/19 14:24 50 mg/dL (Negative) 03/29/19 14:24 Neg mg/dL (Negative) 03/29/19 14:24 Sm (Negative) 03/29/19 14:24 Neg (Negative) 03/29/19 14:24 Neg (Negative) 03/29/19 14:24 < 2.0 mg/dL (<2.0) 03/29/19 14:24 Ur Leukocyte Esterase Lg (Negative) 03/29/19 14:24 > 182.0 /HPF (0.0-6.0) H 03/29/19 14:24 18.0 /HPF (0.0-6.0) 03/29/19 14:24 U Epithel Cells (Auto) < 1.0 /HPF (0-13.0) 03/29/19 14:24 4+ /HPF (Negative) 03/29/19 14:24 Hyaline Casts 3 /LPF 03/29/19 14:24 Few /HPF 03/29/19 14:24 Salicylates < 0.3 mg/dL (2.8-20.0) L 03/29/19 12:50 Acetaminophen < 5.0 ug/mL (10.0-30.0) L 03/29/19 12:50 Active Medications - Current Medications Current Medications: Generic Name Dose Route Start Last Admin Trade Name Freq PRN Reason Stop Dose Admin Acetaminophen 650 mg 03/29/19 22:09 Tylenol PO Q4H PRN Pain MILD(1-3)/Fever >100.5/VICTORIA Atorvastatin Calcium 40 mg 03/29/19 22:00 03/31/19 21:52 Lipitor PO 40 mg DAILY@2200 ZACARIAS Administration Carvedilol 25 mg 03/29/19 22:00 04/01/19 10:08 Coreg PO 25 mg BID ZACARIAS Administration Citalopram Hydrobromide 10 mg 03/30/19 10:00 04/01/19 10:09 Celexa PO 10 mg QDAY ZACARIAS Administration Clopidogrel Bisulfate 75 mg 03/30/19 10:00 04/01/19 10:07 Plavix PO 75 mg QDAY ZACARIAS Administration Furosemide 40 mg 03/30/19 10:00 04/01/19 10:07 Lasix PO 40 mg QDAY ZACARIAS Administration Hydromorphone HCl 0.5 mg 03/29/19 22:09 Dilaudid IV Q3H PRN Pain , Severe (7-10) Ceftriaxone Sodium 1 gm in 50 mls @ 100 mls/hr 03/30/19 10:00 04/01/19 10:06 Rocephin/Ns 1 Gm/50 Ml IV 100 mls/hr Q24HR ZACARIAS Administration Protocol Sodium Chloride 1,000 mls @ 60 mls/hr 03/31/19 19:00 03/31/19 19:49 Nacl 0.9% 1000 Ml IV 100 mls/hr DIRECT ZACARIAS Administration Insulin Glargine 15 units 03/30/19 10:00 04/01/19 10:16 Lantus SUB-Q 15 units QAM ZACARIAS Administration Insulin Human Lispro 0 unit 03/30/19 07:30 04/01/19 12:48 Humalog SUB-Q 3 unit ACHS ZACARIAS Administration Protocol Levetiracetam 500 mg 03/31/19 22:00 04/01/19 10:07 Keppra PO 500 mg BID ZACARIAS Administration Lorazepam 1 mg 03/30/19 22:00 Ativan IV ONCE PRN Seizures Nifedipine 60 mg 03/29/19 22:00 04/01/19 10:16 Procardia Xl PO 60 mg Q12H ZACARIAS Administration Ondansetron HCl 4 mg 03/29/19 22:09 Zofran IV Q8H PRN Nausea And Vomiting Oxycodone/Acetaminophen 1 tab 03/29/19 22:09 Percocet 5/325 PO Q6H PRN Pain, Moderate (4-6) Sodium Chloride 10 ml 03/29/19 23:00 04/01/19 10:09 Sodium Chloride Flush Syringe 10 Ml IV 10 ml BID ZACARIAS Administration Sodium Chloride 10 ml 03/29/19 22:09 Sodium Chloride Flush Syringe 10 Ml IV PRN PRN LINE FLUSH
[2019-04-01] MEDS: NACL 0.9% 1000 ML 1,000 ML IV SCH (18:23)
[2019-04-01] MEDS ORDERED: ALUM-MAG HYDROX-SIMETH 200-200-20MG/5ML PO PRN (21:19)
[2019-04-01] MEDS: SENOKOT S PO PRN (23:11)
[2019-04-02 07:01] LABS: Calcium 9.5 mg/dL (8.4-10.2)
--- NOTE | 2019-04-02 08:36 | Progress Note ---
Assessment and Plan 1. CKD stage 4: Patient with known h/o CKD stage 4. CKD likely secondary to hypertensive nephropathy. Renal function is around her baseline. Monitor renal function. Avoid nephrotoxic agents. Meds dosage based on GFR. 2. FEN: Monitor lytes. 3. Syncope vs Seizure: Followed by Neuro and Cards. On Keppra. 4. Anemia: 5. Orthostatic hypotension. 6. UTI. 7. DM type 2. 8. Cognitive impairment: Likely Dementia. Subjective Date of service: 04/02/19 Principal diagnosis: Syncope Interval history: Patient was seen and examined at the bedside. Doing ok. Objective - Vital Signs Vital signs: Vital Signs - 12hr 04/01/19 04/01/19 04/02/19 22:21 23:11 00:23 Temperature 98.2 F Pulse Rate 71 71 Pulse Rate [ 71 Apical] Respiratory 18 18 Rate Blood Pressure 153/73 166/67 O2 Sat by Pulse 95 95 Oximetry 04/02/19 04/02/19 04:17 08:00 Temperature 98.1 F 97.7 F Pulse Rate 73 Pulse Rate [ Apical] Respiratory 18 18 Rate Blood Pressure 129/61 115/63 O2 Sat by Pulse 93 Oximetry - General Appearance General appearance: well-developed, well-nourished, appears stated age, other (no distress) EENT: ATNC, PERRL, hearing intact, vision intact Neck: supple Respiratory: Present: Clear to Ascultation Cardiology: regular, S1S2, no murmurs Gastrointestinal: normoactive bowel sounds, no tenderness, no distended Integumentary: no rash, warm and dry Neurologic: no focal deficit, no asterixis, confused, disoriented Musculoskeletal: other (no edema) Psychiatric: cooperative - Lab 04/01/19 12:01 04/02/19 05:32 Most recent lab results Calcium 9.5 mg/dL (8.4-10.2) 04/02/19 05:32 Phosphorus 4.10 mg/dL (2.5-4.5) 04/01/19 04:08 Magnesium 1.80 mg/dL (1.7-2.3) 03/29/19 12:50 Medications & Allergies - Medications Allergies/Adverse Reactions: Allergies No Known Allergies Allergy (Unverified 06/23/16 14:03) Home Medications: Home Medications Medication Instructions Recorded Confirmed Last Taken Type AtorvaSTATin [Lipitor] 40 mg PO DAILY 03/29/19 03/29/19 Unknown History Carvedilol [Coreg] 25 mg PO BID 03/29/19 03/29/19 03/29/19 History Citalopram [celeXA] 10 mg PO QDAY 03/29/19 03/29/19 03/29/19 History Clopidogrel [Plavix] 75 mg PO QDAY 03/29/19 03/29/19 03/29/19 History Furosemide [Lasix TAB] 40 mg PO QDAY 03/29/19 03/29/19 03/29/19 History Insulin Glargine,Hum.rec.anlog 15 units SUB-Q QAM 03/29/19 03/29/19 03/29/19 History [Basaglar Familiaikpen U-100] NIFEdipine [Nifedipine ER] 60 mg PO Q12H 03/29/19 03/29/19 03/29/19 History Active Medications: Generic Name Dose Route Start Last Admin Trade Name Freq PRN Reason Stop Dose Admin Acetaminophen 650 mg 03/29/19 22:09 Tylenol PO Q4H PRN Pain MILD(1-3)/Fever >100.5/VICTORIA Al Hydrox/Mg Hydrox/Simethicone 30 ml 04/01/19 21:19 Alum-Mag Hydrox-Simeth 098-368-95ez/5ml PO Q8H PRN Indigestion Atorvastatin Calcium 40 mg 03/29/19 22:00 04/01/19 23:12 Lipitor PO 40 mg DAILY@2200 ZACARIAS Administration Carvedilol 25 mg 03/29/19 22:00 04/01/19 23:11 Coreg PO 25 mg BID ZACARIAS Administration Citalopram Hydrobromide 10 mg 03/30/19 10:00 04/01/19 10:09 Celexa PO 10 mg QDAY ZACARIAS Administration Clopidogrel Bisulfate 75 mg 03/30/19 10:00 04/01/19 10:07 Plavix PO 75 mg QDAY ZACARIAS Administration Furosemide 40 mg 03/30/19 10:00 04/01/19 10:07 Lasix PO 40 mg QDAY ZACARIAS Administration Hydromorphone HCl 0.5 mg 03/29/19 22:09 Dilaudid IV Q3H PRN Pain , Severe (7-10) Ceftriaxone Sodium 1 gm in 50 mls @ 100 mls/hr 03/30/19 10:00 04/01/19 10:06 Rocephin/Ns 1 Gm/50 Ml IV 100 mls/hr Q24HR ZACARIAS Administration Protocol Sodium Chloride 1,000 mls @ 60 mls/hr 03/31/19 19:00 04/01/19 18:23 Nacl 0.9% 1000 Ml IV 60 mls/hr DIRECT ZACARIAS Administration Insulin Glargine 15 units 03/30/19 10:00 04/01/19 10:16 Lantus SUB-Q 15 units QAM ZACARIAS Administration Insulin Human Lispro 0 unit 03/30/19 07:30 04/01/19 23:12 Humalog SUB-Q 2 unit ACHS ZACARIAS Administration Protocol Levetiracetam 500 mg 03/31/19 22:00 04/01/19 23:12 Keppra PO 500 mg BID ZACARIAS Administration Lorazepam 1 mg 03/30/19 22:00 Ativan IV ONCE PRN Seizures Nifedipine 60 mg 03/29/19 22:00 04/01/19 23:11 Procardia Xl PO 60 mg Q12H ZACARIAS Administration Ondansetron HCl 4 mg 03/29/19 22:09 Zofran IV Q8H PRN Nausea And Vomiting Oxycodone/Acetaminophen 1 tab 03/29/19 22:09 Percocet 5/325 PO Q6H PRN Pain, Moderate (4-6) Senna/Docusate Sodium 2 tab 04/01/19 21:18 04/01/19 23:11 Senokot S PO 2 tab QHS PRN Administration Laxative Effect Sodium Chloride 10 ml 03/29/19 23:00 04/01/19 23:13 Sodium Chloride Flush Syringe 10 Ml IV 10 ml BID ZACARIAS Administration Sodium Chloride 10 ml 03/29/19 22:09 Sodium Chloride Flush Syringe 10 Ml IV PRN PRN LINE FLUSH
--- NOTE | 2019-04-02 08:38 | Progress Note ---
Assessment and Plan Assessment and plan: Syncope. Echocardiogram revealed EF of 60-65% with normal systolic function. Carotid Dopplers negative for stenosis. Patient to have outpatient Holter monitor can follow with cardiology. ? Seizure disorder. EEG normal. Continue Keppra twice a day. MRI negative. CKD stage IV. Patient with known h/o CKD stage 4. CKD likely secondary to hypertensive nephropathy. Renal function is around her baseline. Monitor renal function. Avoid nephrotoxic agents. Meds dosage based on GFR. Diabetes mellitus type 2. Continue Accu-Cheks and sliding scale. UTI. Continue antibiotics. Follow up culture results. Anemia. H&H appears stable. Follow-up CBC in morning. Alzheimer's dementia. History of coronary artery disease. Continue aspirin and Plavix. Hyperlipidemia. Continue statin. Deconditioning. PT evaluation. History Interval history: No new issues overnight. Hospitalist Physical - Constitutional Vitals: Temp Pulse Resp BP Pulse Ox 97.7 F 73 18 115/63 93 04/02/19 08:00 04/02/19 04:17 04/02/19 08:00 04/02/19 08:00 04/02/19 04:17 General appearance: Present: no acute distress - EENT Eyes: Present: PERRL, EOM intact ENT: hearing intact, clear oral mucosa, dentition normal - Neck Neck: Present: supple, normal ROM - Respiratory Respiratory effort: normal Respiratory: bilateral: CTA - Cardiovascular Rhythm: regular Heart Sounds: Present: S1 & S2. Absent: gallop, rub - Extremities Extremities: no ischemia, No edema, Full ROM - Abdominal General gastrointestinal: soft, non-tender, non-distended, normal bowel sounds - Integumentary Integumentary: Present: clear, warm, dry - Neurologic Neurologic: CNII-XII intact, moves all extremities Results - Labs CBC & Chem 7: 04/01/19 12:01 04/02/19 05:32 Labs: Laboratory Last Values WBC 4.8 K/mm3 (4.5-11.0) 04/01/19 12:01 RBC 3.73 M/mm3 (3.65-5.03) 04/01/19 12:01 Hgb 10.6 gm/dl (10.1-14.3) 04/01/19 12:01 Hct 32.0 % (30.3-42.9) 04/01/19 12:01 MCV 86 fl (79-97) 04/01/19 12:01 MCH 29 pg (28-32) 04/01/19 12:01 MCHC 33 % (30-34) 04/01/19 12:01 RDW 14.0 % (13.2-15.2) 04/01/19 12:01 Plt Count 270 K/mm3 (140-440) 04/01/19 12:01 Lymph % (Auto) Travel Writer 04/01/19 12:01 [place] % (Auto) Travel Writer 04/01/19 12:01 Eos % (Auto) Travel Writer 04/01/19 12:01 Baso % (Auto) Travel Writer 04/01/19 12:01 Lymph # Travel Writer 04/01/19 12:01 [place] # Travel Writer 04/01/19 12:01 Eos # Travel Writer 04/01/19 12:01 Baso # Travel Writer 04/01/19 12:01 Seg Neutrophils % Travel Writer 04/01/19 12:01 Seg Neutrophils # Travel Writer 04/01/19 12:01 PT 13.0 Sec. (12.2-14.9) 03/29/19 12:50 INR 1.01 (0.87-1.13) 03/29/19 12:50 APTT 24.7 Sec. (24.2-36.6) 03/29/19 12:50 16.8 Sec. (15.1-19.6) 03/29/19 12:50 439.71 ng/mlDDU (0-234) H 03/29/19 12:50 Sodium 143 mmol/L (137-145) D 04/02/19 05:32 Potassium 3.6 mmol/L (3.6-5.0) 04/02/19 05:32 Chloride 108.5 mmol/L (98-107) H 04/02/19 05:32 Carbon Dioxide 24 mmol/L (22-30) D 04/02/19 05:32 14 mmol/L 04/02/19 05:32 BUN 35 mg/dL (7-17) H 04/02/19 05:32 2.6 mg/dL (0.7-1.2) H 04/02/19 05:32 Estimated GFR 22 ml/min 04/02/19 05:32 13 % 04/02/19 05:32 Glucose 80 mg/dL (65-100) 04/02/19 05:32 POC Glucose 91 (70-105) 04/02/19 08:07 7.9 % (4-6) H 03/29/19 22:10 Calcium 9.5 mg/dL (8.4-10.2) 04/02/19 05:32 Phosphorus 4.10 mg/dL (2.5-4.5) 04/01/19 04:08 Magnesium 1.80 mg/dL (1.7-2.3) 03/29/19 12:50 0.20 mg/dL (0.1-1.2) 03/30/19 07:07 AST 18 units/L (5-40) 03/30/19 07:07 ALT 15 units/L (7-56) 03/30/19 07:07 115 units/L (35-129) 03/30/19 07:07 155 units/L (30-135) H 03/29/19 12:50 CK-MB (CK-2) 3.8 ng/mL (0.0-4.0) 03/29/19 12:50 CK-MB (CK-2) Rel Index 2.4 (0-4) 03/29/19 12:50 0.054 ng/mL (0.00-0.029) H 03/30/19 07:07 6.7 g/dL (6.3-8.2) 03/30/19 07:07 2.8 g/dL (3.9-5) L 03/30/19 07:07 0.7 % 03/30/19 07:07 Triglycerides 167 mg/dL (2-149) H 03/29/19 12:50 Cholesterol 248 mg/dL (50-199) H 03/29/19 12:50 166 mg/dL (50-130) H 03/29/19 12:50 51 mg/dL (40-59) 03/29/19 12:50 4.86 % 03/29/19 12:50 TSH 2.400 mlU/mL (0.270-4.200) 03/29/19 12:50 Yellow (Yellow) 03/29/19 14:24 Cloudy (Clear) 03/29/19 14:24 6.0 (5.0-7.0) 03/29/19 14:24 Ur Specific [place] 1.010 (1.003-1.030) 03/29/19 14:24 >500 mg/dL (Negative) 03/29/19 14:24 50 mg/dL (Negative) 03/29/19 14:24 Neg mg/dL (Negative) 03/29/19 14:24 Sm (Negative) 03/29/19 14:24 Neg (Negative) 03/29/19 14:24 Neg (Negative) 03/29/19 14:24 < 2.0 mg/dL (<2.0) 03/29/19 14:24 Ur Leukocyte Esterase Lg (Negative) 03/29/19 14:24 > 182.0 /HPF (0.0-6.0) H 03/29/19 14:24 18.0 /HPF (0.0-6.0) 03/29/19 14:24 U Epithel Cells (Auto) < 1.0 /HPF (0-13.0) 03/29/19 14:24 4+ /HPF (Negative) 03/29/19 14:24 Hyaline Casts 3 /LPF 03/29/19 14:24 Few /HPF 03/29/19 14:24 Salicylates < 0.3 mg/dL (2.8-20.0) L 03/29/19 12:50 Acetaminophen < 5.0 ug/mL (10.0-30.0) L 03/29/19 12:50 Active Medications - Current Medications Current Medications: Generic Name Dose Route Start Last Admin Trade Name Freq PRN Reason Stop Dose Admin Acetaminophen 650 mg 03/29/19 22:09 Tylenol PO Q4H PRN Pain MILD(1-3)/Fever >100.5/VICTORIA Al Hydrox/Mg Hydrox/Simethicone 30 ml 04/01/19 21:19 Alum-Mag Hydrox-Simeth 098-299-67ro/5ml PO Q8H PRN Indigestion Atorvastatin Calcium 40 mg 03/29/19 22:00 04/01/19 23:12 Lipitor PO 40 mg DAILY@2200 ZACARIAS Administration Carvedilol 25 mg 03/29/19 22:00 04/01/19 23:11 Coreg PO 25 mg BID ZACARIAS Administration Citalopram Hydrobromide 10 mg 03/30/19 10:00 04/01/19 10:09 Celexa PO 10 mg QDAY ZACARIAS Administration Clopidogrel Bisulfate 75 mg 03/30/19 10:00 04/01/19 10:07 Plavix PO 75 mg QDAY ZACARIAS Administration Furosemide 40 mg 03/30/19 10:00 04/01/19 10:07 Lasix PO 40 mg QDAY ZACARIAS Administration Hydromorphone HCl 0.5 mg 03/29/19 22:09 Dilaudid IV Q3H PRN Pain , Severe (7-10) Ceftriaxone Sodium 1 gm in 50 mls @ 100 mls/hr 03/30/19 10:00 04/01/19 10:06 Rocephin/Ns 1 Gm/50 Ml IV 100 mls/hr Q24HR ZACARIAS Administration Protocol Sodium Chloride 1,000 mls @ 60 mls/hr 03/31/19 19:00 04/01/19 18:23 Nacl 0.9% 1000 Ml IV 60 mls/hr DIRECT ZACARIAS Administration Insulin Glargine 15 units 03/30/19 10:00 04/01/19 10:16 Lantus SUB-Q 15 units QAM ZACARIAS Administration Insulin Human Lispro 0 unit 03/30/19 07:30 04/01/19 23:12 Humalog SUB-Q 2 unit ACHS ZACARIAS Administration Protocol Levetiracetam 500 mg 03/31/19 22:00 04/01/19 23:12 Keppra PO 500 mg BID ZACARIAS Administration Lorazepam 1 mg 03/30/19 22:00 Ativan IV ONCE PRN Seizures Nifedipine 60 mg 03/29/19 22:00 04/01/19 23:11 Procardia Xl PO 60 mg Q12H ZACARIAS Administration Ondansetron HCl 4 mg 03/29/19 22:09 Zofran IV Q8H PRN Nausea And Vomiting Oxycodone/Acetaminophen 1 tab 03/29/19 22:09 Percocet 5/325 PO Q6H PRN Pain, Moderate (4-6) Senna/Docusate Sodium 2 tab 04/01/19 21:18 04/01/19 23:11 Senokot S PO 2 tab QHS PRN Administration Laxative Effect Sodium Chloride 10 ml 03/29/19 23:00 04/01/19 23:13 Sodium Chloride Flush Syringe 10 Ml IV 10 ml BID ZACARIAS Administration Sodium Chloride 10 ml 03/29/19 22:09 Sodium Chloride Flush Syringe 10 Ml IV PRN PRN LINE FLUSH
[2019-04-02] MEDS: HumaLOG SUB-Q SCH ×4 (08:51→23:09)
--- NOTE | 2019-04-02 09:05 | Progress Note ---
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 Plan: As an outpatient we will recommend a 30 day event monitor. Otherwise, conservative cardiac management. Subjective Date of service: 04/02/19 Principal diagnosis: Syncope Interval history: Patient is resting in bed comfortably. No events on telemetry monitoring. Objective Vital Signs Temp Pulse Pulse Resp BP Pulse Ox 04/02/19 08:00 97.7 F 18 115/63 04/02/19 04:17 98.1 F 73 18 129/61 93 04/02/19 00:23 98.2 F 71 18 166/67 95 04/01/19 23:11 71 153/73 04/01/19 22:21 71 18 95 04/01/19 20:31 98.6 F 71 20 153/73 95 04/01/19 19:12 72 04/01/19 16:12 98.9 F 69 16 140/63 94 04/01/19 11:13 97.7 F 68 16 134/61 97 04/01/19 10:08 64 140/73 04/01/19 10:00 62 - Physical Examination General: No Apparent Distress HEENT: Positive: PERRL Neck: Positive: trachea midline Cardiac: Positive: Reg Rate and Rhythm Lungs: Positive: Decreased Breath Sounds Neuro: Positive: Grossly Intact Extremities: Absent: edema - Labs and Meds CBC 04/01/19 Range/Units 12:01 WBC 4.8 (4.5-11.0) K/mm3 RBC 3.73 (3.65-5.03) M/mm3 Hgb 10.6 (10.1-14.3) gm/dl Hct 32.0 (30.3-42.9) % Plt Count 270 (140-440) K/mm3 Lymph # Pillowcase Cleaner [place] # Pillowcase Cleaner Eos # Pillowcase Cleaner Baso # Pillowcase Cleaner Comprehensive Metabolic Panel 04/01/19 04/02/19 Range/Units Unknown 05:32 Sodium 135 L 143 D (137-145) mmol/L Potassium 4.3 3.6 (3.6-5.0) mmol/L Chloride 105.2 108.5 H (98-107) mmol/L Carbon Dioxide 17 L D 24 D (22-30) mmol/L BUN 33 H 35 H (7-17) mg/dL Creatinine 2.3 H 2.6 H (0.7-1.2) mg/dL Glucose 139 H 80 (65-100) mg/dL Calcium 9.9 9.5 (8.4-10.2) mg/dL - Imaging and Cardiology EKG: image reviewed
[2019-04-02] MEDS: PLAVIX PO SCH (10:28)
[2019-04-02] MEDS: KEPPRA PO SCH ×2 (10:28→23:09)
[2019-04-02] MEDS: ROCEPHIN/NS 1 GM/50 ML 1 GM/50 ML BAG IV SCH (10:29)
[2019-04-02] MEDS: COREG PO SCH ×2 (10:30→23:09)
[2019-04-02] MEDS: LASIX PO SCH (10:30)
[2019-04-02] MEDS: celeXA PO SCH (10:31)
[2019-04-02] MEDS: PROCARDIA XL PO SCH ×2 (10:38→23:09)
[2019-04-02] MEDS: SODIUM CHLORIDE FLUSH SYRINGE 10 ML IV SCH ×2 (10:39→23:10)
[2019-04-02] MEDS: LANTUS SUB-Q SCH (10:39)
[2019-04-02] MEDS: NACL 0.9% 1000 ML 1,000 ML IV SCH (18:43)
[2019-04-02] MEDS: SENOKOT S PO PRN (23:09)
[2019-04-03 06:35] LABS: Calcium 9.8 mg/dL (8.4-10.2)
[2019-04-03] MEDS: HumaLOG SUB-Q SCH ×3 (08:28→16:46)
[2019-04-03] MEDS: LASIX PO SCH (10:24)
[2019-04-03] MEDS: PROCARDIA XL PO SCH (10:24)
[2019-04-03] MEDS: COREG PO SCH (10:24)
[2019-04-03] MEDS: celeXA PO SCH (10:24)
[2019-04-03] MEDS: PLAVIX PO SCH (10:24)
[2019-04-03] MEDS: ROCEPHIN/NS 1 GM/50 ML 1 GM/50 ML BAG IV SCH (10:24)
[2019-04-03] MEDS: LANTUS SUB-Q SCH (10:25)
[2019-04-03] MEDS: SODIUM CHLORIDE FLUSH SYRINGE 10 ML IV SCH (10:25)
[2019-04-03] MEDS: KEPPRA PO SCH (10:25)
--- NOTE | 2019-04-03 10:41 | Discharge Summary ---
Providers - Providers Date of Admission: 03/29/19 16:32 Date of discharge: 04/03/19 Attending physician: UZIEL TAVAREZ 03/29/19 12:36 Consult to Physician [CONS] Urgent Comment: DR ZINA BUSTAMANTE W/TELE NEURO @[id number] Consulting Provider: RAHUL ROBLEDO Physician Instructions: Reason For Exam: sz vs syncope 03/29/19 22:14 Consult to Physician [CONS] Routine Comment: Consulting Provider: NITO MARTINEZ Physician Instructions: Reason For Exam: seizures --new onset 03/29/19 22:20 Consult to Physician [CONS] Routine Comment: Consulting Provider: ALVARADO AGOSTO Physician Instructions: Reason For Exam: syncope 03/31/19 07:55 Consult to Physician [CONS] Routine Comment: Consulting Provider: SIENNA GU Physician Instructions: Reason For Exam: renal failure 04/02/19 08:37 Physical Therapy Evaluation and Treat [CONS] Routine Comment: Reason For Exam: unsteady gait [facility] Reason for admission: sz Condition: Fair Hospital course: 68-year-old with history of weakness frequent falls and unsteady gait, syncope presented with what appeared to be seizure. No further evidence of seizure during the hospitalization. Daughter wanted to start Keppra 500 twice a day which was initiated. EEG is unremarkable. Additional workup for syncope has been unremarkable. Follow-up orthostatics improved with fluid. Underlying dementia was also on differential. Patient to have outpatient Holter monitor and can follow with cardiology. The patient was also seen by nephrology for Acute on Chronic Kidney Disease. Nephrology reported patient with known history of CKD stage 4. CKD likely secondary to hypertensive nephropathy. Nephrology reported Renal function is around her baseline. Echocardiogram was completed and revealed normal ejection fraction of 60%. Cardiology and neurology felt that no further workup was needed. The patient was also noted to have UTI with urine culture no growth. Patient was treated with Rocephin adequately. Patient will be discharged home with the prescription for Keppra and is to follow-up with cardiology for Holter monitor. Dedicated discharge time 35 minutes. Disposition: - TO HOME OR SELFCARE Time spent for discharge: 35 - Discharge Diagnoses (1) ESEQUIEL (acute kidney injury) Status: Acute (2) Convulsion Status: Acute (3) Metabolic encephalopathy Status: Acute (4) Seizure disorder Status: Acute (5) Syncope Status: Acute Qualifiers: Syncope type: unspecified Qualified Code(s): R55 - Syncope and collapse (6) HLD (hyperlipidemia) Status: Chronic Qualifiers: Hyperlipidemia type: mixed hyperlipidemia Qualified Code(s): E78.2 - Mixed hyperlipidemia (7) HTN (hypertension) Status: Chronic Qualifiers: Hypertension type: essential hypertension Qualified Code(s): I10 - Essential (primary) hypertension (8) IDDM (insulin dependent diabetes mellitus) Status: Chronic (9) UTI (urinary tract infection) Status: Acute Core Measure Documentation - Palliative Care Palliative Care/ Comfort Measures: Not Applicable - Core Measures Any of the following diagnoses?: none Exam - Constitutional Vitals: Temp Pulse Resp BP Pulse Ox 98.9 F 72 18 127/61 90 04/03/19 08:02 04/03/19 08:02 04/03/19 08:02 04/03/19 08:02 04/03/19 08:02 General appearance: Present: no acute distress, well-nourished - EENT Eyes: Present: PERRL ENT: hearing intact, clear oral mucosa - Neck Neck: Present: supple, normal ROM - Respiratory Respiratory effort: normal Respiratory: bilateral: CTA - Cardiovascular Heart Sounds: Present: S1 & S2. Absent: rub, click - Extremities Extremities: pulses symmetrical, No edema Peripheral Pulses: within normal limits - Abdominal General gastrointestinal: Present: soft, non-tender, non-distended, normal bowel sounds Female genitourinary: Present: normal - Integumentary Integumentary: Present: clear, warm, dry - Musculoskeletal Musculoskeletal: gait normal, strength equal bilaterally - Psychiatric Psychiatric: appropriate mood/affect, intact judgment & insight - Neurologic Neurologic: CNII-XII intact, moves all extremities Plan Activity: advance as tolerated Weight Bearing Status: Weight Bear as Tolerated Diet: diabetic Follow up with: KIRKLAND HANG HERRMANN MD [Primary Care Provider] - 3-5 Days SIENNA GU MD [Staff Physician] - 7 Days ALVARADO AGOSTO MD [Staff Physician] - 7 Days Prescriptions: Insulin Glargine,Hum.rec.anlog [Basaglar Kwikpen U-100] 15 units SUB-Q QAM 30 Days insuln.pen Citalopram [celeXA] 10 mg PO QDAY #30 tablet Carvedilol [Coreg] 25 mg PO BID #60 tablet levETIRAcetam [Keppra TAB] 500 mg PO BID #60 tablet Furosemide [Lasix TAB] 40 mg PO QDAY #30 tablet AtorvaSTATin [Lipitor] 40 mg PO DAILY #30 tablet NIFEdipine [Nifedipine ER] 60 mg PO Q12H #60 tablet.er Clopidogrel [Plavix] 75 mg PO QDAY #30 tablet
--- NOTE | 2019-04-03 10:43 | Progress Note ---
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 Plan: As an outpatient we will recommend a 30 day event monitor. Otherwise, conservative cardiac management. Subjective Date of service: 04/03/19 Principal diagnosis: Syncope Interval history: No acute events Objective Vital Signs Temp Pulse Pulse Pulse Resp BP BP 04/03/19 08:02 98.9 F 72 18 127/61 04/03/19 04:39 98.7 F 73 18 120/58 04/03/19 00:02 99.0 F 71 18 140/63 04/02/19 23:09 73 147/68 04/02/19 22:17 73 18 04/02/19 20:45 72 04/02/19 20:08 98.7 F 73 18 147/68 04/02/19 17:00 77 150/74 04/02/19 16:52 99.0 F 73 18 129/59 Pulse Ox 04/03/19 08:02 90 04/03/19 04:39 92 04/03/19 00:02 91 04/02/19 23:09 04/02/19 22:17 95 04/02/19 20:45 04/02/19 20:08 95 04/02/19 17:00 04/02/19 16:52 97 - Physical Examination General: No Apparent Distress HEENT: Positive: PERRL Neck: Positive: trachea midline Cardiac: Positive: Reg Rate and Rhythm Lungs: Positive: clear to auscultation Neuro: Positive: Grossly Intact Abdomen: Positive: Soft, Active Bowel Sounds Extremities: Absent: edema - Labs and Meds Comprehensive Metabolic Panel 04/03/19 Range/Units 04:50 Sodium 143 (137-145) mmol/L Potassium 3.7 (3.6-5.0) mmol/L Chloride 110.3 H (98-107) mmol/L Carbon Dioxide 22 (22-30) mmol/L BUN 36 H (7-17) mg/dL Creatinine 2.6 H (0.7-1.2) mg/dL Glucose 86 (65-100) mg/dL Calcium 9.8 (8.4-10.2) mg/dL - Imaging and Cardiology EKG: image reviewed
--- NOTE | 2019-04-03 11:48 | Progress Note ---
Assessment and Plan 1. CKD stage 4: Patient with known h/o CKD stage 4. CKD likely secondary to hypertensive nephropathy. Renal function is around her baseline. Monitor renal function. Avoid nephrotoxic agents. Meds dosage based on GFR. 2. FEN: Monitor lytes. 3. Syncope vs Seizure: Followed by Neuro and Cards. On Keppra. 4. Anemia: 5. Orthostatic hypotension. 6. UTI. 7. DM type 2. 8. Cognitive impairment: Likely Dementia. Subjective Date of service: 04/03/19 Principal diagnosis: Syncope Interval history: Patient was seen and examined at the bedside. Doing ok. Objective - Vital Signs Vital signs: Vital Signs - 12hr 04/03/19 04/03/19 04/03/19 00:02 04:39 08:02 Temperature 99.0 F 98.7 F 98.9 F Pulse Rate 71 73 72 Respiratory 18 18 18 Rate Blood Pressure 140/63 120/58 127/61 O2 Sat by Pulse 91 92 90 Oximetry - General Appearance General appearance: well-developed, well-nourished, appears stated age, other (no distress) EENT: ATNC, PERRL, mucous membranes moist, vision intact, hearing diminished Neck: supple Respiratory: Present: Clear to Ascultation Cardiology: regular, S1S2, no murmurs Gastrointestinal: normoactive bowel sounds, no tenderness, no distended Integumentary: no rash, warm and dry Neurologic: no focal deficit, no asterixis, confused, disoriented Musculoskeletal: other (no edema) - Lab 04/01/19 12:01 04/03/19 04:50 Most recent lab results Calcium 9.8 mg/dL (8.4-10.2) 04/03/19 04:50 Phosphorus 4.10 mg/dL (2.5-4.5) 04/01/19 04:08 Magnesium 1.80 mg/dL (1.7-2.3) 03/29/19 12:50 Medications & Allergies - Medications Allergies/Adverse Reactions: Allergies No Known Allergies Allergy (Unverified 06/23/16 14:03) Home Medications: Home Medications Medication Instructions Recorded Confirmed Last Taken Type AtorvaSTATin [Lipitor] 40 mg PO DAILY #30 tablet 04/03/19 Unknown Rx Carvedilol [Coreg] 25 mg PO BID #60 tablet 04/03/19 Unknown Rx Citalopram [celeXA] 10 mg PO QDAY #30 tablet 04/03/19 Unknown Rx Clopidogrel [Plavix] 75 mg PO QDAY #30 tablet 04/03/19 Unknown Rx Furosemide [Lasix TAB] 40 mg PO QDAY #30 tablet 04/03/19 Unknown Rx Insulin Glargine,Hum.rec.anlog 15 units SUB-Q QAM 30 Days 04/03/19 Unknown Rx [Basaglar Kwikpen U-100] insuln.pen NIFEdipine [Nifedipine ER] 60 mg PO Q12H #60 tablet.er 04/03/19 Unknown Rx levETIRAcetam [Keppra TAB] 500 mg PO BID #60 tablet 04/03/19 Unknown Rx Active Medications: Generic Name Dose Route Start Last Admin Trade Name Freq PRN Reason Stop Dose Admin Acetaminophen 650 mg 03/29/19 22:09 Tylenol PO Q4H PRN Pain MILD(1-3)/Fever >100.5/VICTORIA Al Hydrox/Mg Hydrox/Simethicone 30 ml 04/01/19 21:19 Alum-Mag Hydrox-Simeth 268-315-88sp/5ml PO Q8H PRN Indigestion Atorvastatin Calcium 40 mg 03/29/19 22:00 04/02/19 23:09 Lipitor PO 40 mg DAILY@2200 ZACARIAS Administration Carvedilol 25 mg 03/29/19 22:00 04/03/19 10:24 Coreg PO 25 mg BID ZACARIAS Administration Citalopram Hydrobromide 10 mg 03/30/19 10:00 04/03/19 10:24 Celexa PO 10 mg QDAY ZACARIAS Administration Clopidogrel Bisulfate 75 mg 03/30/19 10:00 04/03/19 10:24 Plavix PO 75 mg QDAY ZACARIAS Administration Furosemide 40 mg 03/30/19 10:00 04/03/19 10:24 Lasix PO 40 mg QDAY ZACARIAS Administration Hydromorphone HCl 0.5 mg 03/29/19 22:09 Dilaudid IV Q3H PRN Pain , Severe (7-10) Ceftriaxone Sodium 1 gm in 50 mls @ 100 mls/hr 03/30/19 10:00 04/03/19 10:24 Rocephin/Ns 1 Gm/50 Ml IV 100 mls/hr Q24HR ZACARIAS Administration Protocol Sodium Chloride 1,000 mls @ 60 mls/hr 03/31/19 19:00 04/02/19 18:43 Nacl 0.9% 1000 Ml IV 60 mls/hr DIRECT ZACARIAS Administration Insulin Glargine 15 units 03/30/19 10:00 04/03/19 10:25 Lantus SUB-Q 15 units QAM ZACARIAS Administration Insulin Human Lispro 0 unit 03/30/19 07:30 04/03/19 08:28 Humalog SUB-Q Not Given ACHS [facility] Protocol Levetiracetam 500 mg 03/31/19 22:00 04/03/19 10:25 Keppra PO 500 mg BID ZACARIAS Administration Lorazepam 1 mg 03/30/19 22:00 Ativan IV ONCE PRN Seizures Nifedipine 60 mg 03/29/19 22:00 04/03/19 10:24 Procardia Xl PO 60 mg Q12H ZACARIAS Administration Ondansetron HCl 4 mg 03/29/19 22:09 Zofran IV Q8H PRN Nausea And Vomiting Oxycodone/Acetaminophen 1 tab 03/29/19 22:09 Percocet 5/325 PO Q6H PRN Pain, Moderate (4-6) Senna/Docusate Sodium 2 tab 04/01/19 21:18 04/02/19 23:09 Senokot S PO 2 tab QHS PRN Administration Laxative Effect Sodium Chloride 10 ml 03/29/19 23:00 04/03/19 10:25 Sodium Chloride Flush Syringe 10 Ml IV 10 ml BID ZACARIAS Administration Sodium Chloride 10 ml 03/29/19 22:09 Sodium Chloride Flush Syringe 10 Ml IV PRN PRN LINE FLUSH
[2019-04-03 13:31] VITALS: BP 136/63
== END 2019-04-03 18:08 | disposition home or self-care (01) | DRG 100 ==
LOC: ED 11:52 → 4A 16:32
PROVIDERS: ADMIT Internal Medicine; ATTEND Hospitalist
DX: G40.909 Epilepsy, unspecified, not intractable, without status epilepticus (principal); N17.0 Acute kidney failure with tubular necrosis; G93.41 Metabolic encephalopathy; N39.0 Urinary tract infection, site not specified; N18.4 Chronic kidney disease, stage 4 (severe); E44.0 Moderate protein-calorie malnutrition; I95.1 Orthostatic hypotension; R26.81 Unsteadiness on feet; I12.9 Hypertensive chronic kidney disease with stage 1 through stage 4 chronic kidney disease, or unspecified chronic kidney disease; E78.2 Mixed hyperlipidemia; E11.22 Type 2 diabetes mellitus with diabetic chronic kidney disease; D64.9 Anemia, unspecified; F32.9 Major depressive disorder, single episode, unspecified; E11.51 Type 2 diabetes mellitus with diabetic peripheral angiopathy without gangrene; G30.9 Alzheimer's disease, unspecified; F02.80 Dementia in other diseases classified elsewhere, unspecified severity, without behavioral disturbance, psychotic disturbance, mood disturbance, and anxiety; I25.10 Atherosclerotic heart disease of native coronary artery without angina pectoris; Z79.4 Long term (current) use of insulin; Z82.49 Family history of ischemic heart disease and other diseases of the circulatory system; Z79.899 Other long term (current) drug therapy; Z86.73 Personal history of transient ischemic attack (TIA), and cerebral infarction without residual deficits; Z68.26 Body mass index [BMI] 26.0-26.9, adult
CPT/HCPCS: 36415; 70450; 70551; 71045; 72125; 78582; 80048; 80053; 80061; 80320; 81001; 82271; 82550; 82553; 82962; 83036; 83735; 84100; 84443; 84484; 85025; 85379; 85610; 85670; 85730; 87086; 87116; 93005; 93010; 93306; 93880; 95819; 96365; 96368; G0378; A9270-GY; A9540; A9558; G0480; J0360; J0696; J1815; J1953; J2785; J7030

== ENCOUNTER 2019-06-25 16:04 | Inpatient (IN) | payer MEDICARE ==
[2019-06-25] MEDS ORDERED: SODIUM CHLORIDE 0.9% 1000 ML 1,000 ML IV ONE ×2 (16:31→18:46)
[2019-06-25 17:07] LABS: Basophils # (Auto) 0.1 K/mm3 (0.0-0.1); Basophils % (Auto) 1.5 % (0.0-1.8); Eosinophils # (Auto) 0.1 K/mm3 (0.0-0.4); Eosinophils % (Auto) 2.1 % (0.0-4.3); Hematocrit 32.3 % (30.3-42.9); Hemoglobin 10.5 gm/dl (10.1-14.3); Lymphocytes # (Auto) 1.4 K/mm3 (1.2-5.4); Lymphocytes % (Auto) 26.6 % (13.4-35.0); Mean Corpuscular HGB Conc 32 % (30-34); Mean Corpuscular Volume 87 fl (79-97); Monocytes # (Auto) 0.4 K/mm3 (0.0-0.8); Monocytes % (Auto) 8.3 % (0.0-7.3); Platelet Count 244 K/mm3 (140-440); Red Blood Count 3.72 M/mm3 (3.65-5.03)
--- NOTE | 2019-06-25 17:09 | XRay Report ---
CHEST 1 VIEW INDICATION / CLINICAL INFORMATION: ams. COMPARISON: 03/29/2019 FINDINGS: SUPPORT DEVICES: None. HEART / MEDIASTINUM: No significant abnormality. LUNGS / PLEURA: No significant pulmonary or pleural abnormality. No pneumothorax. ADDITIONAL FINDINGS: Eventration of the right hemidiaphragm IMPRESSION: 1. No acute findings. Signer Name: Ramakrishna Gna MD Signed: 06/25/2019 5:04 PM Workstation Name: [id number]
[2019-06-25 17:11] LABS: INR 0.96 (0.87-1.13)
[2019-06-25 17:12] LABS: Partial Thromboplastin Time 34.7 Sec. (24.2-36.6)
[2019-06-25 17:20] LABS: Calcium 9.2 mg/dL (8.4-10.2)
[2019-06-25 17:38] LABS: Alanine Aminotransferase 9 units/L (7-56); Albumin 3.2 g/dL (3.9-5)
[2019-06-25 17:39] LABS: Bilirubin,Direct < 0.2 mg/dL (0-0.2)
[2019-06-25 17:54] LABS: Chol/HDL Ratio 7.67 %
--- NOTE | 2019-06-25 18:06 | Cat Scan Report ---
CT BRAIN: 06/25/2019 INDICATION / CLINICAL INFORMATION: ams. COMPARISON: 03/29/2019 FINDINGS: BRAIN/INTRACRANIAL STRUCTURES: Unenhanced CT images of the brain demonstrate no evidence of acute int racranial abnormality. There is a focal area of cortical encephalomalacia in the left parietal lobe, consistent with chronic ischemic change. This is unchanged when compared to the prior exam. Ventricles and sulci are prominent in size, consistent with prominent diffuse cerebral atrophy, which is predominantly central. This is unchanged when compared to the prior exam. There is no CT evidence of acute ischemic injury, hemorrhage, or mass. There are no abnormal extra-ax ial fluid collections. EXTRACRANIAL STRUCTURES: Unremarkable. IMPRESSION: No acute abnormality. Chronic ischemic change. All CT scans at this location are performed using dose reduction to ALARA by means of automated expos ure control. 06/25/2019 Signer Name: Nash Wright MD Signed: 06/25/2019 6:02 PM Workstation Name: [id number]
[2019-06-25 18:53] LABS: Bacteria,Urine 4+ /HPF (Negative); Bilirubin,Urine NEG (Negative); Blood,Urine MOD (Negative); Color,Urine Yellow (Yellow); Urobilinogen,Urine < 2.0 mg/dL (<2.0)
[2019-06-25 18:56] LABS: Protein,Urine >500 mg/dL (Negative)
[2019-06-25 18:57] LABS: WBC,Urine > 182.0 /HPF (0.0-6.0)
[2019-06-25] MEDS ORDERED: cefTRIAXone/NS 1 GM/50 ML 1 GM/50 ML BAG IV ONE (19:12)
--- NOTE | 2019-06-25 19:18 | Emergency Department Report ---
ED Altered Mental Status HPI - General Chief Complaint: Altered Mental Status Stated Complaint: NEURO SYMPTOMS Time Seen by Provider: 06/25/19 16:14 Source: patient, EMS Mode of arrival: Ambulatory Limitations: No Limitations - History of Present Illness Initial Comments: 68-year-old female presents to ED with altered mental status. Patient has history of CVA with right-sided deficit, hypertension, chronic kidney disease. Son called EMS because patient became altered, not responding to him. When EMS arrived, patient found to be hypotensive, systolic BP in the 80s, only oriented to self. Patient has no new neuro deficits according to family, only abnormality is altered mental status. Daughter currently at bedside, states patient has been sitting in the sunroom all day. States patient may have become overheated. Patient reports that she did began to feel dizzy as if she was going to pass out, but did not pass out. Patient denies headache, chest pain, shortness of breath, vomiting, abdominal pain. Patient did not report any new weakness or numbness. Patient is currently A&O 3. MD Complaint: altered mental status -: hour(s) (1) Severity: moderate Context: unknown Associated Symptoms: denies other symptoms. denies: chest pain, fever/chills, headaches, nausea/vomiting, shortness of breath - Related Data Previous Rx's Medication Instructions Recorded Last Taken Type AtorvaSTATin [Lipitor] 40 mg PO DAILY #30 tablet 04/03/19 06/25/19 Rx Carvedilol [Coreg] 25 mg PO BID #60 tablet 04/03/19 06/25/19 Rx Citalopram [celeXA] 10 mg PO QDAY #30 tablet 04/03/19 06/25/19 Rx Clopidogrel [Plavix] 75 mg PO QDAY #30 tablet 04/03/19 06/25/19 Rx Furosemide [Lasix TAB] 40 mg PO QDAY #30 tablet 04/03/19 06/25/19 Rx Insulin Glargine,Hum.rec.anlog 15 units SUB-Q QAM 30 Days 04/03/19 06/25/19 Rx [Basaglar Kwikpen U-100] insuln.pen NIFEdipine [Nifedipine ER] 60 mg PO Q12H #60 tablet.er 04/03/19 06/25/19 Rx levETIRAcetam [Keppra TAB] 500 mg PO BID #60 tablet 04/03/19 06/25/19 Rx Allergies Allergy/AdvReac Type Severity Reaction Status Date / Time No Known Allergies Allergy Unverified 06/23/16 14:03 ED Review of Systems ROS: Stated complaint: NEURO SYMPTOMS Other details as noted in HPI Comment: All other systems reviewed and negative Constitutional: denies: chills, fever Respiratory: denies: shortness of breath Cardiovascular: denies: chest pain Gastrointestinal: denies: abdominal pain, nausea, vomiting, diarrhea Neurological: denies: headache, weakness, numbness ED Past Medical Hx - Past Medical History Hx Hypertension: Yes Hx Heart Attack/AMI: No Hx Diabetes: Yes Hx Liver Disease: No Hx Renal Disease: Yes (Stage 4) Hx Arthritis: Yes Hx Seizures: Yes (New onset seizure) Hx Dementia: Yes Hx HIV: No Additional medical history: dementia - Social History Smoking Status: Never Smoker Substance Use Type: None - Medications Home Medications: Home Medications Medication Instructions Recorded Confirmed Last Taken Type AtorvaSTATin [Lipitor] 40 mg PO DAILY #30 tablet 04/03/19 06/25/19 06/25/19 Rx Carvedilol [Coreg] 25 mg PO BID #60 tablet 04/03/19 06/25/19 06/25/19 Rx Citalopram [celeXA] 10 mg PO QDAY #30 tablet 04/03/19 06/25/19 06/25/19 Rx Clopidogrel [Plavix] 75 mg PO QDAY #30 tablet 04/03/19 06/25/19 06/25/19 Rx Furosemide [Lasix TAB] 40 mg PO QDAY #30 tablet 04/03/19 06/25/19 06/25/19 Rx Insulin Glargine,Hum.rec.anlog 15 units SUB-Q QAM 30 Days 04/03/19 06/25/19 06/25/19 Rx [Basaglar Kwikpen U-100] insuln.pen NIFEdipine [Nifedipine ER] 60 mg PO Q12H #60 tablet.er 04/03/19 06/25/19 06/25/19 Rx levETIRAcetam [Keppra TAB] 500 mg PO BID #60 tablet 04/03/19 06/25/19 06/25/19 Rx ED Physical Exam - General Limitations: No Limitations General appearance: alert, in no apparent distress - Head Head exam: Present: atraumatic, normocephalic - Eye Eye exam: Present: normal appearance, EOMI - ENT ENT exam: Present: mucous membranes moist - Neck Neck exam: Present: normal inspection - Respiratory Respiratory exam: Present: normal lung sounds bilaterally. Absent: respiratory distress - Cardiovascular Cardiovascular Exam: Present: regular rate, normal rhythm - GI/Abdominal GI/Abdominal exam: Present: soft. Absent: distended, tenderness - Extremities Exam Extremities exam: Present: normal inspection - Neurological Exam Neurological exam: Present: alert, oriented X3, other (mild baseline weakness to RUE, RLE 4/5 strength) - Psychiatric Psychiatric exam: Present: normal affect, normal mood - Skin Skin exam: Present: warm, dry, intact, normal color ED Course Vital Signs 06/25/19 06/25/19 06/25/19 16:22 16:26 16:30 Temperature 98.6 F Pulse Rate 73 73 73 Respiratory 13 17 16 Rate Blood Pressure 102/44 102/44 Blood Pressure 110/53 [Left] O2 Sat by Pulse 94 96 98 Oximetry 06/25/19 06/25/19 06/25/19 16:46 17:00 17:14 Temperature 98.6 F Pulse Rate 76 73 74 Respiratory 11 L 18 17 Rate Blood Pressure 110/53 111/55 Blood Pressure 111/55 [Left] O2 Sat by Pulse 98 98 96 Oximetry 06/25/19 06/25/19 06/25/19 17:22 17:30 17:46 Temperature Pulse Rate 74 75 73 Respiratory 12 14 14 Rate Blood Pressure 111/55 96/54 94/54 Blood Pressure [Left] O2 Sat by Pulse 91 94 97 Oximetry 06/25/19 06/25/19 06/25/19 18:00 18:16 18:30 Temperature Pulse Rate 73 73 74 Respiratory 17 17 17 Rate Blood Pressure 119/54 114/57 117/63 Blood Pressure [Left] O2 Sat by Pulse 95 94 96 Oximetry 06/25/19 06/25/19 06/25/19 18:46 19:00 19:16 Temperature Pulse Rate 73 75 80 Respiratory 11 L 17 13 Rate Blood Pressure 116/59 127/61 106/67 Blood Pressure [Left] O2 Sat by Pulse 95 94 94 Oximetry 06/25/19 06/25/19 06/25/19 19:30 19:46 20:00 Temperature Pulse Rate 78 77 79 Respiratory 10 L 16 15 Rate Blood Pressure 134/70 81/47 97/56 Blood Pressure [Left] O2 Sat by Pulse 96 94 93 Oximetry 06/25/19 06/25/19 06/25/19 20:14 20:16 20:30 Temperature Pulse Rate 79 79 78 Respiratory 16 12 12 Rate Blood Pressure 100/55 134/65 Blood Pressure 97/56 [Left] O2 Sat by Pulse 96 95 97 Oximetry 06/25/19 06/25/19 06/25/19 20:46 21:00 21:16 Temperature Pulse Rate 81 80 77 Respiratory 17 11 L 16 Rate Blood Pressure 134/65 147/73 156/73 Blood Pressure [Left] O2 Sat by Pulse 91 98 97 Oximetry 06/25/19 06/25/19 06/25/19 21:30 21:46 22:00 Temperature Pulse Rate 75 82 76 Respiratory 17 12 18 Rate Blood Pressure 157/75 160/79 159/75 Blood Pressure [Left] O2 Sat by Pulse 97 99 97 Oximetry 06/25/19 06/25/19 22:16 22:40 Temperature Pulse Rate 80 77 Respiratory 15 18 Rate Blood Pressure 162/75 Blood Pressure 161/77 [Left] O2 Sat by Pulse 99 96 Oximetry - Lab Data Result diagrams: 06/25/19 16:45 06/25/19 16:45 Lab Results 06/25/19 06/25/19 06/25/19 Range/Units 16:45 16:45 16:45 WBC 5.2 (4.5-11.0) K/mm3 RBC 3.72 (3.65-5.03) M/mm3 Hgb 10.5 (10.1-14.3) gm/dl Hct 32.3 (30.3-42.9) % MCV 87 (79-97) fl MCH 28 (28-32) pg MCHC 32 (30-34) % RDW 14.0 (13.2-15.2) % Plt Count 244 (140-440) K/mm3 Lymph % (Auto) 26.6 (13.4-35.0) % [place] % (Auto) 8.3 H (0.0-7.3) % Eos % (Auto) 2.1 (0.0-4.3) % Baso % (Auto) 1.5 (0.0-1.8) % Lymph # 1.4 (1.2-5.4) K/mm3 [place] # 0.4 (0.0-0.8) K/mm3 Eos # 0.1 (0.0-0.4) K/mm3 Baso # 0.1 (0.0-0.1) K/mm3 Seg Neutrophils % 61.5 (40.0-70.0) % Seg Neutrophils # 3.2 (1.8-7.7) K/mm3 PT 12.5 (12.2-14.9) Sec. INR 0.96 (0.87-1.13) APTT 34.7 (24.2-36.6) Sec. Sodium 139 (137-145) mmol/L Potassium 3.9 (3.6-5.0) mmol/L Chloride 104.1 (98-107) mmol/L Carbon Dioxide 21 L (22-30) mmol/L Anion Gap 18 mmol/L BUN 33 H (7-17) mg/dL Creatinine 3.4 H (0.7-1.2) mg/dL Estimated GFR 16 ml/min BUN/Creatinine Ratio 10 % Glucose 251 H (65-100) mg/dL Lactic Acid (0.7-2.0) mmol/L Calcium 9.2 (8.4-10.2) mg/dL Total Bilirubin (0.1-1.2) mg/dL Direct Bilirubin (0-0.2) mg/dL Indirect Bilirubin mg/dL AST (5-40) units/L ALT (7-56) units/L Alkaline Phosphatase (35-129) units/L Total Creatine Kinase (30-135) units/L Troponin T 0.065 H (0.00-0.029) ng/mL Total Protein (6.3-8.2) g/dL Albumin (3.9-5) g/dL Albumin/Globulin Ratio % Triglycerides 242 H (2-149) mg/dL Cholesterol 330 H (50-199) mg/dL LDL Cholesterol Direct 256 H (50-130) mg/dL HDL Cholesterol 43 (40-59) mg/dL Cholesterol/HDL Ratio 7.67 % 06/25/19 06/25/19 06/25/19 Range/Units 16:45 16:45 18:04 WBC (4.5-11.0) K/mm3 RBC (3.65-5.03) M/mm3 Hgb (10.1-14.3) gm/dl Hct (30.3-42.9) % MCV (79-97) fl MCH (28-32) pg MCHC (30-34) % RDW (13.2-15.2) % Plt Count (140-440) K/mm3 Lymph % (Auto) (13.4-35.0) % [place] % (Auto) (0.0-7.3) % Eos % (Auto) (0.0-4.3) % Baso % (Auto) (0.0-1.8) % Lymph # (1.2-5.4) K/mm3 [place] # (0.0-0.8) K/mm3 Eos # (0.0-0.4) K/mm3 Baso # (0.0-0.1) K/mm3 Seg Neutrophils % (40.0-70.0) % Seg Neutrophils # (1.8-7.7) K/mm3 PT (12.2-14.9) Sec. INR (0.87-1.13) APTT (24.2-36.6) Sec. Sodium (137-145) mmol/L Potassium (3.6-5.0) mmol/L Chloride (98-107) mmol/L Carbon Dioxide (22-30) mmol/L Anion Gap mmol/L BUN (7-17) mg/dL Creatinine (0.7-1.2) mg/dL Estimated GFR ml/min BUN/Creatinine Ratio % Glucose (65-100) mg/dL Lactic Acid 1.60 (0.7-2.0) mmol/L Calcium (8.4-10.2) mg/dL Total Bilirubin 0.20 (0.1-1.2) mg/dL Direct Bilirubin < 0.2 (0-0.2) mg/dL Indirect Bilirubin 0.0 mg/dL AST 13 (5-40) units/L ALT 9 (7-56) units/L Alkaline Phosphatase 130 H (35-129) units/L Total Creatine Kinase 127 (30-135) units/L Troponin T (0.00-0.029) ng/mL Total Protein 6.3 (6.3-8.2) g/dL Albumin 3.2 L (3.9-5) g/dL Albumin/Globulin Ratio 1.0 % Triglycerides (2-149) mg/dL Cholesterol (50-199) mg/dL LDL Cholesterol Direct (50-130) mg/dL HDL Cholesterol (40-59) mg/dL Cholesterol/HDL Ratio % - EKG Data -: EKG Interpreted by Me EKG shows normal: sinus rhythm, axis, intervals, QRS complexes, ST-T waves Rate: normal Interpretation: other (lateral T wave inversions) - Radiology Data Radiology results: report reviewed, image reviewed - Medical Decision Making 68-year-old female with altered mental status, hypotension, UTI. Hypotension currently resolved with IV fluid administration. No new neuro deficits. Patient is afebrile, lactic acid and WBCs normal. CT head, chest x-ray normal. Rocephin given, urine culture sent. Patient will be admitted by hospitalist for further management. - Differential Diagnosis heat-related illness, dehydration, infection, CVA Critical Care Time: Yes Critical care time in (mins) excluding proc time.: 35 Critical care attestation.: If time is entered above; I have spent that time in minutes in the direct care of this critically ill patient, excluding procedure time. Critical Care Time: 35 minutes ED Disposition Clinical Impression: UTI (urinary tract infection), Hypotension, Acute alteration in mental status Disposition: DC-09 OP ADMIT IP TO THIS HOSP Is pt being admited?: Yes Condition: Stable Time of Disposition: 19:21
[2019-06-25] MEDS ORDERED: SODIUM CHLORIDE 0.9% 1000 ML IV SOLN IV ONE (20:10)
[2019-06-25] MEDS ORDERED: ALBUTEROL 2.5 MG/3 ML NEBU IH PRN (20:12)
--- NOTE | 2019-06-25 20:12 | History and Physical Report ---
History of Present Illness Chief complaint: Confused, Low blood pressure History of present illness: 68 YO Female with HTN, DM, Dementia, Diastolic CHF, 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 Pt is confused and unable to provide detailed history. Pt history provided by daughter who is at bedside during exam and interview. As per daughter, the patient has experienced increased confusion and decreased oral intake over the past 1 week. Pt daughter reports decreased interaction with family as well as complaining of dizziness and feeling lightheaded. EMS was notified, and upon arrival the patient was found to have hypotension with SBP in the 80's. Pt transported to [facility]. Pt seen and evaluated in ED and found to have Sepsis secondary to UTI, Acute Kidney Injury, and Encephalopathy. Pt initiated on Sepsis protocol and admitted to IMCU. Pt SBP remained in the 80's after resuscitation with IV fluid. No reports of Fever, Chills, Headache, NVD, CP, Shortness of Breath, Abdominal pain, Skin Rash, or recent ill contacts. Pt has GCS of 10 on initial exam. QSofa Score:4. Prior admission on 03/29/19 reviewed. All listed medication reconciled at time of admission. Past History Past Medical History: diabetes, heart failure, hypertension, seizures, stroke Past Surgical History: bowel surgery Social history: , lives with family. denies: smoking, alcohol abuse, prescription drug abuse Family history: diabetes, hypertension Medications and Allergies Allergies Allergy/AdvReac Type Severity Reaction Status Date / Time No Known Allergies Allergy Unverified 06/23/16 14:03 Home Medications Medication Instructions Recorded Confirmed Last Taken Type AtorvaSTATin [Lipitor] 40 mg PO DAILY #30 tablet 04/03/19 06/25/19 06/25/19 Rx Carvedilol [Coreg] 25 mg PO BID #60 tablet 04/03/19 06/25/19 06/25/19 Rx Citalopram [celeXA] 10 mg PO QDAY #30 tablet 04/03/19 06/25/19 06/25/19 Rx Clopidogrel [Plavix] 75 mg PO QDAY #30 tablet 04/03/19 06/25/19 06/25/19 Rx Furosemide [Lasix TAB] 40 mg PO QDAY #30 tablet 04/03/19 06/25/19 06/25/19 Rx Insulin Glargine,Hum.rec.anlog 15 units SUB-Q QAM 30 Days 04/03/19 06/25/19 06/25/19 Rx [Basaglar Kwikpen U-100] insuln.pen NIFEdipine [Nifedipine ER] 60 mg PO Q12H #60 tablet.er 04/03/19 06/25/19 06/25/19 Rx levETIRAcetam [Keppra TAB] 500 mg PO BID #60 tablet 04/03/19 06/25/19 06/25/19 Rx Review of Systems ROS unobtainable: due to mental status Exam - Constitutional Vitals: Temp Pulse Resp BP Pulse Ox 98.6 F 74 17 111/55 96 06/25/19 17:14 06/25/19 17:14 06/25/19 17:14 06/25/19 17:14 06/25/19 17:14 General appearance: Present: mild distress - EENT Eyes: Present: PERRL ENT: hearing intact, clear oral mucosa - Neck Neck: Present: supple, normal ROM - Respiratory Respiratory effort: normal Respiratory: bilateral: CTA - Cardiovascular Rhythm: other (hypotensive, tachycardic) Heart Sounds: Present: S1 & S2. Absent: rub, click - Extremities Extremities: pulses symmetrical, No edema Peripheral Pulses: abnormal (capillary refill greater than 3.5 seconds) - Abdominal General gastrointestinal: Present: soft, non-tender, non-distended, normal bowel sounds, hernia Female genitourinary: Present: normal - Integumentary Integumentary: Present: clear, warm, dry - Musculoskeletal Musculoskeletal: generalized weakness - Psychiatric Psychiatric: no appropriate mood/affect, no intact judgment & insight, no memory intact - Neurologic Neurologic: moves all extremities, no gait normal, other (GCS 10) Results - Labs CBC & Chem 7: 06/25/19 16:45 06/25/19 16:45 Labs: Abnormal lab results 06/25/19 06/25/19 06/25/19 Range/Units 16:45 16:45 16:45 [place] % (Auto) 8.3 H (0.0-7.3) % Carbon Dioxide 21 L (22-30) mmol/L BUN 33 H (7-17) mg/dL Creatinine 3.4 H (0.7-1.2) mg/dL Glucose 251 H (65-100) mg/dL Alkaline Phosphatase 130 H (35-129) units/L Troponin T 0.065 H (0.00-0.029) ng/mL Albumin 3.2 L (3.9-5) g/dL Triglycerides 242 H (2-149) mg/dL Cholesterol 330 H (50-199) mg/dL LDL Cholesterol Direct 256 H (50-130) mg/dL Urine WBC (Auto) (0.0-6.0) /HPF 06/25/19 Range/Units Unknown [place] % (Auto) (0.0-7.3) % Carbon Dioxide (22-30) mmol/L BUN (7-17) mg/dL Creatinine (0.7-1.2) mg/dL Glucose (65-100) mg/dL Alkaline Phosphatase (35-129) units/L Troponin T (0.00-0.029) ng/mL Albumin (3.9-5) g/dL Triglycerides (2-149) mg/dL Cholesterol (50-199) mg/dL LDL Cholesterol Direct (50-130) mg/dL Urine WBC (Auto) > 182.0 H (0.0-6.0) /HPF Assessment and Plan - Patient Problems (1) Sepsis Current Visit: Yes Status: Acute Qualifiers: Severe sepsis acute organ dysfunction type: acute renal failure Plan to address problem: Admit to IMCU, Sepsis Protocol: IV antibiotic therapy, IVF resuscitation therapy, blood cultures, urinalysis, CBC, CMP, chest x ray, monitor uop q shift, maintain MAP above 60, IV pressor support as clinically indicated to maintain MAP above 60. (2) Encephalopathy Current Visit: Yes Status: Acute Plan to address problem: CT head, neuro check, aspiration precautions, seizure precautions, fall precautions. (3) Seizure Current Visit: Yes Status: Acute Plan to address problem: Seizure precautions, neuro check, supportive care, continue medical management. (4) UTI (urinary tract infection) Current Visit: Yes Status: Acute Qualifiers: Encounter type: initial encounter Plan to address problem: Urinalysis, CBC, CMP, IV antibiotic therapy (5) ESEQUIEL (acute kidney injury) Current Visit: No Status: Acute Plan to address problem: IVF resuscitation therapy, monitor uop q shift, monitor serum creatnine, urine electrolytes. (6) HTN (hypertension) Current Visit: No Status: Chronic Qualifiers: Hypertension type: essential hypertension Qualified Code(s): I10 - Essential (primary) hypertension Plan to address problem: Pt hypotensive at this time, hold therapy for SBP less than 130 (7) IDDM (insulin dependent diabetes mellitus) Current Visit: No Status: Chronic Plan to address problem: ADA diet, insulin, accu check, hypoglycemia protocol (8) Diastolic CHF Current Visit: Yes Status: Acute Qualifiers: Heart failure chronicity: acute on chronic Qualified Code(s): I50.33 - Acute on chronic diastolic (congestive) heart failure Plan to address problem: Strict I/O, monitor uop q shift, pulse oximetry, diuresis if clinical signs of lung rales, pulse oximetry, chest x ray, daily weight, blood pressure control. (9) DVT prophylaxis Current Visit: Yes Status: Acute Plan to address problem: SCD to BLE while in bed, prophylactic heparin
[2019-06-25] MEDS ORDERED: levETIRAcetam 500 MG TAB PO ONE (22:53)
[2019-06-25] MEDS: levETIRAcetam 500 MG TAB PO SCH (22:58)
[2019-06-26] MEDS: SODIUM CHLORIDE 0.45% 1000 ML 1,000 ML IV SCH ×2 (00:36→20:37)
[2019-06-26] MEDS: hydrALAZINE 20 MG/1 ML INJ IV PRN ×3 (02:05→15:10)
[2019-06-26 05:42] LABS: Alanine Aminotransferase 9 units/L (7-56); BUN/Creatinine Ratio 10; Basophils # (Auto) 0.1 K/mm3 (0.0-0.1); Basophils % (Auto) 1.3 % (0.0-1.8); Blood Urea Nitrogen 29 mg/dL (7-17); Eosinophils # (Auto) 0.2 K/mm3 (0.0-0.4); Eosinophils % (Auto) 2.4 % (0.0-4.3); Hematocrit 31.5 % (30.3-42.9); Hemoglobin 10.2 gm/dl (10.1-14.3); Hemolysis Index 15; Lymphocytes # (Auto) 2.2 K/mm3 (1.2-5.4); Lymphocytes % (Auto) 32.1 % (13.4-35.0); Mean Corpuscular HGB Conc 32 % (30-34); Mean Corpuscular Volume 87 fl (79-97); Monocytes # (Auto) 0.5 K/mm3 (0.0-0.8); Platelet Count 261 K/mm3 (140-440); Red Blood Count 3.61 M/mm3 (3.65-5.03)
[2019-06-26] MEDS: FUROSEMIDE 20 MG/2 ML INJ IV SCH ×2 (07:07→18:12)
[2019-06-26] MEDS: HEPARIN 5,000 UNIT/1 ML VIAL SUB-Q SCH ×2 (09:47→21:47)
[2019-06-26] MEDS: CITALOPRAM 10 MG TAB PO SCH (09:47)
[2019-06-26] MEDS: CLOPIDOGREL 75 MG TAB PO SCH (09:47)
[2019-06-26] MEDS: levETIRAcetam 500 MG TAB PO SCH ×2 (09:47→21:48)
--- NOTE | 2019-06-26 09:52 | Progress Note ---
Assessment and Plan Assessment and plan: Sepsis. Continue IV antibiotics and follow up blood cultures and lactic acid levels. Continue IV fluid resuscitation. Toxic metabolic encephalopathy. Continue to treat underlying causes. Acute kidney injury. Etiology likely secondary to sepsis/ATN +/-vasomotor nephropathy and dehydration. Patient with a creatinine of 1.[address] scan of the abdomen and pelvis rule out obstruction. UTI. Cont abx and f/u cx results Seizure disorder. Continue AEDs and seizure precautions. Hypertension. Patient was actually hypotensive on admission. Continue IV fluid hydration and resume antihypertensive medications as needed. Diabetes mellitus type 2. Continue Accu-Cheks and slight scaliness. Chronic Diastolic heart failure. Compensated. History Interval history: No new issues overnight. Hospitalist Physical - Constitutional Vitals: Temp Pulse Resp BP Pulse Ox 97.9 F 70 16 169/73 100 06/26/19 08:00 06/26/19 09:06 06/26/19 09:00 06/26/19 09:06 06/26/19 09:00 General appearance: Present: no acute distress - EENT Eyes: Present: PERRL, EOM intact ENT: hearing intact, clear oral mucosa, dentition normal - Neck Neck: Present: supple, normal ROM - Respiratory Respiratory effort: normal Respiratory: bilateral: CTA - Cardiovascular Rhythm: regular Heart Sounds: Present: S1 & S2. Absent: gallop, rub - Extremities Extremities: no ischemia, No edema, Full ROM - Abdominal General gastrointestinal: soft, non-tender, non-distended, normal bowel sounds - Integumentary Integumentary: Present: clear, warm, dry - Neurologic Neurologic: CNII-XII intact, moves all extremities Results - Labs CBC & Chem 7: 06/26/19 05:00 06/26/19 05:00 Labs: Laboratory Last Values WBC 6.7 K/mm3 (4.5-11.0) 06/26/19 05:00 RBC 3.61 M/mm3 (3.65-5.03) L 06/26/19 05:00 Hgb 10.2 gm/dl (10.1-14.3) 06/26/19 05:00 Hct 31.5 % (30.3-42.9) 06/26/19 05:00 MCV 87 fl (79-97) 06/26/19 05:00 MCH 28 pg (28-32) 06/26/19 05:00 MCHC 32 % (30-34) 06/26/19 05:00 RDW 14.0 % (13.2-15.2) 06/26/19 05:00 Plt Count 261 K/mm3 (140-440) 06/26/19 05:00 Lymph % (Auto) 32.1 % (13.4-35.0) 06/26/19 05:00 [place] % (Auto) 8.0 % (0.0-7.3) H 06/26/19 05:00 Eos % (Auto) 2.4 % (0.0-4.3) 06/26/19 05:00 Baso % (Auto) 1.3 % (0.0-1.8) 06/26/19 05:00 Lymph # 2.2 K/mm3 (1.2-5.4) 06/26/19 05:00 [place] # 0.5 K/mm3 (0.0-0.8) 06/26/19 05:00 Eos # 0.2 K/mm3 (0.0-0.4) 06/26/19 05:00 Baso # 0.1 K/mm3 (0.0-0.1) 06/26/19 05:00 Seg Neutrophils % 56.2 % (40.0-70.0) 06/26/19 05:00 Seg Neutrophils # 3.8 K/mm3 (1.8-7.7) 06/26/19 05:00 PT 12.5 Sec. (12.2-14.9) 06/25/19 16:45 INR 0.96 (0.87-1.13) 06/25/19 16:45 APTT 34.7 Sec. (24.2-36.6) 06/25/19 16:45 Sodium 143 mmol/L (137-145) 06/26/19 05:00 Potassium 3.4 mmol/L (3.6-5.0) L 06/26/19 05:00 Chloride 111.1 mmol/L (98-107) H 06/26/19 05:00 Carbon Dioxide 18 mmol/L (22-30) L 06/26/19 05:00 Anion Gap 17 mmol/L 06/26/19 05:00 BUN 29 mg/dL (7-17) H 06/26/19 05:00 Creatinine 3.0 mg/dL (0.7-1.2) H 06/26/19 05:00 Estimated GFR 19 ml/min 06/26/19 05:00 BUN/Creatinine Ratio 10 % 06/26/19 05:00 Glucose 126 mg/dL (65-100) H 06/26/19 05:00 Lactic Acid 1.10 mmol/L (0.7-2.0) 06/26/19 05:00 Calcium 9.0 mg/dL (8.4-10.2) 06/26/19 05:00 Total Bilirubin < 0.20 mg/dL (0.1-1.2) 06/26/19 05:00 Direct Bilirubin < 0.2 mg/dL (0-0.2) 06/25/19 16:45 Indirect Bilirubin 0.0 mg/dL 06/25/19 16:45 AST 16 units/L (5-40) 06/26/19 05:00 ALT 9 units/L (7-56) 06/26/19 05:00 Alkaline Phosphatase 131 units/L (35-129) H 06/26/19 05:00 Total Creatine Kinase 127 units/L (30-135) 06/25/19 18:04 Troponin T 0.065 ng/mL (0.00-0.029) H 06/25/19 16:45 Total Protein 6.9 g/dL (6.3-8.2) 06/26/19 05:00 Albumin 3.0 g/dL (3.9-5) L 06/26/19 05:00 Albumin/Globulin Ratio 0.8 % 06/26/19 05:00 Triglycerides 242 mg/dL (2-149) H 06/25/19 16:45 Cholesterol 330 mg/dL (50-199) H 06/25/19 16:45 LDL Cholesterol Direct 256 mg/dL (50-130) H 06/25/19 16:45 HDL Cholesterol 43 mg/dL (40-59) 06/25/19 16:45 Cholesterol/HDL Ratio 7.67 % 06/25/19 16:45 Urine Color Yellow (Yellow) 06/25/19 Unknown Urine Turbidity Turbid (Clear) 06/25/19 Unknown Urine pH 5.0 (5.0-7.0) 06/25/19 Unknown Ur Specific [place] 1.014 (1.003-1.030) 06/25/19 Unknown Urine Protein >500 mg/dL (Negative) 06/25/19 Unknown Urine Glucose (UA) >=500 mg/dL (Negative) 06/25/19 Unknown Urine Ketones Neg mg/dL (Negative) 06/25/19 Unknown Urine Blood Mod (Negative) 06/25/19 Unknown Urine Nitrite Neg (Negative) 06/25/19 Unknown Urine Bilirubin Neg (Negative) 06/25/19 Unknown Urine Urobilinogen < 2.0 mg/dL (<2.0) 06/25/19 Unknown Ur Leukocyte Esterase Lg (Negative) 06/25/19 Unknown Urine WBC (Auto) > 182.0 /HPF (0.0-6.0) H 06/25/19 Unknown Urine RBC (Auto) 12.0 /HPF (0.0-6.0) 06/25/19 Unknown U Epithel Cells (Auto) 1.0 /HPF (0-13.0) 06/25/19 Unknown Urine Bacteria (Auto) 4+ /HPF (Negative) 06/25/19 Unknown Urine WBC Clumps 3+ /HPF 06/25/19 Unknown Active Medications - Current Medications Current Medications: Generic Name Dose Route Start Last Admin Trade Name Freq PRN Reason Stop Dose Admin Albuterol 2.5 mg 06/25/19 20:12 Proventil IH Q3HRT PRN Shortness Of Breath Atorvastatin Calcium 40 mg 06/26/19 10:[address] [facility] Citalopram Hydrobromide 10 mg 06/26/19 10:00 Celexa PO QDAY ZACARIAS Clopidogrel Bisulfate 75 mg 06/26/19 10:00 Plavix PO QDAY ZACARIAS Furosemide 20 mg 06/26/19 06:00 06/26/19 07:07 Lasix IV 20 mg 0600,1800 ZACARIAS Administration Heparin Sodium (Porcine) 5,000 unit 06/26/19 10:00 Heparin SUB-Q Q12HR ZACARIAS Hydralazine HCl 5 mg 06/26/19 00:43 06/26/19 09:06 Apresoline IV 5 mg Q6H PRN Administration Hypertension Ceftriaxone Sodium 1 gm in 50 mls @ 100 mls/hr 06/26/19 10:00 Rocephin/Ns 1 Gm/50 Ml IV 06/28/19 10:29 Q24HR ZACARIAS Protocol Sodium Chloride 1,000 mls @ 50 mls/hr 06/25/19 23:45 06/26/19 00:36 Nacl 0.45% 1000 Ml IV 50 mls/hr DIRECT ZACARIAS Administration Levetiracetam 500 mg 06/25/19 22:00 06/25/19 22:58 Keppra PO 500 mg BID ZACARIAS Administration Sodium Chloride 10 ml 06/25/19 22:00 06/25/19 22:58 Sodium Chloride Flush Syringe 10 Ml IV 10 ml BID ZACARIAS Administration Sodium Chloride 10 ml 06/25/19 20:12 Sodium Chloride Flush Syringe 10 Ml IV PRN PRN LINE FLUSH
[2019-06-26] MEDS: cefTRIAXone/NS 1 GM/50 ML 1 GM/50 ML BAG IV SCH (11:00)
--- NOTE | 2019-06-26 12:43 | Cat Scan Report ---
CT ABDOMEN AND PELVIS WITHOUT CONTRAST INDICATION: ARF, r/o obstruction. Abdominal pain and distention TECHNIQUE: Axial CT images were obtained through the abdomen and pelvis without IV contrast. All CT scans at [facility] location are performed using CT dose reduction for ALARA by means of automated exposure control. COMPARISON: None available. FINDINGS: LOWER CHEST: Mild bibasilar interstitial edema and tiny bilateral pleural effusions. LIVER: No significant abnormality. GALLBLADDER: Calcified 8 mm stone within the dependent portion of gallbladder neck without CT evidenc e for cholecystitis BILE DUCTS: No significant abnormality. PANCREAS: No significant abnormality. SPLEEN: No significant abnormality. ADRENALS: No significant abnormality. RIGHT KIDNEY and URETER: Tiny punctate 1 mm right intrarenal stone. No ureteral stone or hydronephros is LEFT KIDNEY and URETER: No significant abnormality. STOMACH and SMALL BOWEL: No significant abnormality. COLON: Moderate diverticulosis of sigmoid and distal descending colon. Ventral abdominal wall hernia containing transverse colon without obstruction or incarceration. APPENDIX: No significant abnormality. PERITONEUM: No free fluid. No free air. No fluid collection. LYMPH NODES: No significant adenopathy. AORTA and ARTERIES: No significant abnormality. IVC and VEINS: No significant abnormality. URINARY BLADDER: No significant abnormality. REPRODUCTIVE ORGANS: Enlarged uterus with several calcified fibroids, largest of which measures 4.8 c m in maximum diameter. ADDITIONAL FINDINGS: None. SKELETAL SYSTEM: Moderate degenerative changes of lumbar spine. IMPRESSION: 1. Moderate sigmoid diverticulosis without CT evidence for diverticulitis. 2. Mild CHF. 3. Leiomyomatous uterus. 4. Cholelithiasis. 5. Ventral abdominal wall hernia containing transverse colon without obstruction or incarceration. Signer Name: Nolan Mcneil MD Signed: 06/26/2019 12:38 PM Workstation Name: [id number]
[2019-06-26] MEDS: INSULIN REGULAR, HUMAN 100 UNITS/1 ML SUB-Q SCH ×2 (16:23→21:31)
[2019-06-26] MEDS: carvediloL 25 MG TAB PO SCH (21:48)
[2019-06-26] MEDS: NIFEdipine XL 60 MG TAB PO SCH (21:48)
[2019-06-27] MEDS: FUROSEMIDE 20 MG/2 ML INJ IV SCH ×2 (05:52→17:26)
[2019-06-27 06:30] LABS: Basophils # (Auto) 0.1 K/mm3 (0.0-0.1); Basophils % (Auto) 1.6 % (0.0-1.8); Eosinophils # (Auto) 0.1 K/mm3 (0.0-0.4); Eosinophils % (Auto) 2.4 % (0.0-4.3); Hematocrit 32.2 % (30.3-42.9); Hemoglobin 10.7 gm/dl (10.1-14.3); Lymphocytes # (Auto) 1.5 K/mm3 (1.2-5.4); Lymphocytes % (Auto) 30.8 % (13.4-35.0); Mean Corpuscular HGB Conc 33 % (30-34); Mean Corpuscular Volume 87 fl (79-97); Monocytes # (Auto) 0.4 K/mm3 (0.0-0.8); Monocytes % (Auto) 7.1 % (0.0-7.3); Platelet Count 271 K/mm3 (140-440); Red Blood Count 3.72 M/mm3 (3.65-5.03); Red Cell Distribution Width 14.2 % (13.2-15.2)
[2019-06-27 06:51] LABS: Calcium 9.2 mg/dL (8.4-10.2)
[2019-06-27] MEDS: INSULIN REGULAR, HUMAN 100 UNITS/1 ML SUB-Q SCH ×4 (08:26→22:00)
[2019-06-27] MEDS: cefTRIAXone/NS 1 GM/50 ML 1 GM/50 ML BAG IV SCH (10:05)
[2019-06-27] MEDS: CITALOPRAM 10 MG TAB PO SCH (10:05)
[2019-06-27] MEDS: CLOPIDOGREL 75 MG TAB PO SCH (10:05)
[2019-06-27] MEDS: levETIRAcetam 500 MG TAB PO SCH ×2 (10:05→23:09)
[2019-06-27] MEDS: NIFEdipine XL 60 MG TAB PO SCH ×2 (10:07→23:08)
[2019-06-27] MEDS: carvediloL 25 MG TAB PO SCH ×2 (10:07→23:08)
[2019-06-27] MEDS: HEPARIN 5,000 UNIT/1 ML VIAL SUB-Q SCH ×2 (10:09→23:08)
--- NOTE | 2019-06-27 10:14 | Progress Note ---
Assessment and Plan Assessment and plan: Sepsis. Continue IV antibiotics and follow up blood cultures and lactic acid levels. Continue IV fluid resuscitation. Toxic metabolic encephalopathy. Continue to treat underlying causes. Acute kidney injury on CKD. Etiology likely secondary to sepsis/ATN +/- vasomotor nephropathy and dehydration. Patient with a creatinine of 1.2 2016. However, patient with creatinine of approximately 2.5 in December and March of 2019. CT scan showed no evidence of obstruction. Consult nephrology. UTI. Cont abx and f/u cx results Seizure disorder. Continue AEDs and seizure precautions. Hypertension. Patient was actually hypotensive on admission. Continue IV fluid hydration and resume antihypertensive medications as needed. Diabetes mellitus type 2. Continue Accu-Cheks and slight scaliness. Chronic Diastolic heart failure. Compensated. History Interval history: No new issues overnight. Hospitalist Physical - Constitutional Vitals: Temp Pulse Resp BP Pulse Ox 98.4 F 78 18 160/79 97 06/27/19 08:11 06/27/19 10:07 06/27/19 08:11 06/27/19 10:07 06/27/19 08:11 General appearance: Present: no acute distress - EENT Eyes: Present: PERRL, EOM intact ENT: hearing intact, clear oral mucosa, dentition normal - Neck Neck: Present: supple, normal ROM - Respiratory Respiratory effort: normal Respiratory: bilateral: CTA - Cardiovascular Rhythm: regular Heart Sounds: Present: S1 & S2. Absent: gallop, rub - Extremities Extremities: no ischemia, No edema, Full ROM - Abdominal General gastrointestinal: soft, non-tender, non-distended, normal bowel sounds - Integumentary Integumentary: Present: clear, warm, dry - Neurologic Neurologic: CNII-XII intact, moves all extremities Results - Labs CBC & Chem 7: 06/27/19 06:06 06/27/19 06:06 Labs: Laboratory Last Values WBC 5.0 K/mm3 (4.5-11.0) 06/27/19 06:06 RBC 3.72 M/mm3 (3.65-5.03) 06/27/19 06:06 Hgb 10.7 gm/dl (10.1-14.3) 06/27/19 06:06 Hct 32.2 % (30.3-42.9) 06/27/19 06:06 MCV 87 fl (79-97) 06/27/19 06:06 MCH 29 pg (28-32) 06/27/19 06:06 MCHC 33 % (30-34) 06/27/19 06:06 RDW 14.2 % (13.2-15.2) 06/27/19 06:06 Plt Count 271 K/mm3 (140-440) 06/27/19 06:06 Lymph % (Auto) 30.8 % (13.4-35.0) 06/27/19 06:06 [place] % (Auto) 7.1 % (0.0-7.3) 06/27/19 06:06 Eos % (Auto) 2.4 % (0.0-4.3) 06/27/19 06:06 Baso % (Auto) 1.6 % (0.0-1.8) 06/27/19 06:06 Lymph # 1.5 K/mm3 (1.2-5.4) 06/27/19 06:06 [place] # 0.4 K/mm3 (0.0-0.8) 06/27/19 06:06 Eos # 0.1 K/mm3 (0.0-0.4) 06/27/19 06:06 Baso # 0.1 K/mm3 (0.0-0.1) 06/27/19 06:06 Seg Neutrophils % 58.1 % (40.0-70.0) 06/27/19 06:06 Seg Neutrophils # 2.9 K/mm3 (1.8-7.7) 06/27/19 06:06 PT 12.5 Sec. (12.2-14.9) 06/25/19 16:45 INR 0.96 (0.87-1.13) 06/25/19 16:45 APTT 34.7 Sec. (24.2-36.6) 06/25/19 16:45 Sodium 141 mmol/L (137-145) 06/27/19 06:06 Potassium 3.5 mmol/L (3.6-5.0) L 06/27/19 06:06 Chloride 106.2 mmol/L (98-107) 06/27/19 06:06 Carbon Dioxide 20 mmol/L (22-30) L 06/27/19 06:06 Anion Gap 18 mmol/L 06/27/19 06:06 BUN 25 mg/dL (7-17) H 06/27/19 06:06 Creatinine 2.6 mg/dL (0.7-1.2) H 06/27/19 06:06 Estimated GFR 22 ml/min 06/27/19 06:06 BUN/Creatinine Ratio 10 % 06/27/19 06:06 Glucose 129 mg/dL (65-100) H 06/27/19 06:06 POC Glucose 129 (70-105) H 06/27/19 08:15 Lactic Acid 0.60 mmol/L (0.7-2.0) L 06/26/19 13:27 Calcium 9.2 mg/dL (8.4-10.2) 06/27/19 06:06 Total Bilirubin < 0.20 mg/dL (0.1-1.2) 06/26/19 05:00 Direct Bilirubin < 0.2 mg/dL (0-0.2) 06/25/19 16:45 Indirect Bilirubin 0.0 mg/dL 06/25/19 16:45 AST 16 units/L (5-40) 06/26/19 05:00 ALT 9 units/L (7-56) 06/26/19 05:00 Alkaline Phosphatase 131 units/L (35-129) H 06/26/19 05:00 Total Creatine Kinase 127 units/L (30-135) 06/25/19 18:04 Troponin T 0.065 ng/mL (0.00-0.029) H 06/25/19 16:45 Total Protein 6.9 g/dL (6.3-8.2) 06/26/19 05:00 Albumin 3.0 g/dL (3.9-5) L 06/26/19 05:00 Albumin/Globulin Ratio 0.8 % 06/26/19 05:00 Triglycerides 242 mg/dL (2-149) H 06/25/19 16:45 Cholesterol 330 mg/dL (50-199) H 06/25/19 16:45 LDL Cholesterol Direct 256 mg/dL (50-130) H 06/25/19 16:45 HDL Cholesterol 43 mg/dL (40-59) 06/25/19 16:45 Cholesterol/HDL Ratio 7.67 % 06/25/19 16:45 Urine Color Yellow (Yellow) 06/25/19 Unknown Urine Turbidity Turbid (Clear) 06/25/19 Unknown Urine pH 5.0 (5.0-7.0) 06/25/19 Unknown Ur Specific [place] 1.014 (1.003-1.030) 06/25/19 Unknown Urine Protein >500 mg/dL (Negative) 06/25/19 Unknown Urine Glucose (UA) >=500 mg/dL (Negative) 06/25/19 Unknown Urine Ketones Neg mg/dL (Negative) 06/25/19 Unknown Urine Blood Mod (Negative) 06/25/19 Unknown Urine Nitrite Neg (Negative) 06/25/19 Unknown Urine Bilirubin Neg (Negative) 06/25/19 Unknown Urine Urobilinogen < 2.0 mg/dL (<2.0) 06/25/19 Unknown Ur Leukocyte Esterase Lg (Negative) 06/25/19 Unknown Urine WBC (Auto) > 182.0 /HPF (0.0-6.0) H 06/25/19 Unknown Urine RBC (Auto) 12.0 /HPF (0.0-6.0) 06/25/19 Unknown U Epithel Cells (Auto) 1.0 /HPF (0-13.0) 06/25/19 Unknown Urine Bacteria (Auto) 4+ /HPF (Negative) 06/25/19 Unknown Urine WBC Clumps 3+ /HPF 06/25/19 Unknown Active Medications - Current Medications Current Medications: Generic Name Dose Route Start Last Admin Trade Name Freq PRN Reason Stop Dose Admin Albuterol 2.5 mg 06/25/19 20:12 Proventil IH Q3HRT PRN Shortness Of Breath Atorvastatin Calcium 40 mg 06/26/19 10:00 06/27/19 10:07 Lipitor PO 40 mg DAILY ZACARIAS Administration Carvedilol 25 mg 06/26/19 22:00 06/27/19 10:07 Coreg PO 25 mg BID ZACARIAS Administration Citalopram Hydrobromide 10 mg 06/26/19 10:00 06/27/19 10:05 Celexa PO 10 mg QDAY ZACARIAS Administration Clopidogrel Bisulfate 75 mg 06/26/19 10:00 06/27/19 10:05 Plavix PO 75 mg QDAY ZACARIAS Administration Furosemide 20 mg 06/26/19 06:00 06/27/19 05:52 Lasix IV 20 mg 0600,1800 ZACARIAS Administration Heparin Sodium (Porcine) 5,000 unit 06/26/19 10:00 06/26/19 21:47 Heparin SUB-Q 5,000 unit Q12HR ZACARIAS Administration Hydralazine HCl 5 mg 06/26/19 00:43 06/26/19 15:10 Apresoline IV 5 mg Q6H PRN Administration Hypertension Ceftriaxone Sodium 1 gm in 50 mls @ 100 mls/hr 06/26/19 10:00 06/27/19 10:05 Rocephin/Ns 1 Gm/50 Ml IV 06/28/19 10:29 100 mls/hr Q24HR ZACARIAS Administration Protocol Sodium Chloride 1,000 mls @ 50 mls/hr 06/25/19 23:45 06/26/19 20:37 Nacl 0.45% 1000 Ml IV 50 mls/hr DIRECT ZACARIAS Administration Insulin Human Regular 0 units 06/26/19 16:30 06/27/19 08:26 Humulin R SUB-Q Not Given ACHS ZACARIAS Protocol Levetiracetam 500 mg 06/25/19 22:00 06/27/19 10:05 Keppra PO 500 mg BID ZACARIAS Administration Nifedipine 60 mg 06/26/19 22:00 06/27/19 10:07 Procardia Xl PO 60 mg Q12HR ZACARIAS Administration Sodium Chloride 10 ml 06/25/19 22:00 06/27/19 10:07 Sodium Chloride Flush Syringe 10 Ml IV 10 ml BID ZACARIAS Administration Sodium Chloride 10 ml 06/25/19 20:12 Sodium Chloride Flush Syringe 10 Ml IV PRN PRN LINE FLUSH
--- NOTE | 2019-06-27 10:44 | Consultation ---
History of Present Illness - Reason for Consult Consult date: 06/27/19 acute renal failure, chronic renal failure - History of Present Illness The patient is a 68 YO female, who is well known to our service, with history significant for HTN, DM type 2, CVA, Diastolic CHF, Dementia and CKD stage 4 who presented to [facility] ED with complaint of increased confusion and decreased oral intake over the past 1 week. Pt is confused and unable to provide detailed history. There was no family member at the bedside. Her daughter reported decreased interaction with family as well as complaining of dizziness and feeling lightheaded. EMS found patient's SBP in the 80's. On admission her creatinine was 3.4. Nephrology was consulted for further evaluation. Past History Past Medical History: diabetes, heart failure, hypertension, seizures, stroke Past Surgical History: bowel surgery Social history: , lives with family. denies: smoking, alcohol abuse, prescription drug abuse Family history: diabetes, hypertension Medications and Allergies Allergies Allergy/AdvReac Type Severity Reaction Status Date / Time No Known Allergies Allergy Unverified 06/23/16 14:03 Home Medications Medication Instructions Recorded Confirmed Last Taken Type AtorvaSTATin [Lipitor] 40 mg PO DAILY #30 tablet 04/03/19 06/25/19 06/25/19 Rx Carvedilol [Coreg] 25 mg PO BID #60 tablet 04/03/19 06/25/19 06/25/19 Rx Citalopram [celeXA] 10 mg PO QDAY #30 tablet 04/03/19 06/25/19 06/25/19 Rx Clopidogrel [Plavix] 75 mg PO QDAY #30 tablet 04/03/19 06/25/19 06/25/19 Rx Furosemide [Lasix TAB] 40 mg PO QDAY #30 tablet 04/03/19 06/25/19 06/25/19 Rx Insulin Glargine,Hum.rec.anlog 15 units SUB-Q QAM 30 Days 04/03/19 06/25/19 06/25/19 Rx [Basaglar Kwikpen U-100] insuln.pen NIFEdipine [Nifedipine ER] 60 mg PO Q12H #60 tablet.er 04/03/19 06/25/19 06/25/19 Rx levETIRAcetam [Keppra TAB] 500 mg PO BID #60 tablet 04/03/19 06/25/19 06/25/19 Rx Active Meds: Active Medications Albuterol (Proventil) 2.5 mg IH Q3HRT PRN PRN Reason: Shortness Of Breath Atorvastatin Calcium (Lipitor) 40 mg PO DAILY [facility] Last Admin: 06/27/19 10:07 Dose: 40 mg Documented by: Carvedilol (Coreg) 25 mg PO BID [facility] Last Admin: 06/27/19 10:07 Dose: 25 mg Documented by: Citalopram Hydrobromide (Celexa) 10 mg PO QDAY [facility] Last Admin: 06/27/19 10:05 Dose: 10 mg Documented by: Clopidogrel Bisulfate (Plavix) 75 mg PO QDAY [facility] Last Admin: 06/27/19 10:05 Dose: 75 mg Documented by: Furosemide (Lasix) 20 mg IV 0600,1800 [facility] Last Admin: 06/27/19 05:52 Dose: 20 mg Documented by: Heparin Sodium (Porcine) (Heparin) 5,000 unit SUB-Q Q12HR [facility] Last Admin: 06/27/19 10:09 Dose: 5,000 unit Documented by: Hydralazine HCl (Apresoline) 5 mg IV Q6H PRN PRN Reason: Hypertension Last Admin: 06/26/19 15:10 Dose: 5 mg Documented by: Ceftriaxone Sodium (Rocephin/Ns 1 Gm/50 Ml) 1 gm in 50 mls @ 100 mls/hr IV Q24HR [facility]; Protocol Stop: 06/28/19 10:29 Last Admin: 06/27/19 10:05 Dose: 100 mls/hr Documented by: Sodium Chloride (Nacl 0.45% 1000 Ml) 1,000 mls @ 50 mls/hr IV DIRECT [facility] Last Admin: 06/26/19 20:37 Dose: 50 mls/hr Documented by: Insulin Human Regular (Humulin R) 0 units SUB-Q ACHS ZACARIAS; Protocol Last Admin: 06/27/19 08:26 Dose: Not Given Documented by: Levetiracetam (Keppra) 500 mg PO BID [facility] Last Admin: 06/27/19 10:05 Dose: 500 mg Documented by: Nifedipine (Procardia Xl) 60 mg PO Q12HR [facility] Last Admin: 06/27/19 10:07 Dose: 60 mg Documented by: Sodium Chloride (Sodium Chloride Flush Syringe 10 Ml) 10 ml IV BID [facility] Last Admin: 06/27/19 10:07 Dose: 10 ml Documented by: Sodium Chloride (Sodium Chloride Flush Syringe 10 Ml) 10 ml IV PRN PRN PRN Reason: LINE FLUSH Review of Systems ROS unobtainable: due to mental status Exam - Vital Signs Vital signs: Vital Signs Pulse Resp Pulse Ox 73 13 94 06/25/19 16:22 06/25/19 16:22 06/25/19 16:22 - General Appearance General appearance: well-developed, well-nourished, appears stated age, other (no distress) EENT: ATNC, PERRL, mucous membranes moist, hearing intact, vision intact Neck: Present: neck supple, trachea midline Respiratory: Clear to Ascultation Heart: regular, S1S2, no murmurs Gastrointestinal: Present: normoactive bowel sounds. Absent: tenderness, distended Integumentary: no rash, warm and dry Neurologic: no asterixis, confused, disoriented, other (able to move all 4 extremities) Musculoskeletal: Present: other (no edema) Psychiatric: cooperative Results - Lab Results 06/27/19 06:06 06/27/19 06:06 Most recent lab results Calcium 9.2 mg/dL (8.4-10.2) 06/27/19 06:06 - Image Kidney/bladder ultrasound: other Assessment and Plan 1. Acute kidney injury: Vasomotor ESEQUIEL superimposed on CKD stage 4 in the setting of volume depletion and hypotension. Renal function is better. Renal function is around her baseline. Monitor renal function. Avoid nephrotoxic agents. Meds dosage based on GFR. 2. FEN: Volume overload based on CT, stop IV fluids. Continue Lasix. Monitor lytes. 3. Sepsis: Likely from UTI. On Ceftriaxone. 4. Toxic metabolic encephalopathy. 5. Chronic Diastolic heart failure: Stop IV fluids. 6. Seizure disorder: Continue AEDs and seizure precautions. 7. DM type 2. 8. Dementia.
[2019-06-27] MEDS ORDERED: POTASSIUM CHLORIDE ER 20 MEQ TAB PO ONE (10:45)
[2019-06-27] MEDS: SODIUM CHLORIDE 0.45% 1000 ML 1,000 ML IV SCH (15:09)
[2019-06-28] MEDS: FUROSEMIDE 20 MG/2 ML INJ IV SCH (06:43)
[2019-06-28] MEDS: INSULIN REGULAR, HUMAN 100 UNITS/1 ML SUB-Q SCH ×4 (08:00→22:25)
[2019-06-28 08:04] LABS: Basophils # (Auto) 0.1 K/mm3 (0.0-0.1); Basophils % (Auto) 1.8 % (0.0-1.8); Eosinophils # (Auto) 0.1 K/mm3 (0.0-0.4); Eosinophils % (Auto) 2.7 % (0.0-4.3); Hematocrit 29.7 % (30.3-42.9); Hemoglobin 9.7 gm/dl (10.1-14.3); Lymphocytes # (Auto) 1.8 K/mm3 (1.2-5.4); Lymphocytes % (Auto) 35.1 % (13.4-35.0); Mean Corpuscular HGB Conc 33 % (30-34); Mean Corpuscular Volume 87 fl (79-97); Monocytes # (Auto) 0.3 K/mm3 (0.0-0.8); Monocytes % (Auto) 6.8 % (0.0-7.3); Platelet Count 270 K/mm3 (140-440); Red Blood Count 3.42 M/mm3 (3.65-5.03)
[2019-06-28] MEDS: cefTRIAXone/NS 1 GM/50 ML 1 GM/50 ML BAG IV SCH (09:35)
[2019-06-28] MEDS: carvediloL 25 MG TAB PO SCH ×2 (09:36→22:24)
[2019-06-28] MEDS: CLOPIDOGREL 75 MG TAB PO SCH (09:36)
[2019-06-28] MEDS: levETIRAcetam 500 MG TAB PO SCH ×2 (09:36→22:24)
[2019-06-28] MEDS: CITALOPRAM 10 MG TAB PO SCH (09:37)
[2019-06-28] MEDS: NIFEdipine XL 60 MG TAB PO SCH ×2 (09:37→22:24)
[2019-06-28] MEDS: HEPARIN 5,000 UNIT/1 ML VIAL SUB-Q SCH ×2 (09:38→22:24)
--- NOTE | 2019-06-28 10:13 | Progress Note ---
Assessment and Plan 1. Acute kidney injury: Vasomotor ESEQUIEL superimposed on CKD stage 4 in the setting of volume depletion and hypotension. Creatinine level increased since yesterday. Hold Lasix. Monitor renal function. Avoid nephrotoxic agents. Meds dosage based on GFR. 2. FEN: Volume overload based on CT. Monitor lytes. 3. Sepsis: Likely from UTI. On Ceftriaxone. 4. Toxic metabolic encephalopathy. 5. Chronic Diastolic heart failure. 6. Seizure disorder: Continue AEDs and seizure precautions. 7. DM type 2. 8. Dementia. Examination: General appearance: well-developed, well-nourished, appears stated age, no distress EENT: ATNC, DIMA, mucous membranes moist, hearing intact, vision intact Neck: neck supple, trachea midline Respiratory: Clear to Ascultation Heart: regular, S1S2, no murmur Gastrointestinal: normoactive bowel sounds, no tender, ND Integumentary: no rash, warm and dry Neurologic: no asterixis, confused, disoriented, able to move all 4 extremities Musculoskeletal: no edema Psychiatric: cooperative Subjective Date of service: 06/28/19 Interval history: Patient was seen and examined at the bedside. Doing ok. Objective - Vital Signs Vital signs: Vital Signs - 12hr 06/27/19 06/27/19 06/28/19 23:08 23:43 03:44 Temperature 98.8 F 98.6 F Pulse Rate 74 73 71 Pulse Rate [ Apical] Pulse Rate [ Left Dorsalis Pedis] Pulse Rate [ Left Posterior Tibial] Pulse Rate [ Left Radial] Pulse Rate [ Right Dorsalis Pedis] Pulse Rate [ Right Posterior Tibial] Pulse Rate [ Right Radial] Respiratory 18 18 Rate Blood Pressure 148/65 160/71 137/60 O2 Sat by Pulse 94 96 Oximetry 06/28/19 06/28/19 06/28/19 08:20 08:42 09:36 Temperature 98.6 F Pulse Rate 69 74 Pulse Rate [ 90 Apical] Pulse Rate [ 90 Left Dorsalis Pedis] Pulse Rate [ 90 Left Posterior Tibial] Pulse Rate [ 90 Left Radial] Pulse Rate [ 90 Right Dorsalis Pedis] Pulse Rate [ 90 Right Posterior Tibial] Pulse Rate [ 90 Right Radial] Respiratory 18 19 Rate Blood Pressure 120/59 118/57 O2 Sat by Pulse 93 99 Oximetry - Lab 06/28/19 07:41 06/28/19 07:41 Most recent lab results Calcium 9.2 mg/dL (8.4-10.2) 06/27/19 06:06 Medications & Allergies - Medications Allergies/Adverse Reactions: Allergies No Known Allergies Allergy (Unverified 06/23/16 14:03) Home Medications: Home Medications Medication Instructions Recorded Confirmed Last Taken Type AtorvaSTATin [Lipitor] 40 mg PO DAILY #30 tablet 04/03/19 06/25/19 06/25/19 Rx Carvedilol [Coreg] 25 mg PO BID #60 tablet 04/03/19 06/25/19 06/25/19 Rx Citalopram [celeXA] 10 mg PO QDAY #30 tablet 04/03/19 06/25/19 06/25/19 Rx Clopidogrel [Plavix] 75 mg PO QDAY #30 tablet 04/03/19 06/25/19 06/25/19 Rx Furosemide [Lasix TAB] 40 mg PO QDAY #30 tablet 04/03/19 06/25/19 06/25/19 Rx Insulin Glargine,Hum.rec.anlog 15 units SUB-Q QAM 30 Days 04/03/19 06/25/19 06/25/19 Rx [Basaglar Kwikpen U-100] insuln.pen NIFEdipine [Nifedipine ER] 60 mg PO Q12H #60 tablet.er 04/03/19 06/25/19 06/25/19 Rx levETIRAcetam [Keppra TAB] 500 mg PO BID #60 tablet 04/03/19 06/25/19 06/25/19 Rx Active Medications: Generic Name Dose Route Start Last Admin Trade Name Erickq PRN Reason Stop Dose Admin Albuterol 2.5 mg 06/25/19 20:12 Proventil IH Q3HRT PRN Shortness Of Breath Atorvastatin Calcium 40 mg 06/26/19 10:00 06/28/19 09:36 Lipitor PO 40 mg DAILY [facility]ACARIAS Administration Carvedilol 25 mg 06/26/19 22:00 06/28/19 09:36 Coreg PO 25 mg BID ZACARIAS Administration Citalopram Hydrobromide 10 mg 06/26/19 10:00 06/28/19 09:37 Celexa PO 10 mg QDAY ZACARIAS Administration Clopidogrel Bisulfate 75 mg 06/26/19 10:00 06/28/19 09:36 Plavix PO 75 mg QDAY ZACARIAS Administration Furosemide 20 mg 06/26/19 06:00 06/28/19 06:43 Lasix IV 20 mg 0600,1800 [facility]ARIAS Administration Heparin Sodium (Porcine) 5,000 unit 06/26/19 10:00 06/28/19 09:38 Heparin SUB-Q 5,000 unit Q12HR [facility]ACARIAS Administration Hydralazine HCl 5 mg 06/26/19 00:43 06/26/19 15:10 Apresoline IV 5 mg Q6H PRN Administration Hypertension Ceftriaxone Sodium 1 gm in 50 mls @ 100 mls/hr 06/26/19 10:00 06/28/19 09:35 Rocephin/Ns 1 Gm/50 Ml IV 06/28/19 10:29 100 mls/hr Q24HR [facility]ARI[facility] Administration Protocol Insulin Human Regular 0 units 06/26/19 16:30 06/28/19 08:00 Humulin R SUB-Q 2 units ACHS ZACARIAS Administration Protocol Levetiracetam 500 mg 06/25/19 22:00 06/28/19 09:36 Keppra PO 500 mg BID [facility] Administration Nifedipine 60 mg 06/26/19 22:00 06/28/19 09:37 Procardia Xl PO 60 mg Q12HR [facility]ARIAS Administration Sodium Chloride 10 ml 06/25/19 22:00 06/28/19 09:35 Sodium Chloride Flush Syringe 10 Ml IV 10 ml BID [facility] Administration Sodium Chloride 10 ml 06/25/19 20:12 Sodium Chloride Flush Syringe 10 Ml IV PRN PRN LINE FLUSH
[2019-06-28 10:21] LABS: Calcium 8.9 mg/dL (8.4-10.2)
--- NOTE | 2019-06-28 12:00 | Progress Note ---
Assessment and Plan Assessment and plan: Sepsis. Continue IV antibiotics and follow up blood cultures and lactic acid levels. Continue IV fluid resuscitation. Toxic metabolic encephalopathy. Continue to treat underlying causes. Acute kidney injury on CKD IV. Etiology likely secondary to sepsis/ATN +/- vasomotor nephropathy and dehydration. Patient with creatinine of approximately 2.5 in December and March of 2019. CT scan showed no evidence of obstruction. Nephrology following. UTI. Cont Rocephin and f/u cx results Seizure disorder. Continue AEDs and seizure precautions. Hypertension. Patient was actually hypotensive on admission. Continue IV fluid hydration and resume antihypertensive medications as needed. Diabetes mellitus type 2. Continue Accu-Cheks and slight scaliness. Chronic Diastolic heart failure. Compensated. History Interval history: No new issues overnight. Hospitalist Physical - Constitutional Vitals: Temp Pulse Resp BP Pulse Ox 98.6 F 74 19 118/57 99 06/28/19 08:20 06/28/19 09:36 06/28/19 08:42 06/28/19 09:36 06/28/19 08:42 General appearance: Present: no acute distress - EENT Eyes: Present: PERRL, EOM intact ENT: hearing intact, clear oral mucosa, dentition normal - Neck Neck: Present: supple, normal ROM - Respiratory Respiratory effort: normal Respiratory: bilateral: CTA - Cardiovascular Rhythm: regular Heart Sounds: Present: S1 & S2. Absent: gallop, rub - Extremities Extremities: no ischemia, No edema, Full ROM - Abdominal General gastrointestinal: soft, non-tender, non-distended, normal bowel sounds - Integumentary Integumentary: Present: clear, warm, dry - Neurologic Neurologic: CNII-XII intact, moves all extremities Results - Labs CBC & Chem 7: 06/28/19 07:41 06/28/19 07:41 Labs: Laboratory Last Values WBC 5.1 K/mm3 (4.5-11.0) 06/28/19 07:41 RBC 3.42 M/mm3 (3.65-5.03) L 06/28/19 07:41 Hgb 9.7 gm/dl (10.1-14.3) L 06/28/19 07:41 Hct 29.7 % (30.3-42.9) L 06/28/19 07:41 MCV 87 fl (79-97) 06/28/19 07:41 MCH 28 pg (28-32) 06/28/19 07:41 MCHC 33 % (30-34) 06/28/19 07:41 RDW 14.0 % (13.2-15.2) 06/28/19 07:41 Plt Count 270 K/mm3 (140-440) 06/28/19 07:41 Lymph % (Auto) 35.1 % (13.4-35.0) H 06/28/19 07:41 [place] % (Auto) 6.8 % (0.0-7.3) 06/28/19 07:41 Eos % (Auto) 2.7 % (0.0-4.3) 06/28/19 07:41 Baso % (Auto) 1.8 % (0.0-1.8) 06/28/19 07:41 Lymph # 1.8 K/mm3 (1.2-5.4) 06/28/19 07:41 [place] # 0.3 K/mm3 (0.0-0.8) 06/28/19 07:41 Eos # 0.1 K/mm3 (0.0-0.4) 06/28/19 07:41 Baso # 0.1 K/mm3 (0.0-0.1) 06/28/19 07:41 Seg Neutrophils % 53.6 % (40.0-70.0) 06/28/19 07:41 Seg Neutrophils # 2.7 K/mm3 (1.8-7.7) 06/28/19 07:41 PT 12.5 Sec. (12.2-14.9) 06/25/19 16:45 INR 0.96 (0.87-1.13) 06/25/19 16:45 APTT 34.7 Sec. (24.2-36.6) 06/25/19 16:45 Sodium 140 mmol/L (137-145) 06/28/19 07:41 Potassium 3.6 mmol/L (3.6-5.0) 06/28/19 07:41 Chloride 106.7 mmol/L (98-107) 06/28/19 07:41 Carbon Dioxide 23 mmol/L (22-30) 06/28/19 07:41 Anion Gap 14 mmol/L 06/28/19 07:41 BUN 34 mg/dL (7-17) H 06/28/19 07:41 Creatinine 3.1 mg/dL (0.7-1.2) H 06/28/19 07:41 Estimated GFR 18 ml/min 06/28/19 07:41 BUN/Creatinine Ratio 11 % 06/28/19 07:41 Glucose 155 mg/dL (65-100) H 06/28/19 07:41 POC Glucose 151 (70-105) H 06/28/19 08:30 Lactic Acid 0.60 mmol/L (0.7-2.0) L 06/26/19 13:27 Calcium 8.9 mg/dL (8.4-10.2) 06/28/19 07:41 Phosphorus 3.50 mg/dL (2.5-4.5) 06/28/19 07:41 Magnesium 1.70 mg/dL (1.7-2.3) 06/28/19 07:41 Total Bilirubin < 0.20 mg/dL (0.1-1.2) 06/26/19 05:00 Direct Bilirubin < 0.2 mg/dL (0-0.2) 06/25/19 16:45 Indirect Bilirubin 0.0 mg/dL 06/25/19 16:45 AST 16 units/L (5-40) 06/26/19 05:00 ALT 9 units/L (7-56) 06/26/19 05:00 Alkaline Phosphatase 131 units/L (35-129) H 06/26/19 05:00 Total Creatine Kinase 127 units/L (30-135) 06/25/19 18:04 Troponin T 0.065 ng/mL (0.00-0.029) H 06/25/19 16:45 Total Protein 6.9 g/dL (6.3-8.2) 06/26/19 05:00 Albumin 3.0 g/dL (3.9-5) L 06/26/19 05:00 Albumin/Globulin Ratio 0.8 % 06/26/19 05:00 Triglycerides 242 mg/dL (2-149) H 06/25/19 16:45 Cholesterol 330 mg/dL (50-199) H 06/25/19 16:45 LDL Cholesterol Direct 256 mg/dL (50-130) H 06/25/19 16:45 HDL Cholesterol 43 mg/dL (40-59) 06/25/19 16:45 Cholesterol/HDL Ratio 7.67 % 06/25/19 16:45 Urine Color Yellow (Yellow) 06/25/19 Unknown Urine Turbidity Turbid (Clear) 06/25/19 Unknown Urine pH 5.0 (5.0-7.0) 06/25/19 Unknown Ur Specific [place] 1.014 (1.003-1.030) 06/25/19 Unknown Urine Protein >500 mg/dL (Negative) 06/25/19 Unknown Urine Glucose (UA) >=500 mg/dL (Negative) 06/25/19 Unknown Urine Ketones Neg mg/dL (Negative) 06/25/19 Unknown Urine Blood Mod (Negative) 06/25/19 Unknown Urine Nitrite Neg (Negative) 06/25/19 Unknown Urine Bilirubin Neg (Negative) 06/25/19 Unknown Urine Urobilinogen < 2.0 mg/dL (<2.0) 06/25/19 Unknown Ur Leukocyte Esterase Lg (Negative) 06/25/19 Unknown Urine WBC (Auto) > 182.0 /HPF (0.0-6.0) H 06/25/19 Unknown Urine RBC (Auto) 12.0 /HPF (0.0-6.0) 06/25/19 Unknown U Epithel Cells (Auto) 1.0 /HPF (0-13.0) 06/25/19 Unknown Urine Bacteria (Auto) 4+ /HPF (Negative) 06/25/19 Unknown Urine WBC Clumps 3+ /HPF 06/25/19 Unknown Active Medications - Current Medications Current Medications: Generic Name Dose Route Start Last Admin Trade Name Freq PRN Reason Stop Dose Admin Albuterol 2.5 mg 06/25/19 20:12 Proventil IH Q3HRT PRN Shortness Of Breath Atorvastatin Calcium 40 mg 06/26/19 10:00 06/28/19 09:36 Lipitor PO 40 mg DAILY ZACARIAS Administration Carvedilol 25 mg 06/26/19 22:00 06/28/19 09:36 Coreg PO 25 mg BID ZACARIAS Administration Citalopram Hydrobromide 10 mg 06/26/19 10:00 06/28/19 09:37 Celexa PO 10 mg QDAY ZACARIAS Administration Clopidogrel Bisulfate 75 mg 06/26/19 10:00 06/28/19 09:36 Plavix PO 75 mg QDAY ZACARIAS Administration Furosemide 20 mg 06/26/19 06:00 06/28/19 06:43 Lasix IV 20 mg 0600,1800 ZACARIAS Administration Heparin Sodium (Porcine) 5,000 unit 06/26/19 10:00 06/28/19 09:38 Heparin SUB-Q 5,000 unit Q12HR ZACARIAS Administration Hydralazine HCl 5 mg 06/26/19 00:43 06/26/19 15:10 Apresoline IV 5 mg Q6H PRN Administration Hypertension Insulin Human Regular 0 units 06/26/19 16:30 06/28/19 08:00 Humulin R SUB-Q 2 units ACHS ZACARIAS Administration Protocol Levetiracetam 500 mg 06/25/19 22:00 06/28/19 09:36 Keppra PO 500 mg BID ZACARIAS Administration Nifedipine 60 mg 06/26/19 22:00 06/28/19 09:37 Procardia Xl PO 60 mg Q12HR ZACARIAS Administration Sodium Chloride 10 ml 06/25/19 22:00 06/28/19 09:35 Sodium Chloride Flush Syringe 10 Ml IV 10 ml BID ZACARIAS Administration Sodium Chloride 10 ml 06/25/19 20:12 Sodium Chloride Flush Syringe 10 Ml IV PRN PRN LINE FLUSH
[2019-06-29 06:09] LABS: Calcium 9.2 mg/dL (8.4-10.2)
[2019-06-29] MEDS: INSULIN REGULAR, HUMAN 100 UNITS/1 ML SUB-Q SCH ×3 (07:30→21:49)
[2019-06-29] MEDS: cefTRIAXone/NS 1 GM/50 ML 1 GM/50 ML BAG IV SCH (10:46)
[2019-06-29] MEDS: CLOPIDOGREL 75 MG TAB PO SCH (10:47)
[2019-06-29] MEDS: NIFEdipine XL 60 MG TAB PO SCH ×2 (10:47→21:48)
[2019-06-29] MEDS: CITALOPRAM 10 MG TAB PO SCH (10:47)
[2019-06-29] MEDS: levETIRAcetam 500 MG TAB PO SCH ×2 (10:47→21:48)
[2019-06-29] MEDS: carvediloL 25 MG TAB PO SCH ×2 (10:47→21:48)
[2019-06-29] MEDS: HEPARIN 5,000 UNIT/1 ML VIAL SUB-Q SCH ×2 (10:48→21:48)
--- NOTE | 2019-06-29 11:29 | Progress Note ---
Assessment and Plan 1. Acute kidney injury: Vasomotor ESEQUIEL superimposed on CKD stage 4 in the setting of volume depletion and hypotension. Creatinine level is same as yesterday. Monitor renal function. Avoid nephrotoxic agents. Meds dosage based on GFR. 2. FEN: Monitor lytes. 3. Sepsis: Likely from UTI. On Ceftriaxone. 4. Toxic metabolic encephalopathy. 5. Chronic Diastolic heart failure. 6. Seizure disorder: Continue AEDs and seizure precautions. 7. DM type 2. 8. Dementia. Examination: General appearance: well-developed, well-nourished, appears stated age, no distress EENT: ATNC, DIMA, mucous membranes moist, hearing intact, vision intact Neck: neck supple, trachea midline Respiratory: Clear to Ascultation Heart: regular, S1S2, no murmur Gastrointestinal: normoactive bowel sounds, no tender, ND Integumentary: no rash, warm and dry Neurologic: no asterixis, confused, disoriented, able to move all 4 extremities Musculoskeletal: no edema Psychiatric: cooperative Subjective Date of service: 06/29/19 Interval history: Patient was seen and examined at the bedside. Doing ok. Objective - Vital Signs Vital signs: Vital Signs - 12hr 06/29/19 06/29/19 06/29/19 00:00 02:30 04:31 Temperature 98.9 F 98.5 F Pulse Rate 73 71 Respiratory 18 18 18 Rate Blood Pressure 137/56 144/68 O2 Sat by Pulse 95 99 93 Oximetry 06/29/19 10:47 Temperature Pulse Rate 71 Respiratory Rate Blood Pressure 144/68 O2 Sat by Pulse Oximetry - Lab 06/28/19 07:41 06/29/19 05:10 Most recent lab results Calcium 9.2 mg/dL (8.4-10.2) 06/29/19 05:10 Phosphorus 3.50 mg/dL (2.5-4.5) 06/28/19 07:41 Magnesium 1.70 mg/dL (1.7-2.3) 06/28/19 07:41 Medications & Allergies - Medications Allergies/Adverse Reactions: Allergies No Known Allergies Allergy (Unverified 06/23/16 14:03) Home Medications: Home Medications Medication Instructions Recorded Confirmed Last Taken Type AtorvaSTATin [Lipitor] 40 mg PO DAILY #30 tablet 04/03/19 06/25/19 06/25/19 Rx Carvedilol [Coreg] 25 mg PO BID #60 tablet 04/03/19 06/25/19 06/25/19 Rx Citalopram [celeXA] 10 mg PO QDAY #30 tablet 04/03/19 06/25/19 06/25/19 Rx Clopidogrel [Plavix] 75 mg PO QDAY #30 tablet 04/03/19 06/25/19 06/25/19 Rx Furosemide [Lasix TAB] 40 mg PO QDAY #30 tablet 04/03/19 06/25/19 06/25/19 Rx Insulin Glargine,Hum.rec.anlog 15 units SUB-Q QAM 30 Days 04/03/19 06/25/19 06/25/19 Rx [Basaglar Kwikpen U-100] insuln.pen NIFEdipine [Nifedipine ER] 60 mg PO Q12H #60 tablet.er 04/03/19 06/25/19 06/25/19 Rx levETIRAcetam [Keppra TAB] 500 mg PO BID #60 tablet 04/03/19 06/25/19 06/25/19 Rx Active Medications: Generic Name Dose Route Start Last Admin Trade Name Freq PRN Reason Stop Dose Admin Albuterol 2.5 mg 06/25/19 20:12 Proventil IH Q3HRT PRN Shortness Of Breath Atorvastatin Calcium 40 mg 06/26/19 10:00 06/29/19 10:47 Lipitor PO 40 mg DAILY ZACARIAS Administration Carvedilol 25 mg 06/26/19 22:00 06/29/19 10:47 Coreg PO 25 mg BID ZACARIAS Administration Citalopram Hydrobromide 10 mg 06/26/19 10:00 06/29/19 10:47 Celexa PO 10 mg QDAY ZACARIAS Administration Clopidogrel Bisulfate 75 mg 06/26/19 10:00 06/29/19 10:47 Plavix PO 75 mg QDAY ZACARIAS Administration Heparin Sodium (Porcine) 5,000 unit 06/26/19 10:00 06/29/19 10:48 Heparin SUB-Q 5,000 unit Q12HR ZACARIAS Administration Hydralazine HCl 5 mg 06/26/19 00:43 06/26/19 15:10 Apresoline IV 5 mg Q6H PRN Administration Hypertension Ceftriaxone Sodium 1 gm in 50 mls @ 100 mls/hr 06/29/19 10:00 06/29/19 10:46 Rocephin/Ns 1 Gm/50 Ml IV 100 mls/hr Q24HR ZACARIAS Administration Insulin Human Regular 0 units 06/26/19 16:30 06/29/19 07:30 Humulin R SUB-Q Not Given ACHS ZACARIAS Protocol Levetiracetam 500 mg 06/25/19 22:00 06/29/19 10:47 Keppra PO 500 mg BID ZACARIAS Administration Nifedipine 60 mg 06/26/19 22:00 06/29/19 10:47 Procardia Xl PO 60 mg Q12HR ZACARIAS Administration Sodium Chloride 10 ml 06/25/19 22:00 06/29/19 10:48 Sodium Chloride Flush Syringe 10 Ml IV 10 ml BID ZACARIAS Administration Sodium Chloride 10 ml 06/25/19 20:12 Sodium Chloride Flush Syringe 10 Ml IV PRN PRN LINE FLUSH
--- NOTE | 2019-06-29 15:08 | Progress Note ---
Assessment and Plan Assessment and plan: Sepsis. Continue IV antibiotics. Blood culture negative, lactic acid level normal. Urine culture grew gram- positive beta-hemolytic streptococci Toxic metabolic encephalopathy - Resolved Acute on CKD IV. Etiology likely secondary to sepsis/ATN +/-vasomotor nephropathy and dehydration. Patient with creatinine of approximately 2.5 in December and March of 2019. CT scan showed no evidence of obstruction. Nephrology following. And okay for discharge UTI. Cont Rocephin. Culture as stated above. Seizure disorder. Continue AEDs and seizure precautions. Hypertension. Patient was actually hypotensive on admission. Continue IV fluid hydration and resume antihypertensive medications as needed. Diabetes mellitus type 2. Continue Accu-Cheks and slight scaliness. Chronic Diastolic heart failure. Compensated. Unsteady gait; patient is unsteady and PT was not consulted. PT consult this morning Disposition; possible discharge tomorrow. History Interval history: I have seen and evaluated this patient this morning No acute events overnight Patient was on fall precaution and didn't get out of the bed, I asked the patient to get out of the bed and walk around Patient was able to walk but a little bit wobbly Hospitalist Physical - Physical exam Narrative exam: Not in cardiopulmonary distress. The patient appeared well nourished and normally developed. Vital signs as documented. Head exam is unremarkable. No scleral icterus . Neck is without jugular venous distension, thyromegaly, or carotid bruits. Lungs are clear to auscultation. Cardiac exam reveals regular rate and Rhythm. Abdominal exam reveals normal bowel sounds, no masses, no organomegaly and no aortic enlargement. Extremities are nonedematous and both femoral and pedal pulses are normal. RESEARCH MECHANIC: Alert and oriented 3. No focal weakness. - Constitutional Vitals: Temp Pulse Resp BP Pulse Ox 98.4 F 69 18 141/70 96 06/29/19 12:32 06/29/19 12:32 06/29/19 12:32 06/29/19 12:32 06/29/19 12:32 General appearance: Present: no acute distress Results - Labs CBC & Chem 7: 06/28/19 07:41 06/29/19 05:10 Labs: Laboratory Last Values WBC 5.1 K/mm3 (4.5-11.0) 06/28/19 07:41 RBC 3.42 M/mm3 (3.65-5.03) L 06/28/19 07:41 Hgb 9.7 gm/dl (10.1-14.3) L 06/28/19 07:41 Hct 29.7 % (30.3-42.9) L 06/28/19 07:41 MCV 87 fl (79-97) 06/28/19 07:41 MCH 28 pg (28-32) 06/28/19 07:41 MCHC 33 % (30-34) 06/28/19 07:41 RDW 14.0 % (13.2-15.2) 06/28/19 07:41 Plt Count 270 K/mm3 (140-440) 06/28/19 07:41 Lymph % (Auto) 35.1 % (13.4-35.0) H 06/28/19 07:41 [place] % (Auto) 6.8 % (0.0-7.3) 06/28/19 07:41 Eos % (Auto) 2.7 % (0.0-4.3) 06/28/19 07:41 Baso % (Auto) 1.8 % (0.0-1.8) 06/28/19 07:41 Lymph # 1.8 K/mm3 (1.2-5.4) 06/28/19 07:41 [place] # 0.3 K/mm3 (0.0-0.8) 06/28/19 07:41 Eos # 0.1 K/mm3 (0.0-0.4) 06/28/19 07:41 Baso # 0.1 K/mm3 (0.0-0.1) 06/28/19 07:41 Seg Neutrophils % 53.6 % (40.0-70.0) 06/28/19 07:41 Seg Neutrophils # 2.7 K/mm3 (1.8-7.7) 06/28/19 07:41 PT 12.5 Sec. (12.2-14.9) 06/25/19 16:45 INR 0.96 (0.87-1.13) 06/25/19 16:45 APTT 34.7 Sec. (24.2-36.6) 06/25/19 16:45 Sodium 142 mmol/L (137-145) 06/29/19 05:10 Potassium 3.7 mmol/L (3.6-5.0) 06/29/19 05:10 Chloride 108.3 mmol/L (98-107) H 06/29/19 05:10 Carbon Dioxide 24 mmol/L (22-30) 06/29/19 05:10 Anion Gap 13 mmol/L 06/29/19 05:10 BUN 39 mg/dL (7-17) H 06/29/19 05:10 Creatinine 3.1 mg/dL (0.7-1.2) H 06/29/19 05:10 Estimated GFR 18 ml/min 06/29/19 05:10 BUN/Creatinine Ratio 13 % 06/29/19 05:10 Glucose 135 mg/dL (65-100) H 06/29/19 05:10 POC Glucose 166 (70-105) H 06/29/19 11:57 Lactic Acid 0.60 mmol/L (0.7-2.0) L 06/26/19 13:27 Calcium 9.2 mg/dL (8.4-10.2) 06/29/19 05:10 Phosphorus 3.50 mg/dL (2.5-4.5) 06/28/19 07:41 Magnesium 1.70 mg/dL (1.7-2.3) 06/28/19 07:41 Total Bilirubin < 0.20 mg/dL (0.1-1.2) 06/26/19 05:00 Direct Bilirubin < 0.2 mg/dL (0-0.2) 06/25/19 16:45 Indirect Bilirubin 0.0 mg/dL 06/25/19 16:45 AST 16 units/L (5-40) 06/26/19 05:00 ALT 9 units/L (7-56) 06/26/19 05:00 Alkaline Phosphatase 131 units/L (35-129) H 06/26/19 05:00 Total Creatine Kinase 127 units/L (30-135) 06/25/19 18:04 Troponin T 0.065 ng/mL (0.00-0.029) H 06/25/19 16:45 Total Protein 6.9 g/dL (6.3-8.2) 06/26/19 05:00 Albumin 3.0 g/dL (3.9-5) L 06/26/19 05:00 Albumin/Globulin Ratio 0.8 % 06/26/19 05:00 Triglycerides 242 mg/dL (2-149) H 06/25/19 16:45 Cholesterol 330 mg/dL (50-199) H 06/25/19 16:45 LDL Cholesterol Direct 256 mg/dL (50-130) H 06/25/19 16:45 HDL Cholesterol 43 mg/dL (40-59) 06/25/19 16:45 Cholesterol/HDL Ratio 7.67 % 06/25/19 16:45 Urine Color Yellow (Yellow) 06/25/19 Unknown Urine Turbidity Turbid (Clear) 06/25/19 Unknown Urine pH 5.0 (5.0-7.0) 06/25/19 Unknown Ur Specific [place] 1.014 (1.003-1.030) 06/25/19 Unknown Urine Protein >500 mg/dL (Negative) 06/25/19 Unknown Urine Glucose (UA) >=500 mg/dL (Negative) 06/25/19 Unknown Urine Ketones Neg mg/dL (Negative) 06/25/19 Unknown Urine Blood Mod (Negative) 06/25/19 Unknown Urine Nitrite Neg (Negative) 06/25/19 Unknown Urine Bilirubin Neg (Negative) 06/25/19 Unknown Urine Urobilinogen < 2.0 mg/dL (<2.0) 06/25/19 Unknown Ur Leukocyte Esterase Lg (Negative) 06/25/19 Unknown Urine WBC (Auto) > 182.0 /HPF (0.0-6.0) H 06/25/19 Unknown Urine RBC (Auto) 12.0 /HPF (0.0-6.0) 06/25/19 Unknown U Epithel Cells (Auto) 1.0 /HPF (0-13.0) 06/25/19 Unknown Urine Bacteria (Auto) 4+ /HPF (Negative) 06/25/19 Unknown Urine WBC Clumps 3+ /HPF 06/25/19 Unknown Active Medications - Current Medications Current Medications: Generic Name Dose Route Start Last Admin Trade Name Freq PRN Reason Stop Dose Admin Albuterol 2.5 mg 06/25/19 20:12 Proventil IH Q3HRT PRN Shortness Of Breath Atorvastatin Calcium 40 mg 06/26/19 10:00 06/29/19 10:47 Lipitor PO 40 mg DAILY ZACARIAS Administration Carvedilol 25 mg 06/26/19 22:00 06/29/19 10:47 Coreg PO 25 mg BID ZACARIAS Administration Citalopram Hydrobromide 10 mg 06/26/19 10:00 06/29/19 10:47 Celexa PO 10 mg QDAY ZACARIAS Administration Clopidogrel Bisulfate 75 mg 06/26/19 10:00 06/29/19 10:47 Plavix PO 75 mg QDAY ZACARIAS Administration Heparin Sodium (Porcine) 5,000 unit 06/26/19 10:00 06/29/19 10:48 Heparin SUB-Q 5,000 unit Q12HR ZACARIAS Administration Hydralazine HCl 5 mg 06/26/19 00:43 06/26/19 15:10 Apresoline IV 5 mg Q6H PRN Administration Hypertension Ceftriaxone Sodium 1 gm in 50 mls @ 100 mls/hr 06/29/19 10:00 06/29/19 10:46 Rocephin/Ns 1 Gm/50 Ml IV 100 mls/hr Q24HR ZACARIAS Administration Insulin Human Regular 0 units 06/26/19 16:30 06/29/19 12:16 Humulin R SUB-Q 2 units ACHS ZACARIAS Administration Protocol Levetiracetam 500 mg 06/25/19 22:00 06/29/19 10:47 Keppra PO 500 mg BID ZACARIAS Administration Nifedipine 60 mg 06/26/19 22:00 06/29/19 10:47 Procardia Xl PO 60 mg Q12HR ZACARIAS Administration Sodium Chloride 10 ml 06/25/19 22:00 06/29/19 10:48 Sodium Chloride Flush Syringe 10 Ml IV 10 ml BID ZACARIAS Administration Sodium Chloride 10 ml 06/25/19 20:12 Sodium Chloride Flush Syringe 10 Ml IV PRN PRN LINE FLUSH
[2019-06-30 06:33] LABS: Calcium 9.4 mg/dL (8.4-10.2)
[2019-06-30] MEDS: INSULIN REGULAR, HUMAN 100 UNITS/1 ML SUB-Q SCH ×4 (08:51→21:24)
[2019-06-30] MEDS ORDERED: POTASSIUM CHLORIDE ER 20 MEQ TAB PO ONE (09:00)
[2019-06-30] MEDS: CLOPIDOGREL 75 MG TAB PO SCH (09:21)
[2019-06-30] MEDS: NIFEdipine XL 60 MG TAB PO SCH ×2 (09:22→21:25)
[2019-06-30] MEDS: levETIRAcetam 500 MG TAB PO SCH ×2 (09:22→21:25)
[2019-06-30] MEDS: carvediloL 25 MG TAB PO SCH ×2 (09:22→21:24)
[2019-06-30] MEDS: CITALOPRAM 10 MG TAB PO SCH (09:23)
[2019-06-30] MEDS: HEPARIN 5,000 UNIT/1 ML VIAL SUB-Q SCH ×2 (09:24→21:25)
[2019-06-30] MEDS: cefTRIAXone/NS 1 GM/50 ML 1 GM/50 ML BAG IV SCH (09:24)
--- NOTE | 2019-06-30 12:10 | Progress Note ---
Assessment and Plan 1. Acute kidney injury: Vasomotor ESEQUIEL superimposed on CKD stage 4 in the setting of volume depletion and hypotension. Creatinine level is same as yesterday. Monitor renal function. Avoid nephrotoxic agents. Meds dosage based on GFR. 2. FEN: Monitor lytes. 3. Sepsis: Likely from UTI. On Ceftriaxone. 4. Toxic metabolic encephalopathy. 5. Chronic Diastolic heart failure. 6. Seizure disorder: Continue AEDs and seizure precautions. 7. DM type 2. 8. Dementia. Examination: General appearance: well-developed, well-nourished, appears stated age, no distress EENT: ATNC, DIMA, mucous membranes moist, hearing intact, vision intact Neck: neck supple, trachea midline Respiratory: Clear to Ascultation Heart: regular, S1S2, no murmur Gastrointestinal: normoactive bowel sounds, no tender, ND Integumentary: no rash, warm and dry Neurologic: no asterixis, confused, disoriented, able to move all 4 extremities Musculoskeletal: no edema Psychiatric: cooperative Subjective Date of service: 06/30/19 Interval history: Patient was seen and examined at the bedside. Doing ok. Objective - Vital Signs Vital signs: Vital Signs - 12hr 06/30/19 06/30/19 06/30/19 03:58 08:06 09:22 Temperature 98.5 F Pulse Rate 69 70 70 Respiratory 18 Rate Blood Pressure 112/49 142/66 142/66 O2 Sat by Pulse 93 97 Oximetry - Lab 06/28/19 07:41 06/30/19 04:21 Most recent lab results Calcium 9.4 mg/dL (8.4-10.2) 06/30/19 04:21 Phosphorus 3.50 mg/dL (2.5-4.5) 06/28/19 07:41 Magnesium 1.70 mg/dL (1.7-2.3) 06/28/19 07:41 Medications & Allergies - Medications Allergies/Adverse Reactions: Allergies No Known Allergies Allergy (Unverified 06/23/16 14:03) Home Medications: Home Medications Medication Instructions Recorded Confirmed Last Taken Type AtorvaSTATin [Lipitor] 40 mg PO DAILY #30 tablet 04/03/19 06/25/19 06/25/19 Rx Carvedilol [Coreg] 25 mg PO BID #60 tablet 04/03/19 06/25/19 06/25/19 Rx Citalopram [celeXA] 10 mg PO QDAY #30 tablet 04/03/19 06/25/19 06/25/19 Rx Clopidogrel [Plavix] 75 mg PO QDAY #30 tablet 04/03/19 06/25/19 06/25/19 Rx Furosemide [Lasix TAB] 40 mg PO QDAY #30 tablet 04/03/19 06/25/19 06/25/19 Rx Insulin Glargine,Hum.rec.anlog 15 units SUB-Q QAM 30 Days 04/03/19 06/25/19 06/25/19 Rx [Basaglar Kwikpen U-100] insuln.pen NIFEdipine [Nifedipine ER] 60 mg PO Q12H #60 tablet.er 04/03/19 06/25/19 06/25/19 Rx levETIRAcetam [Keppra TAB] 500 mg PO BID #60 tablet 04/03/19 06/25/19 06/25/19 Rx Active Medications: Generic Name Dose Route Start Last Admin Trade Name Freq PRN Reason Stop Dose Admin Albuterol 2.5 mg 06/25/19 20:12 Proventil IH Q3HRT PRN Shortness Of Breath Atorvastatin Calcium 40 mg 06/26/19 10:00 06/30/19 09:23 Lipitor PO 40 mg DAILY ZACARIAS Administration Carvedilol 25 mg 06/26/19 22:00 06/30/19 09:22 Coreg PO 25 mg BID ZACARIAS Administration Citalopram Hydrobromide 10 mg 06/26/19 10:00 06/30/19 09:23 Celexa PO 10 mg QDAY ZACARIAS Administration Clopidogrel Bisulfate 75 mg 06/26/19 10:00 06/30/19 09:21 Plavix PO 75 mg QDAY ZACARIAS Administration Heparin Sodium (Porcine) 5,000 unit 06/26/19 10:00 06/30/19 09:24 Heparin SUB-Q 5,000 unit Q12HR ZACARIAS Administration Hydralazine HCl 5 mg 06/26/19 00:43 06/26/19 15:10 Apresoline IV 5 mg Q6H PRN Administration Hypertension Ceftriaxone Sodium 1 gm in 50 mls @ 100 mls/hr 06/29/19 10:00 06/30/19 09:24 Rocephin/Ns 1 Gm/50 Ml IV 100 mls/hr Q24HR ZACARIAS Administration Insulin Human Regular 0 units 06/26/19 16:30 06/30/19 08:51 Humulin R SUB-Q 2 units ACHS ZACARIAS Administration Protocol Levetiracetam 500 mg 06/25/19 22:00 06/30/19 09:22 Keppra PO 500 mg BID ZACARIAS Administration Nifedipine 60 mg 06/26/19 22:00 06/30/19 09:22 Procardia Xl PO 60 mg Q12HR ZACARIAS Administration Sodium Chloride 10 ml 06/25/19 22:00 06/30/19 09:24 Sodium Chloride Flush Syringe 10 Ml IV 10 ml BID ZACARIAS Administration Sodium Chloride 10 ml 06/25/19 20:12 Sodium Chloride Flush Syringe 10 Ml IV PRN PRN LINE FLUSH
--- NOTE | 2019-06-30 13:06 | Progress Note ---
Assessment and Plan Assessment and plan: Sepsis. Continue IV antibiotics. Blood culture negative, lactic acid level normal. Urine culture grew gram- positive beta-hemolytic streptococci Toxic metabolic encephalopathy - Resolved Acute on CKD IV. Etiology likely secondary to sepsis/ATN +/-vasomotor nephropathy and dehydration. Patient with creatinine of approximately 2.5 in December and March of 2019. CT scan showed no evidence of obstruction. Nephrology following. And okay for discharge UTI. Cont Rocephin. Culture as stated above. Seizure disorder. Continue AEDs and seizure precautions. Hypertension. Patient was actually hypotensive on admission. Continue IV fluid hydration and resume antihypertensive medications as needed. Diabetes mellitus type 2. Continue Accu-Cheks and slight scaliness. Chronic Diastolic heart failure. Compensated. Unsteady gait; patient is unsteady and PT was not consulted. PT consult this morning Disposition; possible discharge tomorrow. History Interval history: I have seen and evaluated this patient this morning No acute events overnight Patient was on fall precaution and didn't get out of the bed, I asked the patient to get out of the bed and walk around Patient was able to walk but wobbly Hospitalist Physical - Physical exam Narrative exam: Not in cardiopulmonary distress. The patient appeared well nourished and normally developed. Vital signs as documented. Head exam is unremarkable. No scleral icterus . Neck is without jugular venous distension, thyromegaly, or carotid bruits. Lungs are clear to auscultation. Cardiac exam reveals regular rate and Rhythm. Abdominal exam reveals normal bowel sounds, no masses, no organomegaly and no aortic enlargement. Extremities are nonedematous and both femoral and pedal pulses are normal. SOLAR INSTALLER PV: Alert and oriented 3. No focal weakness. - Constitutional Vitals: Temp Pulse Resp BP Pulse Ox 98.3 F 66 18 146/69 98 06/30/19 12:19 06/30/19 12:19 06/30/19 12:19 06/30/19 12:19 06/30/19 12:19 General appearance: Present: no acute distress Results - Labs CBC & Chem 7: 06/28/19 07:41 06/30/19 04:21 Labs: Laboratory Last Values WBC 5.1 K/mm3 (4.5-11.0) 06/28/19 07:41 RBC 3.42 M/mm3 (3.65-5.03) L 06/28/19 07:41 Hgb 9.7 gm/dl (10.1-14.3) L 06/28/19 07:41 Hct 29.7 % (30.3-42.9) L 06/28/19 07:41 MCV 87 fl (79-97) 06/28/19 07:41 MCH 28 pg (28-32) 06/28/19 07:41 MCHC 33 % (30-34) 06/28/19 07:41 RDW 14.0 % (13.2-15.2) 06/28/19 07:41 Plt Count 270 K/mm3 (140-440) 06/28/19 07:41 Lymph % (Auto) 35.1 % (13.4-35.0) H 06/28/19 07:41 [place] % (Auto) 6.8 % (0.0-7.3) 06/28/19 07:41 Eos % (Auto) 2.7 % (0.0-4.3) 06/28/19 07:41 Baso % (Auto) 1.8 % (0.0-1.8) 06/28/19 07:41 Lymph # 1.8 K/mm3 (1.2-5.4) 06/28/19 07:41 [place] # 0.3 K/mm3 (0.0-0.8) 06/28/19 07:41 Eos # 0.1 K/mm3 (0.0-0.4) 06/28/19 07:41 Baso # 0.1 K/mm3 (0.0-0.1) 06/28/19 07:41 Seg Neutrophils % 53.6 % (40.0-70.0) 06/28/19 07:41 Seg Neutrophils # 2.7 K/mm3 (1.8-7.7) 06/28/19 07:41 PT 12.5 Sec. (12.2-14.9) 06/25/19 16:45 INR 0.96 (0.87-1.13) 06/25/19 16:45 APTT 34.7 Sec. (24.2-36.6) 06/25/19 16:45 Sodium 140 mmol/L (137-145) 06/30/19 04:21 Potassium 3.5 mmol/L (3.6-5.0) L 06/30/19 04:21 Chloride 108.1 mmol/L (98-107) H 06/30/19 04:21 Carbon Dioxide 20 mmol/L (22-30) L 06/30/19 04:21 Anion Gap 15 mmol/L 06/30/19 04:21 BUN 42 mg/dL (7-17) H 06/30/19 04:21 Creatinine 3.1 mg/dL (0.7-1.2) H 06/30/19 04:21 Estimated GFR 18 ml/min 06/30/19 04:21 BUN/Creatinine Ratio 14 % 06/30/19 04:21 Glucose 157 mg/dL (65-100) H 06/30/19 04:21 POC Glucose 142 (70-105) H 06/30/19 12:17 Lactic Acid 0.60 mmol/L (0.7-2.0) L 06/26/19 13:27 Calcium 9.4 mg/dL (8.4-10.2) 06/30/19 04:21 Phosphorus 3.50 mg/dL (2.5-4.5) 06/28/19 07:41 Magnesium 1.70 mg/dL (1.7-2.3) 06/28/19 07:41 Total Bilirubin < 0.20 mg/dL (0.1-1.2) 06/26/19 05:00 Direct Bilirubin < 0.2 mg/dL (0-0.2) 06/25/19 16:45 Indirect Bilirubin 0.0 mg/dL 06/25/19 16:45 AST 16 units/L (5-40) 06/26/19 05:00 ALT 9 units/L (7-56) 06/26/19 05:00 Alkaline Phosphatase 131 units/L (35-129) H 06/26/19 05:00 Total Creatine Kinase 127 units/L (30-135) 06/25/19 18:04 Troponin T 0.065 ng/mL (0.00-0.029) H 06/25/19 16:45 Total Protein 6.9 g/dL (6.3-8.2) 06/26/19 05:00 Albumin 3.0 g/dL (3.9-5) L 06/26/19 05:00 Albumin/Globulin Ratio 0.8 % 06/26/19 05:00 Triglycerides 242 mg/dL (2-149) H 06/25/19 16:45 Cholesterol 330 mg/dL (50-199) H 06/25/19 16:45 LDL Cholesterol Direct 256 mg/dL (50-130) H 06/25/19 16:45 HDL Cholesterol 43 mg/dL (40-59) 06/25/19 16:45 Cholesterol/HDL Ratio 7.67 % 06/25/19 16:45 Urine Color Yellow (Yellow) 06/25/19 Unknown Urine Turbidity Turbid (Clear) 06/25/19 Unknown Urine pH 5.0 (5.0-7.0) 06/25/19 Unknown Ur Specific [place] 1.014 (1.003-1.030) 06/25/19 Unknown Urine Protein >500 mg/dL (Negative) 06/25/19 Unknown Urine Glucose (UA) >=500 mg/dL (Negative) 06/25/19 Unknown Urine Ketones Neg mg/dL (Negative) 06/25/19 Unknown Urine Blood Mod (Negative) 06/25/19 Unknown Urine Nitrite Neg (Negative) 06/25/19 Unknown Urine Bilirubin Neg (Negative) 06/25/19 Unknown Urine Urobilinogen < 2.0 mg/dL (<2.0) 06/25/19 Unknown Ur Leukocyte Esterase Lg (Negative) 06/25/19 Unknown Urine WBC (Auto) > 182.0 /HPF (0.0-6.0) H 06/25/19 Unknown Urine RBC (Auto) 12.0 /HPF (0.0-6.0) 06/25/19 Unknown U Epithel Cells (Auto) 1.0 /HPF (0-13.0) 06/25/19 Unknown Urine Bacteria (Auto) 4+ /HPF (Negative) 06/25/19 Unknown Urine WBC Clumps 3+ /HPF 06/25/19 Unknown Active Medications - Current Medications Current Medications: Generic Name Dose Route Start Last Admin Trade Name Freq PRN Reason Stop Dose Admin Albuterol 2.5 mg 06/25/19 20:12 Proventil IH Q3HRT PRN Shortness Of Breath Atorvastatin Calcium 40 mg 06/26/19 10:00 06/30/19 09:23 Lipitor PO 40 mg DAILY ZACARIAS Administration Carvedilol 25 mg 06/26/19 22:00 06/30/19 09:22 Coreg PO 25 mg BID ZACARIAS Administration Citalopram Hydrobromide 10 mg 06/26/19 10:00 06/30/19 09:23 Celexa PO 10 mg QDAY ZACARIAS Administration Clopidogrel Bisulfate 75 mg 06/26/19 10:00 06/30/19 09:21 Plavix PO 75 mg QDAY ZACARIAS Administration Heparin Sodium (Porcine) 5,000 unit 06/26/19 10:00 06/30/19 09:24 Heparin SUB-Q 5,000 unit Q12HR ZACARIAS Administration Hydralazine HCl 5 mg 06/26/19 00:43 06/26/19 15:10 Apresoline IV 5 mg Q6H PRN Administration Hypertension Ceftriaxone Sodium 1 gm in 50 mls @ 100 mls/hr 06/29/19 10:00 06/30/19 09:24 Rocephin/Ns 1 Gm/50 Ml IV 100 mls/hr Q24HR ZACARIAS Administration Insulin Human Regular 0 units 06/26/19 16:30 06/30/19 08:51 Humulin R SUB-Q 2 units ACHS ZACARIAS Administration Protocol Levetiracetam 500 mg 06/25/19 22:00 06/30/19 09:22 Keppra PO 500 mg BID ZACARIAS Administration Nifedipine 60 mg 06/26/19 22:00 06/30/19 09:22 Procardia Xl PO 60 mg Q12HR ZACARIAS Administration Sodium Chloride 10 ml 06/25/19 22:00 06/30/19 09:24 Sodium Chloride Flush Syringe 10 Ml IV 10 ml BID ZACARIAS Administration Sodium Chloride 10 ml 06/25/19 20:12 Sodium Chloride Flush Syringe 10 Ml IV PRN PRN LINE FLUSH
[2019-07-01 05:37] LABS: Calcium 9.5 mg/dL (8.4-10.2)
[2019-07-01] MEDS: INSULIN REGULAR, HUMAN 100 UNITS/1 ML SUB-Q SCH (08:00)
[2019-07-01] MEDS: CITALOPRAM 10 MG TAB PO SCH (09:57)
[2019-07-01] MEDS: HEPARIN 5,000 UNIT/1 ML VIAL SUB-Q SCH (09:57)
[2019-07-01] MEDS: CLOPIDOGREL 75 MG TAB PO SCH (09:57)
[2019-07-01] MEDS: NIFEdipine XL 60 MG TAB PO SCH (09:57)
[2019-07-01] MEDS: cefTRIAXone/NS 1 GM/50 ML 1 GM/50 ML BAG IV SCH (09:59)
[2019-07-01] MEDS: carvediloL 25 MG TAB PO SCH (10:03)
--- NOTE | 2019-07-01 10:22 | Discharge Summary ---
Providers - Providers Date of Admission: 06/25/19 20:13 Attending physician: TAMIA LEVINE MD 06/27/19 10:14 Consult to Physician [CONS] Routine Comment: Consulting Provider: SIENNA GU Physician Instructions: Reason For Exam: ARF on prob CKD 06/29/19 11:25 Physical Therapy Evaluation and Treat [CONS] Routine Comment: Reason For Exam: deconditioning [facility] Reason for admission: sepsis, altered mental status, Acute on chronic renal failure Condition: Stable Pertinent studies: CT abdomen and pelvis CT head Hospital course: 68 YO Female with HTN, DM, Dementia, Diastolic CHF, 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 Pt is confused and unable to provide detailed history. Pt history provided by daughter who is at bedside during exam and interview. As per daughter, the patient has experienced increased confusion and decreased oral intake over the past 1 week. Patient daughter reports decreased interaction with family as well as complaining of dizziness and feeling lightheaded. EMS was notified, and upon arrival the patient was found to have hypotension with SBP in the 80's. Patient transported to [facility]. Pt seen and evaluated in ED and found to have Sepsis secondary to UTI, Acute Kidney Injury, and Encephalopathy. Pt initiated on Sepsis protocol and admitted to IMCU. Patient SBP remained in the 80's after resuscitation with IV fluid. No reports of Fever, Chills, Headache, NVD, CP, Shortness of Breath, Abdominal pain, Skin Rash, or recent ill contacts. Patient has GCS of 10 on initial exam. QSofa Score:4. Prior admission on 03/29/19 reviewed. Sepsis; patient was treated according to sepsis protocol with IV antibiotics and IV fluids. Urine culture grew gram-positive beta-hemolytic streptococci. Patient finished a course of antibiotics. Pressure controlled, no fever or chills. Toxic metabolic encephalopathy; Resolved, patient was alert and oriented wants to go home Acute on CKD IV; etiology likely secondary to sepsis/ATN +/-vasomotor nephropathy and dehydration. Patient with creatinine of approximately 2.5 in December and March of 2019. CT scan showed no evidence of obstruction. Nephrology following and okay for discharge will follow the patient in the office. Seizure disorder. Continue AEDs and seizure precautions. No seizure episode while in the hospital. Hypertension; was treated with IV fluids and blood pressure is holding. Diabetes mellitus type 2; continue with home medications Chronic Diastolic heart failure. Compensated. Unsteady gait; PT consulted and recommended no need. Patient discharged home with home medications. Patient was hemodynamically stable at the time of discharge. Disposition: [id number] HOME UNDER HOME [facility] Time spent for discharge: 32 minutes - Discharge Diagnoses (1) Encephalopathy Status: Acute (2) UTI (urinary tract infection) Status: Acute Qualifiers: Encounter type: initial encounter Core Measure Documentation - Palliative Care Palliative Care/ Comfort Measures: Not Applicable - Core Measures Any of the following diagnoses?: none Exam - Physical Exam Narrative exam: Not in cardiopulmonary distress. The patient appeared well nourished and normally developed. Vital signs as documented. Head exam is unremarkable. No scleral icterus . Neck is without jugular venous distension, thyromegaly, or carotid bruits. Lungs are clear to auscultation. Cardiac exam reveals regular rate and Rhythm. Abdominal exam reveals normal bowel sounds, no masses, no organomegaly and no aortic enlargement. Extremities are nonedematous and both femoral and pedal pulses are normal. ELECTRONIC SECURITY TECHNICIAN: Alert and oriented 3. No focal weakness. - Constitutional Vitals: Temp Pulse Resp BP Pulse Ox 98.3 F 68 14 144/69 93 07/01/19 07:33 07/01/19 07:33 07/01/19 07:33 07/01/19 07:33 07/01/19 07:33 Plan Activity: no restrictions Weight Bearing Status: Full Weight Bearing Diet: low salt, diabetic Follow up with: [facility] MD PRECIOUS [Primary Care Provider] - 7 Days SIENNA GU MD [Staff Physician] - 7 Days Prescriptions: Insulin Glargine,Hum.rec.anlog [Basaglar Kwikpen U-100] 15 units SUB-Q QAM 30 Days insuln.pen Citalopram [celeXA] 10 mg PO QDAY #30 tablet Carvedilol [Coreg] 25 mg PO BID #60 tablet levETIRAcetam [Keppra TAB] 500 mg PO BID #60 tablet AtorvaSTATin [Lipitor] 40 mg PO DAILY #30 tablet NIFEdipine [Nifedipine ER] 60 mg PO Q12H #60 tablet.er Clopidogrel [Plavix] 75 mg PO QDAY #30 tablet
[2019-07-01 10:23] VITALS: BP 136/65
[2019-07-01] MEDS: levETIRAcetam 500 MG TAB PO SCH (10:46)
== END 2019-07-01 11:56 | disposition home health service (06) | DRG 871 ==
LOC: ED 16:04 → IMCU 20:13 → CC1 23:05 → 4A 06-26 18:27
PROVIDERS: ADMIT Internal Medicine; ATTEND Internal Medicine
DX: A40.8 Other streptococcal sepsis (principal); G92 Toxic encephalopathy; N17.0 Acute kidney failure with tubular necrosis; I50.33 Acute on chronic diastolic (congestive) heart failure; N39.0 Urinary tract infection, site not specified; I69.351 Hemiplegia and hemiparesis following cerebral infarction affecting right dominant side; I13.0 Hypertensive heart and chronic kidney disease with heart failure and stage 1 through stage 4 chronic kidney disease, or unspecified chronic kidney disease; N18.4 Chronic kidney disease, stage 4 (severe); E11.22 Type 2 diabetes mellitus with diabetic chronic kidney disease; F03.90 Unspecified dementia, unspecified severity, without behavioral disturbance, psychotic disturbance, mood disturbance, and anxiety; E86.0 Dehydration; G40.909 Epilepsy, unspecified, not intractable, without status epilepticus; M19.90 Unspecified osteoarthritis, unspecified site; R26.81 Unsteadiness on feet; Z82.49 Family history of ischemic heart disease and other diseases of the circulatory system; Z83.3 Family history of diabetes mellitus; Z79.899 Other long term (current) drug therapy; Z79.4 Long term (current) use of insulin
CPT/HCPCS: 36415; 70450; 71045; 74176; 80048; 80053; 80061; 80076; 81001; 82140; 82550; 82962; 83735; 84100; 84484; 85025; 85610; 85730; 87040; 87086; 93005; 93010; 94640; 96361; 96365; 96375; G0378; A9270-GY; J0360; J0696; J1644; J1815; J1940; J7030

== ENCOUNTER 2020-01-12 14:03 | Emergency (ER) | payer MEDICARE ==
--- NOTE | 2020-01-12 14:52 | Emergency Department Report ---
ED General Adult HPI - General Chief complaint: High BP Stated complaint: HIGH BLOOD PRESSURE Time Seen by Provider: 01/12/20 14:12 Source: patient, EMS Mode of arrival: Stretcher Limitations: No Limitations - History of Present Illness Initial comments: 69-year-old female the past medical history of end-stage renal disease on dialysis Friday, Friday, and Friday, diastolic heart failure, dementia, diabetes, and hypertension presents to the hospital center for elevated blood pressure. Patient states she did take her meds this morning. She did not receive dialysis today because her blood pressure was high and did not reduce with clonidine at the clinic. Patient is asymptomatic and denies headache, chest pain, or shortness of breath and states she makes urine. Alterations Sewer as per paperwork from dialysis Dr Gu Severity scale (0 -10): 0 - Related Data Home Medications Medication Instructions Recorded Confirmed Last Taken Aspirin [Aspirin BABY CHEW TAB] 81 mg PO QDAY 01/12/20 01/12/20 Unknown Ferrous Sulfate [Iron 325 MG] 325 mg PO DAILY 01/12/20 01/12/20 Unknown Insulin Glargine,Hum.rec.anlog 15 units SUB-Q QAM PRN 01/12/20 01/12/20 Unknown [Basaglar Kwikpen U-100] NIFEdipine [Nifedipine ER] 60 mg PO HS 01/12/20 01/12/20 Unknown Torsemide [Demadex] 20 mg PO DAILY 01/12/20 01/12/20 Unknown amLODIPine [Norvasc] 10 mg PO DAILY 01/12/20 01/12/20 Unknown levETIRAcetam [Keppra TAB] 500 mg PO DAILY 01/12/20 01/12/20 Unknown minoxidiL [Loniten] 2.5 mg PO BID 01/12/20 01/12/20 Unknown Previous Rx's Medication Instructions Recorded Last Taken Type AtorvaSTATin [Lipitor] 40 mg PO DAILY #30 tablet 07/01/19 Unknown Rx Citalopram [celeXA] 10 mg PO QDAY #30 tablet 07/01/19 Unknown Rx Clopidogrel [Plavix] 75 mg PO QDAY #30 tablet 07/01/19 Unknown Rx carvediloL [Coreg] 25 mg PO BID #60 tablet 07/01/19 Unknown Rx Allergies Allergy/AdvReac Type Severity Reaction Status Date / Time No Known Allergies Allergy Unverified 06/23/16 14:03 ED Review of Systems ROS: Stated complaint: HIGH BLOOD PRESSURE Other details as noted in HPI Comment: All other systems reviewed and negative ED Past Medical Hx - Past Medical History Hx Hypertension: Yes Hx Heart Attack/AMI: No Hx Congestive Heart Failure: Yes (Diastolic) Hx Diabetes: Yes Hx Liver Disease: No Hx Renal Disease: Yes (Stage 4, CKD) Hx Arthritis: Yes Hx Seizures: Yes Hx Dementia: Yes Hx HIV: No Additional medical history: dementia - Surgical History Additional Surgical History: Vas Cath right chest wall - Social History Smoking Status: Never Smoker Substance Use Type: None - Medications Home Medications: Home Medications Medication Instructions Recorded Confirmed Last Taken Type AtorvaSTATin [Lipitor] 40 mg PO DAILY #30 tablet 07/01/19 01/12/20 Unknown Rx Citalopram [celeXA] 10 mg PO QDAY #30 tablet 07/01/19 01/12/20 Unknown Rx Clopidogrel [Plavix] 75 mg PO QDAY #30 tablet 07/01/19 01/12/20 Unknown Rx carvediloL [Coreg] 25 mg PO BID #60 tablet 07/01/19 01/12/20 Unknown Rx Aspirin [Aspirin BABY CHEW TAB] 81 mg PO QDAY 01/12/20 01/12/20 Unknown History Ferrous Sulfate [Iron 325 MG] 325 mg PO DAILY 01/12/20 01/12/20 Unknown History Insulin Glargine,Hum.rec.anlog 15 units SUB-Q QAM PRN 01/12/20 01/12/20 Unknown History [Basaglar Kwikpen U-100] NIFEdipine [Nifedipine ER] 60 mg PO HS 01/12/20 01/12/20 Unknown History Torsemide [Demadex] 20 mg PO DAILY 01/12/20 01/12/20 Unknown History amLODIPine [Norvasc] 10 mg PO DAILY 01/12/20 01/12/20 Unknown History levETIRAcetam [Keppra TAB] 500 mg PO DAILY 01/12/20 01/12/20 Unknown History minoxidiL [Loniten] 2.5 mg PO BID 01/12/20 01/12/20 Unknown History ED Physical Exam - General Limitations: No Limitations - Other Other exam information: General: No acute distress Head: Atraumatic Eyes: normal appearance ENT: Moist mucous membranes Neck: Normal appearance, no midline tenderness Chest: Clear to auscultation bilaterally. Right-sided chest wall dialysis access CV: Regular rate and rhythm Abdomen: Soft, normal bowel sounds, nontender, nondistended, no rebound or guarding Back: Normal inspection Extremity: Normal inspection, full range of motion, no calf tenderness or leg edema Neuro: Alert, no facial asymmetry, speech clear, no gross motor sensory deficit Psych: Appropriate behavior Skin: No rash ED Course Vital Signs 01/12/20 01/12/20 01/12/20 14:15 14:49 15:07 Temperature 98.2 F Pulse Rate 71 64 63 Respiratory 16 16 Rate Blood Pressure 223/112 Blood Pressure 237/100 203/96 [Left] O2 Sat by Pulse 99 Oximetry 01/12/20 01/12/20 01/12/20 15:33 17:00 18:00 Temperature Pulse Rate 66 64 66 Respiratory 16 16 Rate Blood Pressure 239/103 Blood Pressure 213/102 202/93 [Left] O2 Sat by Pulse 95 99 Oximetry - Reevaluation(s) Reevaluation #1: 01/12/20 19:16 bp trending down 198/88 (after nifedipine xl 60mg po) pt remains asymptomatic during entire ed stay - Consultations Consultation #1: 01/12/20 15:42 case d/w Dr Gu. pt has cognitive d/o/dementia and likely did not take her meds today. He rec lasix 80 and pt will be given a dose of her prescribed nifedepine. He states pt did receive some dialysis today. IF bp improves pt may be d/neil ED Medical Decision Making - Lab Data Result diagrams: 01/12/20 14:40 01/12/20 14:40 Lab Results 01/12/20 01/12/20 Range/Units 14:40 14:40 WBC 6.8 (4.5-11.0) K/mm3 RBC 4.43 (3.65-5.03) M/mm3 Hgb 12.7 (10.1-14.3) gm/dl Hct 40.2 (30.3-42.9) % MCV 91 (79-97) fl MCH 29 (28-32) pg MCHC 32 (30-34) % RDW 15.5 H (13.2-15.2) % Plt Count 326 (140-440) K/mm3 Lymph % (Auto) 25.6 (13.4-35.0) % [place] % (Auto) 6.5 (0.0-7.3) % Eos % (Auto) 2.7 (0.0-4.3) % Baso % (Auto) 0.9 (0.0-1.8) % Lymph # 1.7 (1.2-5.4) K/mm3 [place] # 0.4 (0.0-0.8) K/mm3 Eos # 0.2 (0.0-0.4) K/mm3 Baso # 0.1 (0.0-0.1) K/mm3 Seg Neutrophils % 64.3 (40.0-70.0) % Seg Neutrophils # 4.4 (1.8-7.7) K/mm3 Sodium 141 (137-145) mmol/L Potassium 3.6 (3.6-5.0) mmol/L Chloride 98.6 (98-107) mmol/L Carbon Dioxide 28 (22-30) mmol/L Anion Gap 18 mmol/L BUN 44 H (7-17) mg/dL Creatinine 3.6 H (0.7-1.2) mg/dL Estimated GFR 15 ml/min BUN/Creatinine Ratio 12 % Glucose 194 H (65-100) mg/dL Calcium 10.8 H (8.4-10.2) mg/dL - Medical Decision Making bp improved with ed tx initially IV labetalol with only mild improved but then blood pressure improved after additional dose of p.o. nifedipine 60 mg XL pt patient with asymptomatic hypertension dialysis patient. Patient does not present with signs of hypertensive emergency. Case discussed with Dr. Gu who continue to follow BP during dialysis and adjust meds as necessary. Patient will be discharged home - Differential Diagnosis Hypertensive emergency, uncontrolled bp, med noncompliance Critical Care Time: No Critical care attestation.: If time is entered above; I have spent that time in minutes in the direct care of this critically ill patient, excluding procedure time. ED Disposition Clinical Impression: Uncontrolled hypertension, ESRD on dialysis Disposition: TO HOME OR SELFCARE Is pt being admited?: No Does the pt Need Aspirin: No Condition: Stable Instructions: Hypertension (ED) Additional Instructions: Take your medications as prescribed. Follow-up with your doctor or doctor/clinic provided. Return if symptoms worsen as indicated by your discharge instructions. Referrals: PRIMARY CARE, [Primary Care Provider] - 3-5 Days SIENNA GU MD [Staff Physician] - 3-5 Days Time of Disposition: 19:19
[2020-01-12 14:54] LABS: Basophils # (Auto) 0.1 K/mm3 (0.0-0.1); Basophils % (Auto) 0.9 % (0.0-1.8); Eosinophils # (Auto) 0.2 K/mm3 (0.0-0.4); Eosinophils % (Auto) 2.7 % (0.0-4.3); Hematocrit 40.2 % (30.3-42.9); Hemoglobin 12.7 gm/dl (10.1-14.3); Lymphocytes # (Auto) 1.7 K/mm3 (1.2-5.4); Lymphocytes % (Auto) 25.6 % (13.4-35.0); Mean Corpuscular HGB Conc 32 % (30-34); Mean Corpuscular Volume 91 fl (79-97); Monocytes # (Auto) 0.4 K/mm3 (0.0-0.8); Monocytes % (Auto) 6.5 % (0.0-7.3); Platelet Count 326 K/mm3 (140-440); Red Blood Count 4.43 M/mm3 (3.65-5.03); Red Cell Distribution Width 15.5 % (13.2-15.2)
[2020-01-12 15:25] LABS: Calcium 10.8 mg/dL (8.4-10.2)
[2020-01-12] MEDS ORDERED: FUROSEMIDE 40 MG/4 ML INJ IV ONE (15:41)
[2020-01-12] MEDS ORDERED: NIFEdipine XL 60 MG TAB PO ONE (15:41)
[2020-01-12 20:05] VITALS: BP 198/86
== END 2020-01-12 20:04 | disposition home or self-care (01) ==
LOC: ED 14:03
DX: E13.22 Other specified diabetes mellitus with diabetic chronic kidney disease (principal); I13.0 Hypertensive heart and chronic kidney disease with heart failure and stage 1 through stage 4 chronic kidney disease, or unspecified chronic kidney disease; N18.4 Chronic kidney disease, stage 4 (severe); I50.31 Acute diastolic (congestive) heart failure; M13.88 Other specified arthritis, other site; F03.90 Unspecified dementia, unspecified severity, without behavioral disturbance, psychotic disturbance, mood disturbance, and anxiety; Z99.2 Dependence on renal dialysis; Z79.4 Long term (current) use of insulin; Z79.899 Other long term (current) drug therapy
CPT/HCPCS: 36415; 80048; 85025; 96374; 96375; 96376; 99284; J1940

== ENCOUNTER 2020-01-18 11:20 | Outpatient (CLI) | payer MEDICARE | END 2020-01-18 11:21 | disposition home or self-care (01) | LOC: LAB 11:20 | PROVIDERS: ATTEND Internal Medicine Cardiovascular Disease | DX: Z01.810 Encounter for preprocedural cardiovascular examination (principal); Z11.59 Encounter for screening for other viral diseases | CPT/HCPCS: U0003 ==

== ENCOUNTER 2020-01-20 05:55 | Day surgery (SDC) | payer MEDICARE ==
[2020-01-20] MEDS ORDERED: ASPIRIN EC 325 MG TAB PO ONE (07:15)
[2020-01-20] MEDS ORDERED: SODIUM CHLORIDE 0.9% 500 ML 500 ML ONE (07:22)
[2020-01-20] MEDS: SODIUM CHLORIDE 0.9% 500 ML 500 ML IV SCH ×2 (07:30→09:45)
[2020-01-20 08:02] LABS: Basophils % (Auto) 0.8 % (0.0-1.8); Eosinophils # (Auto) 0.1 K/mm3 (0.0-0.4); Eosinophils % (Auto) 1.9 % (0.0-4.3); Hematocrit 36.7 % (30.3-42.9); Hemoglobin 11.8 gm/dl (10.1-14.3); Lymphocytes # (Auto) 1.7 K/mm3 (1.2-5.4); Lymphocytes % (Auto) 30.4 % (13.4-35.0); Mean Corpuscular HGB Conc 32 % (30-34); Mean Corpuscular Volume 89 fl (79-97); Monocytes # (Auto) 0.6 K/mm3 (0.0-0.8); Monocytes % (Auto) 10.7 % (0.0-7.3); Platelet Count 246 K/mm3 (140-440); Red Blood Count 4.14 M/mm3 (3.65-5.03); Red Cell Distribution Width 15.1 % (13.2-15.2)
[2020-01-20 08:12] LABS: INR 1.01 (0.87-1.13)
[2020-01-20 08:14] LABS: Calcium 10.4 mg/dL (8.4-10.2)
[2020-01-20] MEDS ORDERED: HEPARIN/NS 5000 UNIT/500ML 1,000 ML IR ONE (09:09)
[2020-01-20] MEDS ORDERED: HEPARIN 10,000 UNITS/10 ML VIAL ONE (09:09)
[2020-01-20] MEDS ORDERED: NITROGLYCERIN SYRINGE 0 ML ONE (09:10)
[2020-01-20] MEDS ORDERED: VERAPAMIL 5 MG/2 ML INJ ONE (09:10)
[2020-01-20] MEDS: fentaNYL 100 MCG/2 ML INJ ONE ×2 (09:44→10:19)
[2020-01-20] MEDS: LIDOCAINE (2%) 20 MG/1 ML VIAL 20 ML MDV INFILTRATI ONE ×2 (09:45→10:21)
[2020-01-20] MEDS: MIDAZOLAM 2 MG/2 ML INJ ONE ×2 (09:45→10:19)
[2020-01-20] MEDS ORDERED: hydrALAZINE 20 MG/1 ML INJ ONE (10:33)
--- NOTE | 2020-01-20 10:53 | Discharge Summary ---
Short Stay Discharge Plan Weight Bearing Status: Partial Weight Bearing Diet: low fat, low cholesterol, low salt, diabetic Wound: keep clean and dry Special Instructions: no heavy lifting (3 days) Additional Instructions: ROUTINE HEMODIALYSIS TO RESUME TOMORROW Follow up with: HANG EL MD [Primary Care Provider] - 7 Days ALVARADO AGOSTO MD [Staff Physician] - 7 Days
--- NOTE | 2020-01-20 10:59 | Cardiac Catherization Report ---
CARDIAC CATHETERIZATION REPORT REASON FOR PROCEDURE: The patient is a 69-year-old woman with end-stage renal disease, on hemodialysis, previous CVA, chronic hypertension and a recent admission for heart failure. A thallium stress test was done that showed an anterior defect. The patient is currently undergoing preoperative cardiac assessment for anticipated vascular graft surgery for dialysis. Cardiac catheterization was recommended for preoperative assessment. PROCEDURES: 1. Left heart catheterization. 2. Selective left and right coronary angiography. 3. Left ventricular angiography. 4. Sedation time, start 10:19 and 10:32. DESCRIPTION OF PROCEDURE: The patient was prepped and draped in a sterile fashion after informed consent. The right femoral artery was entered using Seldinger technique followed by placement of a 6-[place] sheath. Selective left and right coronary angiography was performed using #4 left and right Mark catheters. Pigtail catheter was used for left ventricular angiography. The catheters were then removed, sheath removed, and hemostasis achieved using manual compression. The patient was returned to the postprocedure unit in stable condition. There were no complications. FINDINGS: HEMODYNAMICS: Left ventricular end-diastolic pressure was 20, following coronary angiography. Ascending aortic pressure was 203/80. There was no significant pressure gradient on pullback across the aortic valve. CORONARY ANGIOGRAPHY: Left main coronary artery was free of significant disease. The left anterior descending artery was completely occluded in its mid segment. This was a long segment of chronic total occlusion. The mid and distal segments of a large wraparound LAD were perfused by left to left and right to left collaterals. A medium to large proximal diagonal branch of the LAD contained mild nonobstructive proximal disease. The proximal AV groove circumflex artery was notable for mild irregularities. Following this, there was a fairly large mid obtuse marginal branch. The mid obtuse marginal contained an irregular, 75-80% stenosis of its mid segment. The circumflex then continued, terminating in a small terminal obtuse marginal. Beyond the obtuse marginal, there was diffuse severe small vessel atherosclerosis of the terminal branches of the circumflex system. The right coronary artery was dominant. This vessel contained a long, 70-80% stenosis of its proximal segment. This was followed by another long, greater than 80% of the distal segment between the acute margin and the posterior descending branch. Left ventricular chamber size and systolic function were normal. Left ventricular systolic ejection fraction was greater than 60-65%. CONCLUSION: 1. 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 2. Normal left ventricular systolic function, ejection fraction 60-65%. RECOMMENDATION: The patient will be recommended for CT surgery assessment for multivessel revascularization with anticipated bypass grafts to the LAD, mid obtuse marginal, and a distal right coronary vessels. JOB# [id number] CA/NTS
[2020-01-20] MEDS ORDERED: cloNIDine 0.1 MG TAB PO PRN (11:00)
[2020-01-20 15:02] VITALS: BP 152/74
== END 2020-01-20 15:30 | disposition other institution (70) ==
LOC: CATHLABREC 05:55
PROVIDERS: ATTEND Internal Medicine Cardiovascular Disease
DX: I25.10 Atherosclerotic heart disease of native coronary artery without angina pectoris (principal); I13.2 Hypertensive heart and chronic kidney disease with heart failure and with stage 5 chronic kidney disease, or end stage renal disease; E11.22 Type 2 diabetes mellitus with diabetic chronic kidney disease; N18.6 End stage renal disease; I50.9 Heart failure, unspecified; R94.39 Abnormal result of other cardiovascular function study; E78.5 Hyperlipidemia, unspecified; F32.9 Major depressive disorder, single episode, unspecified; M19.90 Unspecified osteoarthritis, unspecified site; G40.909 Epilepsy, unspecified, not intractable, without status epilepticus; G93.41 Metabolic encephalopathy; Z79.899 Other long term (current) drug therapy; Z79.82 Long term (current) use of aspirin; Z98.890 Other specified postprocedural states; Z87.440 Personal history of urinary (tract) infections; Z98.49 Cataract extraction status, unspecified eye; Z90.710 Acquired absence of both cervix and uterus; Z86.73 Personal history of transient ischemic attack (TIA), and cerebral infarction without residual deficits
CPT/HCPCS: 36415; 80048; 85025; 85610; 85730; 93005; 93458; 99156; C1894; J0360; J1644; J2250; J3010; J7040; Q9967